=== PATIENT | female | born 1985 | race Caucasian/White ===

== ENCOUNTER → 2017-10-18 | Outpatient (CLI) | payer OTHER ==
[~2017-10-18] MED LIST: ALPR-411 PO; CLX20 PO; ZOLP10TA PO
== END | disposition home or self-care (01) ==
LOC: C.PAPS 14:27
PROVIDERS: ATTEND Physician Assistant
DX: Z01.411 Encounter for gynecological examination (general) (routine) with abnormal findings (principal)

== ENCOUNTER → 2017-12-06 | Outpatient (CLI) | payer OTHER | END | disposition home or self-care (01) | LOC: C.LABSPEC 11:33 | PROVIDERS: ATTEND Obstetrics & Gynecology | DX: O16.1 Unspecified maternal hypertension, first trimester (principal) ==

== ENCOUNTER → 2017-12-14 | Outpatient (CLI) | payer OTHER ==
[2017-12-14 14:37] LABS: BASO % 0.4 %; BASO ABS # 0.04 K/uL (0-0.2); EOS ABS # 0.11 K/uL (0-0.5); HEMATOCRIT 46.9 % (37-47); HEMOGLOBIN 16.7 g/dL (12.0-16.0); IG# 0.03 K/uL (0.00-0.02); LYMPH % 21.4 %; LYMPH ABS # 2.39 K/uL (1.2-3.4); MEAN CELL VOLUME 84.1 fL (80-100); MEAN CORPUSCULAR HEMOGLOBIN 29.9 pg (25-34); MEAN CORPUSCULAR HGB CONC 35.6 g/dl (32-36); MEAN PLATELET VOLUME 9.3 fL (7.4-10.4); MONO % 3.9 %; MONO ABS # 0.44 K/uL (0.11-0.59); NEUT ABS # 8.14 K/uL (1.4-6.5); PLATELET COUNT 311 K/uL (130-400); RED CELL DISTRIBUTION WIDTH CV 13.3 % (11.5-14.5); RED CELL DISTRIBUTION WIDTH SD 40.5 fL (36.4-46.3); WHITE BLOOD COUNT 11.15 K/uL (4.8-10.8)
== END | disposition home or self-care (01) ==
LOC: C.LAB1850 13:54
PROVIDERS: ATTEND Obstetrics & Gynecology
DX: O16.1 Unspecified maternal hypertension, first trimester (principal)

== ENCOUNTER → 2018-02-14 | Outpatient (CLI) | payer OTHER ==
[2018-02-14 14:14] LABS: BLOOD UREA NITROGEN 12 mg/dl (7-18); CREATININE 0.93 mg/dl (0.60-1.20); GLUCOSE 97 mg/dl (70-99)
[2018-02-14 14:15] LABS: ALBUMIN 3.9 gm/dl (3.4-5.0); ALKALINE PHOSPHATASE 32 U/L (45-117); ALT/SGPT 53 U/L (12-78); AST/SGOT 28 U/L (15-37); CALCIUM 8.8 mg/dl (8.5-10.1); CARBON DIOXIDE 25 mmol/L (21-32); CHOLESTEROL 234 mg/dl (0-200); LDL CHOLESTEROL CALCULATED 137 mg/dl; POTASSIUM 3.9 mmol/L (3.5-5.1); SODIUM 137 mmol/L (136-145); TOTAL PROTEIN 6.9 gm/dl (6.4-8.2)
== END | disposition home or self-care (01) ==
LOC: C.LABBC 10:03
PROVIDERS: ATTEND Nurse Practitioner Family
DX: I10 Essential (primary) hypertension (principal); E78.5 Hyperlipidemia, unspecified

== ENCOUNTER 2019-08-06 12:42 | Inpatient (IN) ==
[2019-08-06] MEDS ORDERED: MAG SULFATE 50% 1GM/2ML 10ML VIAL IV ONE (13:03)
[2019-08-06 13:18] LABS: Basophils # (auto) 0.04 K/uL (0-0.2); Basophils % (auto) 0.3 %; Eosinophils # (auto) 0.17 K/uL (0-0.5); Eosinophils % (auto) 1.2 %; Hematocrit (blood only) 44.1 % (37-47); Hemoglobin 15.3 g/dL (12.0-16.0); Immature Granulocytes # (auto) 0.06 K/uL (0.00-0.02); Immature Granulocytes % (auto) 0.4 %; Lymphocytes # (auto) 2.51 K/uL (1.2-3.4); Lymphocytes % (auto) 17.4 %; Mean Corpuscular Volume 83.5 fL (80-100); Mean Platelet Volume 10.8 fL (7.4-10.4); Monocytes # (auto) 0.67 K/uL (0.11-0.59); Monocytes % (auto) 4.6 %; Neutrophils # (auto) 10.96 K/uL (1.4-6.5); Neutrophils % (auto) 76.1 %; Platelet Count 210 K/uL (130-400); RDW Coefficient of Variation 14.6 % (11.5-14.5); RDW Standard Deviation 44.2 fL (36.4-46.3); Red Blood Count 5.28 M/uL (4.2-5.4); White Blood Count 14.41 K/uL (4.8-10.8)
[2019-08-06] MEDS ORDERED: LACTATED RINGER'S 1,000 ML IV PRN (13:19)
[2019-08-06 13:21] LABS: Mean Corpuscular Hgb Conc 34.7 g/dL (32-36)
[2019-08-06] MEDS ORDERED: LABETALOL HCL IV 5 MG/ML 20ML IV ONE ×3 (13:25→15:43)
[2019-08-06 13:26] LABS: INR 0.9 (0.9-1.1); Prothrombin Time 9.7 Seconds (9.0-12.0)
[2019-08-06] MEDS ORDERED: LABETALOL HCL IV 5 MG/ML 20ML IV STA ×2 (13:31→16:19)
[2019-08-06] MEDS ORDERED: MAGNESIUM SULFATE 4GM / WTR 100 ML BAG IV ONE ×2 (13:31→13:33)
[2019-08-06] MEDS ORDERED: MAGNESIUM SULFATE 40GM / WTR 1,000 ML BAG IV ONE (13:34)
[2019-08-06 13:36] LABS: Alanine Aminotransferase 16 U/L (12-78); Albumin Level 2.3 gm/dl (3.4-5.0); Aspartate Aminotransferase 19 U/L (15-37); Bilirubin Direct < 0.1 mg/dl (0-0.2); Est GFR (African American) 109.9; Est GFR (Non-African American) 94.9
[2019-08-06 13:38] LABS: Alkaline Phosphatase 79 U/L (45-117); Bilirubin,Total 0.2 mg/dl (0.2-1); Total Protein 6.1 gm/dl (6.4-8.2)
[2019-08-06 13:51] LABS: Creatinine Urine Random < 13.0 mg/dl; Total Protein Urine Random 90.1 mg/dl (0-11.9)
--- NOTE | 2019-08-06 14:08 | Anesthesiology Consultation ---
Date of Service August 06, 2019 Assessment & Plan Chart Review Chart Review: Acceptable Risk for Surgery Consults Requested none ASA [id number] Proposed Anesthesia Anesthesia Type: Spinal Risk / Benefits Reviewed With: PT / POA / Parent / Guardian, Accepts Plan and Informed Consent Obtained History Height/Weight Height: 5 ft 6 in Weight: 120.656 kg Allergies Allergy/AdvReac Type Severity Reaction Status Date / Time No Known Drug Allergies Allergy Verified 07/30/19 10:00 Medications Home Medications Medication Instructions Recorded Confirmed Last Taken PNV cmb#95-ferrous fumarate-FA 1 tab PO DAILY 01/09/19 07/30/19 01/08/19 [] labetalol 100 mg PO Q12 01/09/19 07/30/19 01/09/19 aspirin 81 mg tablet,delayed 81 mg PO DAILY 05/06/19 07/30/19 Unknown release acetone (urine) test #50 ea 07/12/19 07/30/19 Unknown blood sugar diagnostic #120 ea 07/12/19 07/30/19 Unknown lancets 33 gauge #120 ea 07/12/19 07/30/19 Unknown NPO Date Last Intake of Fluids: 08/06/19 Time Last Intake of Fluids: 11:30 Date Last Intake of Solids: 08/06/19 Time Last Intake of Solids: 11:00 Past Medical History Medical History (Updated 08/06/19 @ 14:06 by Quincy Pinto DO) Depression with anxiety Gestational diabetes History of miscarriage No chronic diseases present No significant past surgical history Obesity affecting , antepartum Secondary polycythemia Exercise / Class Metabolic Activity III < 4 Walking/Shop/Light housework Past Surgical History Surgical History S/P LEEP of cervix S/P wisdom tooth extraction Status post colposcopy Past Anesthesia History No Hx of Anesthesia Complications and No Family Hx of Anesthesia Complications History of PONV No Hx of PONV and No Hx of Motion Sickness Social History Smoking Status: Former smoker Do You Dip or Chew Tobacco: No Hx Alcohol Use: No Hx Substance Use: No Physical Exam Vital Signs Last Vital Signs Temp 97.9 F 08/06/19 13:09 Pulse 94 H 08/06/19 14:00 Resp 18 08/06/19 13:09 BP 215/110 H 08/06/19 13:56 Pulse Ox 97 08/06/19 14:00 ENMT Mouth: no dentition abnormality Thyromental Distance: > or= 3.5 Finger Breadths Mallampati Class: II Neck normal visual inspection Respiratory normal respiratory effort Auscultation: lungs clear to auscultation bilaterally Cardiovascular Rate/Rhythm: regular rate and regular rhythm Testing Laboratory Results 08/06/19 13:01 08/06/19 13:01 PT 9.7 Seconds (9.0-12.0) 08/06/19 13:01 INR 0.9 (0.9-1.1) 08/06/19 13:01
[2019-08-06] MEDS ORDERED: fentaNYL citrate 100 MCG/2 ML VIAL ONE (14:13)
[2019-08-06] MEDS ORDERED: MoRPHine SULFATE PF 1 MG/ML 10 ML AMP/VIAL ONE (14:13)
--- NOTE | 2019-08-06 14:13 | History & Physical Report ---
Date of Service August 06, 2019 Assessment & Plan (1) Supervision of high risk , antepartum: (2) Chronic hypertension with superimposed pre-eclampsia: -Nonstress test on labor and delivery is reactive -Patient with elevated blood pressure and +2 protein giving her the diagnosis of superimposed preeclampsia -Blood pressure levels are consistent with severe preeclampsia -Discussed the case with maternal- medicine at [facility] -Maternal- medicine in agreement that patient needs to be delivered -Discussed with the patient the need for urgent delivery by section -Induction of labor not indicated during due to the prolonged timeframe involved -Offered the patient trans-port to [facility] for delivery at tertiary care center, patient declines -Risks, benefits, and alternatives to the section discussed, all questions answered -Permit has been signed and the patient wishes to proceed History of Present Illness Chief Complaint: Elevated blood pressure Primary Care Provider: Pepe Valderrama III, VEE The patient is a 34-year-old 2 para 0 with an EDC of 07 September by dates and first trimester ultrasound, at 35+ weeks gestational age, who presents today from the office for evaluation of elevated blood pressure. The patient carries a diagnosis of chronic hypertension predating the . She has been on labetalol 100 mg twice daily throughout the . Patient was seen today for a scheduled nonstress test. She was noted to have markedly elevated blood pressures in the 200/120 range and was sent to labor and delivery for evaluation. The patient is not complaining of any headache or right upper quadrant pain. She has noticed an increase in the swelling over the last 48 hours but in general she states that she feels well. The patient has been followed with the chronic hypertensive protocol. She has been on baby aspirin since the first trimester. She has had serial ultrasounds for growth which have been reassuring and has had testing which has been reassuring. Patient was also diagnosed with diabetes gestational at 28 weeks gestational age and has been diet controlled. Laboratory values for this show blood type of A+, antibody negative, rubella immune, hepatitis B negative, HIV negative, the patient declined all genetic screening both maternal and , gestational diabetes diagnosed to 28 weeks, no third trimester beta strep culture. Allergies Allergy/AdvReac Type Severity Reaction Status Date / Time No Known Drug Allergies Allergy Verified 07/30/19 10:00 Home Medications Home Medications Medication Instructions Recorded Confirmed Type PNV cmb#95-ferrous fumarate-FA 1 tab PO DAILY 01/09/19 07/30/19 History [] labetalol 100 mg PO Q12 01/09/19 07/30/19 History aspirin 81 mg tablet,delayed 81 mg PO DAILY 05/06/19 07/30/19 History release acetone (urine) test #50 ea 07/12/19 07/30/19 Rx blood sugar diagnostic #120 ea 07/12/19 07/30/19 Rx lancets 33 gauge #120 ea 07/12/19 07/30/19 Rx Patient History Medical History (Updated 08/06/19 @ 14:10 by Guillermo Adams Jr, MD, FACOG) Depression with anxiety Gestational diabetes History of miscarriage No chronic diseases present No significant past surgical history Obesity affecting , antepartum Secondary polycythemia Surgical History S/P LEEP of cervix S/P wisdom tooth extraction Status post colposcopy Social History Preferred Language: Ivorian marital status: Feels Safe at Home: Yes Safety Concerns: Feels Safe At This Time Smoking Status: Former smoker Do You Dip or Chew Tobacco: No ; Second Hand Exposure: No ; Tobacco Cessation Education Requested by Patient: No Hx Alcohol Use: No Hx Substance Use: No Physical Exam Constitutional: WD/WN, vitals as above Neck: trachea midline, no thyromegaly Respiratory: normal respiratory effort, lungs clear to auscultation Cardiovascular: RRR, no murmur, no edema Extremities: + edema (3+ pitting of lower extremities bilaterally); no calf tenderness Gastrointestinal (Abdomen): Gravid, vertex, positive heart tones, estimated weight of 5 and half pounds Skin: no lesions Neurologic: patellar DTR's 2+ bilat, sensation intact Psychiatric: A+Ox3, euthymic affect Genitourinary: Cervix: closed/50%/-2 Lymphatic: no lymphadenopathy Results & Data Vital Signs (Past 12 Hours) Vital Signs Temp Pulse Resp BP Pulse Ox 08/06/19 14:00 94 H 97 08/06/19 13:56 82 215/110 H 08/06/19 13:55 79 99 08/06/19 13:51 76 214/107 H 08/06/19 13:50 82 99 08/06/19 13:46 86 222/116 H 08/06/19 13:45 79 98 08/06/19 13:41 89 227/110 H 08/06/19 13:40 91 H 98 08/06/19 13:36 89 244/128 H 08/06/19 13:35 96 H 99 08/06/19 13:32 105 H 239/136 H 08/06/19 13:30 104 H 98 08/06/19 13:25 85 98 08/06/19 13:21 82 226/120 H 08/06/19 13:20 74 98 08/06/19 13:18 78 233/114 H 08/06/19 13:15 76 99 08/06/19 13:12 75 227/109 H 08/06/19 13:09 97.9 F 75 18 227/109 H 99 08/06/19 13:06 68 216/108 H 08/06/19 13:01 79 212/107 H 08/06/19 12:56 76 219/111 H 08/06/19 12:54 76 225/112 H 08/06/19 12:50 77 218/105 H
[2019-08-06] MEDS ORDERED: OXYTOCIN 10 UNITS/ML VIAL ONE ×5 (14:17→15:20)
[2019-08-06] MEDS ORDERED: CITRIC ACID/SODIUM CITRATE 15 ML UDC ONE (14:33)
[2019-08-06] MEDS ORDERED: ePHEDrine sulfate 50 MG/ML AMP IV PRN (15:15)
[2019-08-06] MEDS ORDERED: NALOXONE HCL 0.4 MG/1 ML VIAL/CARP IV PRN (15:15)
[2019-08-06] MEDS ORDERED: NALBUPHINE HCL INJ 10 MG/ML AMP IV PRN (15:15)
[2019-08-06] MEDS ORDERED: DC INTRASPINAL MORPHINE SCH (15:15)
[2019-08-06] MEDS ORDERED: NALOXONE HCL 0.08 MG in SYRINGE 1.8 ML IV PRN (15:15)
[2019-08-06] MEDS ORDERED: MEPERIDINE HCL 25 MG/ML CARP IV PRN (15:15)
[2019-08-06] MEDS ORDERED: DiphenhydrAMINE HCL 50 MG/ML VIAL IV PRN (15:15)
[2019-08-06] MEDS ORDERED: LACTATED RINGER'S 500 ML IV PRN (15:15)
[2019-08-06] MEDS ORDERED: NALOXONE HCL 1 MG in SODIUM CHLORIDE 0.9% 1000ML 1,000 ML IV PRN (15:15)
[2019-08-06] MEDS ORDERED: NO NARCOTICS OR SEDATIVES SCH (15:15)
[2019-08-06] MEDS ORDERED: MoRPHine SULFATE PF 1 MG/ML 10 ML AMP/VIAL INT SPINAL ONE (15:15)
[2019-08-06] MEDS ORDERED: SODIUM CHLORIDE 0.9% 1000ML 1,000 ML IV SCH (15:15)
[2019-08-06] MEDS ORDERED: KETOROLAC 30 MG/ML VIAL IV PRN (15:15)
[2019-08-06] MEDS ORDERED: ONDANSETRON INJ 2 MG/ML 2 ML VIAL ONE (15:20)
[2019-08-06 15:40] LABS: CO2 Cord Arterial Blood 44 mmHg (39.1-73.5); HCO3 Cord Arterial Blood 26 mmol/L (19.7-28.5); Oxygen Sat Cord Arterial Blood < 60.0 % (<60); PO2 Cord Arterial Blood 26.6 % (4.1-31.7); pH Cord Arterial Blood 7.38 (7.1-7.38)
[2019-08-06 15:44] LABS: Base Excess Cord Venous Blood -2.7 mEq/L (-7.7-1.9); Cord Venous Blood HCO3 22 mmol/L (18.4-26.8); Cord Venous Blood PCO2 36 mmHg (30.4-57.2); Cord Venous Blood PO2 31 mmHg (14.1-43.3); O2 Saturation Cord Venous Bld 69.2 % (<68)
--- NOTE | 2019-08-06 15:47 | Post Operative Brief Note ---
PG Immediate Post Op with CF Date of Surgery August 06, 2019 Pre & Post Diagnosis Operation Date: 08/06/19 14:30 Pre-Op Diagnosis: 1.High Risk at 35 1/7 weeks 2.Chronic Hypertension 3.Superimposed Preeclampsia, Severe Post-Op Diagnosis: Same; Delivery of a live female child at 1504 I identified the patient and participated in the time-out.: Yes Procedure Operation Date: 08/06/19 14:30 Actual Procedures p Section in LD(Bilateral) - Guillermo Adams Jr, MD, FACOG Surgeon Guillermo Adams Jr, MD, FACOG [facility] Therapist Cristy Estimated Blood Loss 800 Findings See Below (viable female, Apgars 7/8, 5lbs 12 ozs, art pH 7.38, venous pH 7.40, normal appearing tunes and ovaries bilaterally) Specimens Specimen Description: A.Placenta-exam B.Cord Blood C.Arterial and Venous Gases Drains Aranda Catheter
[2019-08-06] MEDS: MAGNESIUM SULFATE / WTR 40 GM/1,000 ML BAG IV SCH (15:58)
[2019-08-06] MEDS ORDERED: BENZOCAINE 20% AER SPR 82.5 GM CAN EXT PRN (16:19)
[2019-08-06] MEDS ORDERED: SUPERCREAM 0.870% 15 GM JAR EXT PRN (16:19)
[2019-08-06] MEDS ORDERED: ONDANSETRON INJ 2 MG/ML 2 ML VIAL IV PRN (16:19)
[2019-08-06] MEDS ORDERED: HYDROCORTISONE ACETATE 25 MG SUPP PR PRN (16:19)
--- NOTE | 2019-08-06 16:43 | Anesthesiology Progress Note ---
Date of Service August 06, 2019 Anesthesia Post Procedure Vital Signs Vital Signs: Temp Pulse Resp BP Pulse Ox 08/06/19 16:39 81 95 08/06/19 16:38 82 180/83 H 94 08/06/19 16:34 81 96 08/06/19 16:30 74 185/89 H 08/06/19 16:29 77 97 08/06/19 16:24 79 96 08/06/19 16:19 78 145/78 H 96 08/06/19 16:14 76 96 08/06/19 16:09 75 96 08/06/19 16:08 75 184/84 H 08/06/19 16:07 80 93 08/06/19 16:04 77 96 08/06/19 15:59 77 97 08/06/19 15:57 75 172/82 H 08/06/19 15:54 77 96 08/06/19 14:35 87 97 08/06/19 14:33 82 217/100 H 08/06/19 14:32 90 94 08/06/19 14:30 80 98 08/06/19 14:26 84 192/90 H 08/06/19 14:25 80 97 08/06/19 14:21 82 202/96 H 08/06/19 14:20 83 97 08/06/19 14:15 93 H 97 08/06/19 14:11 85 199/95 H 08/06/19 14:10 90 98 08/06/19 14:06 80 212/98 H 08/06/19 14:05 79 98 08/06/19 14:03 83 213/113 H 08/06/19 14:00 94 H 97 08/06/19 13:56 82 215/110 H 08/06/19 13:55 79 99 08/06/19 13:51 76 214/107 H 08/06/19 13:50 82 99 08/06/19 13:46 86 222/116 H 08/06/19 13:45 79 98 08/06/19 13:41 89 227/110 H 08/06/19 13:40 91 H 98 08/06/19 13:36 89 244/128 H 08/06/19 13:35 96 H 99 08/06/19 13:32 105 H 239/136 H 08/06/19 13:30 104 H 98 08/06/19 13:25 85 98 08/06/19 13:21 82 226/120 H 08/06/19 13:20 74 98 08/06/19 13:18 78 233/114 H 08/06/19 13:15 76 99 08/06/19 13:12 75 227/109 H 08/06/19 13:09 97.9 F 75 18 227/109 H 99 08/06/19 13:06 68 216/108 H 08/06/19 13:01 79 212/107 H 08/06/19 12:56 76 219/111 H 08/06/19 12:54 76 225/112 H 08/06/19 12:50 77 218/105 H Transfer of Care Handoff Completed per policy Notes Mental Status: alert / awake / arousable and participated in evaluation Patient Amnestic to Procedure: Yes Nausea / Vomiting: adequately controlled Pain: adequately controlled Airway Patency, RR, SpO2: stable & adequate BP & HR: stable & adequate Hydration State: stable & adequate Neuraxial Anesthesia: was administered and sensory block is resolving Anesthetic Complications: no major complications apparent and Pt Satisfied with anesthetic care
[2019-08-06] MEDS: OXYTOCIN 20 UNITS in LACTATED RINGER'S 1,000 ML IV SCH (17:18)
--- NOTE | 2019-08-06 18:05 | Operative Report ---
DATE OF OPERATION: 08/06/2019 PREOPERATIVE DIAGNOSES: 1. Complicated at 35+ weeks gestational age. 2. Chronic hypertension. 3. Superimposed preeclampsia, severe. POSTOPERATIVE DIAGNOSES: 1. Complicated at 35+ weeks gestational age. 2. Chronic hypertension. 3. Superimposed preeclampsia, severe. PROCEDURE PERFORMED: Primary low cervical transverse section. SURGEON: Guillermo Adams MD. ROOM WORKER: Dr. Temo Muniz. ANESTHESIA: Spinal. FINDINGS: Viable female with Apgars of 7 and 8 and weight of 5 pounds 12 ounces. Arterial cord pH 7.38, venous cord pH 7.40. Normal appearing tubes and ovaries bilaterally. PROCEDURE IN DETAIL: The patient was taken to the operating room and after spinal anesthesia, was placed in supine position and draped and prepped in the usual fashion. Pfannenstiel type incision was made. Underlying subcutaneous tissue was dissected down to the ventral abdominal fascia, which was nicked and opened in a horizontal manner. Preperitoneal fascia was dissected away until the peritoneal cavity was entered and opened in a vertical manner. Bladder blade was placed and the peritoneum overlying the uterus was elevated, opened in a semi-lunar fashion. The inferior margin of which was taken down creating the bladder flap. The uterus was entered sharply and extended in a semilunar fashion manually. Viable female infant was delivered from a cephalic presentation. Cord was clamped and cut and the baby was passed off to Pediatrics who was in attendance for the delivery. Cord gases, cord blood samples obtained. Placenta delivered spontaneously and sent for pathological evaluation. The uterus was then exteriorized. The uterine cavity was wiped clean of any residual blood tissue and/or clot. The patient received Hemabate 250 mcg directly into the myometrium. Uterine incision was then closed with 2 layers of 4-0 Vicryl, the first a running locking stitch, the second an imbricating stitch. The patient then received Pitocin 20 units directly into the myometrium. Hemostasis was present. The uterus was returned to the pelvic cavity. The pericolic gutters were cleared bilaterally of any blood tissue or clot. The pelvis was thoroughly irrigated with 1000 mL of warm saline and removed. All pedicles were inspected for hemostasis. Sponge and needle count was correct. Rectus muscle was plicated in the midline with a running 2-0 Vicryl stitch. The fascia was closed laterally to the midline with a running 0 Vicryl suture. The subcutaneous tissue was irrigated with warm saline and then reapproximated with interrupted 2-0 plain sutures. The skin incision was closed with 4-0 Vicryl subcuticular suture. Sterile dressing was applied and the patient was taken to the recovery room in satisfactory condition. I attest to the content of the Intraoperative Record and any orders documented therein. Any exception s are noted below.
[2019-08-06] MEDS ORDERED: Nursing to Pharmacy Communication ONE (19:24)
[2019-08-06 19:58] LABS: Basophils # (auto) 0.02 K/uL (0-0.2); Basophils % (auto) 0.1 %; Eosinophils # (auto) 0.11 K/uL (0-0.5); Eosinophils % (auto) 0.6 %; Hematocrit (blood only) 40.9 % (37-47); Immature Granulocytes # (auto) 0.06 K/uL (0.00-0.02); Immature Granulocytes % (auto) 0.3 %; Lymphocytes # (auto) 2.08 K/uL (1.2-3.4); Lymphocytes % (auto) 11.5 %; Mean Corpuscular Hemoglobin 28.9 pg (25-34); Mean Corpuscular Volume 84.5 fL (80-100); Mean Platelet Volume 10.9 fL (7.4-10.4); Monocytes # (auto) 0.74 K/uL (0.11-0.59); Monocytes % (auto) 4.1 %; Neutrophils # (auto) 15.04 K/uL (1.4-6.5); Neutrophils % (auto) 83.4 %; Platelet Count 216 K/uL (130-400); RDW Coefficient of Variation 14.5 % (11.5-14.5); RDW Standard Deviation 44.6 fL (36.4-46.3); Red Blood Count 4.84 M/uL (4.2-5.4); White Blood Count 18.05 K/uL (4.8-10.8)
[2019-08-06 20:21] LABS: Alanine Aminotransferase 15 U/L (12-78); Albumin Level 2.1 gm/dl (3.4-5.0); Alkaline Phosphatase 68 U/L (45-117); Aspartate Aminotransferase 18 U/L (15-37); Bilirubin Direct < 0.1 mg/dl (0-0.2); Bilirubin,Total 0.2 mg/dl (0.2-1); Magnesium Therapeutic L&D Only 4.5 mg/dL (4.0-8.0); Total Protein 5.4 gm/dl (6.4-8.2)
[2019-08-06 20:34] LABS: Mean Corpuscular Hgb Conc 34.2 g/dL (32-36)
[2019-08-06] MEDS: LABETALOL HCL 100 MG TAB PO SCH (20:35)
[2019-08-07 01:56] LABS: Basophils # (auto) 0.01 K/uL (0-0.2); Basophils % (auto) 0.1 %; Eosinophils # (auto) 0.14 K/uL (0-0.5); Hemoglobin 12.8 g/dL (12.0-16.0); Immature Granulocytes # (auto) 0.02 K/uL (0.00-0.02); Immature Granulocytes % (auto) 0.1 %; Lymphocytes # (auto) 1.98 K/uL (1.2-3.4); Lymphocytes % (auto) 14.8 %; Mean Corpuscular Hemoglobin 29.4 pg (25-34); Mean Corpuscular Volume 85.1 fL (80-100); Mean Platelet Volume 10.6 fL (7.4-10.4); Monocytes # (auto) 0.53 K/uL (0.11-0.59); Neutrophils # (auto) 10.69 K/uL (1.4-6.5); Platelet Count 178 K/uL (130-400); RDW Coefficient of Variation 14.4 % (11.5-14.5); RDW Standard Deviation 44.3 fL (36.4-46.3); Red Blood Count 4.35 M/uL (4.2-5.4); White Blood Count 13.37 K/uL (4.8-10.8)
[2019-08-07 02:21] LABS: Mean Corpuscular Hgb Conc 34.6 g/dL (32-36)
[2019-08-07] MEDS ORDERED: CITRIC ACID/SODIUM CITRATE 15 ML UDC PO SCH (06:00)
[2019-08-07] MEDS ORDERED: CEFAZOLIN 3000MG 65 ML IV SCH (06:00)
[2019-08-07] MEDS: OXYTOCIN 20 UNITS in LACTATED RINGER'S 1,000 ML IV SCH (06:45)
--- NOTE | 2019-08-07 06:52 | Obstetrical Progress Note ---
Date of Service <Blair Osorioarianna - Last Filed: 08/07/19 06:55> August 07, 2019 Assessment & Plan <DO Srinivasa Kaufman Last Filed: 08/07/19 06:55> (1) Chronic hypertension with superimposed pre-eclampsia: -POD#1 - secondary to chronic hypertension with superimposed severe preeclampsia - Continue to monitor BP, most recent 170/81. Max >220/>130 prepartum. - GBS unknown, Blood Type A+ - 3g Ancef given pre-op - Continue magnesium 2g/hr and monitor for signs of worsening preeclampsia. - 2AM Magnesium level 5.0 - Labetalol 100mg BID - Currently noting slight headache, denies SOB, visual changes, worsening swelling, RUQ pain. - Boswell Catheter in place. - Pain well controlled. - Routine post care - After discharge will have [address] Angie Holman #:: 1 Subjective <Blair Osorioarianna - Last Filed: 08/07/19 06:55> Ambulation: limited ambulation Voiding: boswell catheter in place (clear yellow urine draining) Passing Gas:: No Diet Tolerance:: clear liquids Lochia:: Small Feeding Type:: breast feeding (attempting, baby supplementing with syringe feeds) Current Pain Level(1-10): 0 (drastically improves with analgesics) Patient is a 34 POD#1. Patient notes that she is feeling better this AM and that she is fairly used to the "bad feeling" the magnesium initially gave her. She also notes that her abdominal pain is minimal secondary to analgesics. She does disclose a dull 2/10 headache in the front of her forehead which she states started around 4 hours ago. She denies any increased swelling, RUQ pain, or visual changes. Constitutional: no fever and no chills Eyes: no eye pain and no worsening vision Respiratory: no cough, no dyspnea and no wheezing Cardiovascular: + edema; no chest pain, no dyspnea, no dyspnea on exertion and no calf pain Breast: no breast pain Gastrointestinal: + abdominal pain (with movement ); no nausea and no vomiting Boswell Catheter Neurologic: + headache(s) (dull 2/10 frontal ) Physical Exam <Blair DiyaDO Srinivasa noland Last Filed: 08/07/19 06:55> Constitutional WD/WN, vitals as above Respiratory normal respiratory effort, lungs clear to auscultation Cardiovascular Rate/Rhythm: regular rate and regular rhythm Heart Sounds: normal S1 and normal S2; no click, no gallop, no murmur and no cardiac rub Extremities: + edema (+2-3); no calf tenderness Gastrointestinal (Abdomen) Inspection/Auscultation: abdomen normal to inspection, normal bowel sounds and + abdominal surgical incision (Dressing Clean and Dry) Percussion/Palpation: abdomen soft; abdomen nontender and no guarding Musculoskeletal Extremities: strength 5/5 throughout Neurologic patellar DTR's 2+ bilat, sensation intact Genitourinary OB Exam Abdomen: + fundal height Fundus: + firm and + relation to umbilicus (1cm below ); not tender and not boggy Boswell Catheter in place draining clear yellow urine Results & Data <Blair Keane DO - Last Filed: 08/07/19 06:55> Vital Signs (Past 12 Hours) Vital Signs Temp Pulse Resp BP Pulse Ox 08/07/19 06:39 83 97 08/07/19 06:34 88 97 08/07/19 06:29 84 97 08/07/19 06:24 90 96 08/07/19 06:19 82 94 08/07/19 06:16 81 151/71 H 08/07/19 06:14 82 94 08/07/19 06:09 83 96 08/07/19 06:04 80 95 08/07/19 06:01 80 18 154/72 H 95 08/07/19 05:59 82 95 08/07/19 05:54 84 95 08/07/19 05:49 82 94 08/07/19 05:46 82 159/69 H 08/07/19 05:44 86 95 08/07/19 05:39 88 95 08/07/19 05:34 81 95 08/07/19 05:31 81 164/77 H 08/07/19 05:29 87 96 08/07/19 05:24 79 95 08/07/19 05:19 81 95 08/07/19 05:16 81 155/69 H 08/07/19 05:14 87 95 08/07/19 05:09 82 95 08/07/19 05:04 83 96 08/07/19 05:01 80 18 155/73 H 96 08/07/19 04:59 81 95 08/07/19 04:54 82 95 08/07/19 04:49 85 94 08/07/19 04:46 82 164/82 H 08/07/19 04:44 81 95 08/07/19 04:39 87 97 08/07/19 04:34 89 97 08/07/19 04:31 85 160/77 H 08/07/19 04:29 82 95 08/07/19 04:24 81 96 08/07/19 04:19 80 94 08/07/19 04:16 82 159/76 H 08/07/19 04:14 81 95 08/07/19 04:09 83 95 08/07/19 04:04 86 95 08/07/19 04:01 82 147/69 H 08/07/19 04:00 18 96 08/07/19 03:59 86 96 08/07/19 03:54 81 95 08/07/19 03:49 86 95 08/07/19 03:46 84 150/71 H 08/07/19 03:44 82 95 08/07/19 03:39 87 96 08/07/19 03:34 84 96 08/07/19 03:31 83 151/72 H 08/07/19 03:29 86 96 08/07/19 03:24 83 95 08/07/19 03:19 82 95 08/07/19 03:16 83 153/72 H 08/07/19 03:14 84 95 08/07/19 03:09 88 96 08/07/19 03:04 82 95 08/07/19 03:01 36.5 C 85 18 152/70 H 96 08/07/19 02:59 84 95 08/07/19 02:54 84 94 08/07/19 02:49 82 95 08/07/19 02:46 82 148/67 H 08/07/19 02:44 85 96 08/07/19 02:39 86 95 08/07/19 02:34 85 95 08/07/19 02:31 85 153/73 H 08/07/19 02:29 84 94 08/07/19 02:24 85 95 08/07/19 02:19 86 96 08/07/19 02:16 82 152/71 H 08/07/19 02:14 87 96 08/07/19 02:09 89 96 11/13/19 02:04 83 95 08/07/19 02:01 86 18 155/76 H 96 08/07/19 01:59 86 96 08/07/19 01:54 83 96 08/07/19 01:49 87 96 08/07/19 01:46 85 143/68 H 08/07/19 01:44 82 96 08/07/19 01:39 85 96 08/07/19 01:34 89 95 08/07/19 01:31 81 159/74 H 08/07/19 01:29 84 95 08/07/19 01:24 84 95 08/07/19 01:19 84 96 08/07/19 01:16 82 161/75 H 08/07/19 01:14 86 96 08/07/19 01:09 84 95 08/07/19 01:04 85 97 08/07/19 01:01 85 20 145/74 H 95 08/07/19 00:59 88 98 08/07/19 00:54 82 96 08/07/19 00:49 87 98 08/07/19 00:46 82 157/76 H 08/07/19 00:44 87 96 08/07/19 00:39 83 96 08/07/19 00:34 82 95 08/07/19 00:31 82 149/70 H 08/07/19 00:29 83 96 08/07/19 00:24 84 95 08/07/19 00:19 85 97 08/07/19 00:16 81 156/70 H 08/07/19 00:14 84 97 08/07/19 00:09 82 96 08/07/19 00:04 85 96 08/07/19 00:01 82 18 162/77 H 96 08/06/19 23:59 84 96 08/06/19 23:54 82 95 08/06/19 23:49 81 96 08/06/19 23:46 81 157/73 H 08/06/19 23:44 83 96 08/06/19 23:39 83 95 08/06/19 23:34 85 95 08/06/19 23:31 78 162/76 H 08/06/19 23:29 83 95 08/06/19 23:24 81 96 08/06/19 23:19 84 97 08/06/19 23:16 82 174/79 H 08/06/19 23:14 83 97 08/06/19 23:09 84 95 08/06/19 23:04 82 96 08/06/19 23:01 36.5 C 78 18 166/74 H 95 08/06/19 22:59 81 96 08/06/19 22:54 78 96 08/06/19 22:49 79 96 08/06/19 22:46 77 169/79 H 08/06/19 22:44 80 95 08/06/19 22:39 85 96 08/06/19 22:34 81 96 08/06/19 22:31 76 153/74 H 08/06/19 22:29 80 95 08/06/19 22:24 82 95 08/06/19 22:19 82 97 08/06/19 22:16 78 166/78 H 08/06/19 22:14 79 96 08/06/19 22:09 83 97 08/06/19 22:04 84 97 08/06/19 22:01 86 18 170/85 H 97 08/06/19 21:59 81 98 08/06/19 21:54 84 97 08/06/19 21:49 85 96 08/06/19 21:46 80 167/79 H 08/06/19 21:44 84 95 08/06/19 21:39 83 97 08/06/19 21:34 85 97 08/06/19 21:31 77 168/83 H 08/06/19 21:29 81 96 08/06/19 21:24 85 95 08/06/19 21:19 81 96 08/06/19 21:16 77 171/83 H 08/06/19 21:14 83 96 08/06/19 21:09 83 97 08/06/19 21:04 80 98 08/06/19 21:01 77 18 177/86 H 98 08/06/19 20:59 81 96 08/06/19 20:54 80 98 08/06/19 20:49 81 97 08/06/19 20:46 82 177/88 H 08/06/19 20:44 81 96 08/06/19 20:39 81 97 08/06/19 20:34 77 97 08/06/19 20:31 78 185/91 H 08/06/19 20:29 81 95 08/06/19 20:24 81 97 08/06/19 20:19 81 97 08/06/19 20:16 78 193/93 H 08/06/19 20:14 80 98 08/06/19 20:09 82 99 08/06/19 20:04 76 97 08/06/19 20:01 75 18 181/82 H 08/06/19 19:59 76 97 08/06/19 19:54 78 97 08/06/19 19:49 71 95 08/06/19 19:46 74 182/86 H 08/06/19 19:44 77 98 08/06/19 19:39 75 98 08/06/19 19:34 78 97 08/06/19 19:31 76 177/83 H 08/06/19 19:29 73 99 08/06/19 19:24 74 98 08/06/19 19:19 76 98 08/06/19 19:14 77 97 08/06/19 19:09 78 97 08/06/19 19:04 77 97 08/06/19 19:01 36.8 C 75 18 171/77 H 97 08/06/19 18:59 78 96 08/06/19 18:54 78 97 08/06/19 18:49 81 97 08/06/19 18:44 79 97 Laboratory Results Abnormal lab results 08/06/19 08/06/19 08/06/19 Range/Units 13:01 13:01 13:07 WBC 14.41 H (4.8-10.8) K/uL RDW Coeff of Ximena 14.6 H (11.5-14.5) % MPV 10.8 H (7.4-10.4) fL Immature Gran # (Auto) 0.06 H (0.00-0.02) K/uL Neut # (Auto) 10.96 H (1.4-6.5) K/uL [place] # (Auto) 0.67 H (0.11-0.59) K/uL Cord VBG O2 Sat (<68) % Total Protein 6.1 L (6.4-8.2) gm/dl Albumin 2.3 L (3.4-5.0) gm/dl U Random Total Protein 90.1 H (0-11.9) mg/dl 11/09/1208/06/19 08/06/19 Range/Units 15:04 19:47 19:47 WBC 18.05 H (4.8-10.8) K/uL RDW Coeff of [place]im[place] (11.5-14.5) % MPV 10.9 H (7.4-10.4) fL Immature Gran # (Auto) 0.06 H (0.00-0.02) K/uL Neut # (Auto) 15.04 H (1.4-6.5) K/uL [place] # (Auto) 0.74 H (0.11-0.59) K/uL Cord VBG O2 Sat 69.2 H (<68) % Total Protein 5.4 L (6.4-8.2) gm/dl Albumin 2.1 L (3.4-5.0) gm/dl U Random Total Protein (0-11.9) mg/dl 08/07/19 Range/Units 01:48 WBC 13.37 H (4.8-10.8) K/uL RDW Coeff of [place] (11.5-14.5) % MPV 10.6 H (7.4-10.4) fL Immature Gran # (Auto) (0.00-0.02) K/uL Neut # (Auto) 10.69 H (1.4-6.5) K/uL [place] # (Auto) (0.11-0.59) K/uL Cord VBG O2 Sat (<68) % Total Protein (6.4-8.2) gm/dl Albumin (3.4-5.0) gm/dl U Random Total Protein (0-11.9) mg/dl Medications Administered Current Inpatient Medications Benzocaine (Dermoplast Pain Relieving [place]) 1 appln EXT UD PRN PRN Reason: use on skin as needed Stop: 09/05/19 16:18 Cocaine HCl (Supercream 0.870%) 1 gm EXT UD PRN PRN Reason: hemmorrhoidal inflammation Stop: 08/20/19 16:18 Diphenhydramine HCl (Benadryl) 25 mg IV Q6H PRN PRN Reason: pruritis Stop: 08/07/19 09:15 Diphenhydramine HCl (Benadryl Capsule) 25 mg PO QID PRN PRN Reason: Itching Stop: 09/06/19 09:14 Diphenhydramine HCl (Benadryl) 25 mg IV QID PRN PRN Reason: Itching Stop: 09/06/19 09:14 Ephedrine Sulfate (Ephedrine Sulfate) 10 mg IV Q5M PRN PRN Reason: Hypotension Stop: 08/07/19 09:15 Hydrocortisone (Anusol Hc) 25 mg OR BID PRN PRN Reason: Hemorrhoids Stop: 09/05/19 16:18 Magnesium Sulfate (Magnesium Sulfate / Wtr) 40 gm in 1,000 mls @ 50 mls/hr IV .Q20H JAIDEN Stop: 09/05/19 13:44 Naloxone HCl 1 mg/ Sodium (Chloride) 1,002.5 mls @ 50 mls/hr IV .Q20H3M PRN PRN Reason: itching or nausea Stop: 08/07/19 09:15 Naloxone HCl 0.08 mg/ Syringe 2 mls @ 1 mls/min IV Q30M PRN; Protocol PRN Reason: Urinary Retention Stop: 08/07/19 09:15 Oxytocin 20 units/ Lactated (Ringer's) 1,002 mls @ 75 mls/hr IV .[id number] JAIDEN Stop: 08/07/19 16:55 Last Admin: 08/07/19 06:45 Dose: 75 mls/hr Documented by: Magnesium Sulfate (Magnesium Sulfate / Wtr) 40 gm in 1,000 mls @ 50 mls/hr IV .Q20H JAIDEN Stop: 09/05/19 16:18 Last Infusion: 08/07/19 06:01 Dose: 50 mls/hr Documented by: Ibuprofen (Motrin) 600 mg PO Q4H PRN PRN Reason: Pain Stop: 09/06/19 09:14 Ketorolac Tromethamine (Toradol) 30 mg IV Q6H PRN PRN Reason: Breakthrough Surgical Pain Stop: 08/07/19 09:15 Last Admin: 08/07/19 04:36 Dose: 30 mg Documented by: Ketorolac Tromethamine (Toradol) 30 mg IV Q6H PRN PRN Reason: Pain Stop: 08/12/19 09:14 Labetalol HCl (Normodyne) 100 mg PO Q12 JAIDEN Stop: 09/05/19 20:59 Last Admin: 08/06/19 20:35 Dose: 100 mg Documented by: Magnesium Hydroxide (Milk Of Magnesia) 30 ml PO [facility] Stop: 09/06/19 20:59 Meperidine HCl (Demerol) 25 mg IV Q15M PRN PRN Reason: Breakthrough Surgical Pain Stop: 08/07/19 09:15 Miscellaneous (No Narcotics Or Sedatives) 1 ea N/A UD [facility] Stop: 08/07/19 09:15 Miscellaneous Information (Dc Intraspinal Morphine) 1 ea N/A UD [facility] Stop: 08/07/19 09:15 Nalbuphine HCl (Nubain) 5 mg IV Q10M PRN PRN Reason: itching or nausea Stop: 08/07/19 09:15 Naloxone HCl (Narcan) 0.1 mg IV UD PRN PRN Reason: Respiratory Depression Stop: 08/07/19 09:15 Ondansetron HCl (Zofran) 4 mg IV Q4H PRN PRN Reason: Nausea And Vomiting Stop: 09/05/19 16:18 Last Admin: 08/06/19 20:56 Dose: 4 mg Documented by: Oxycodone/Acetaminophen (Percocet 5mg/325mg) 1 - 2 tab PO Q4H PRN PRN Reason: Pain Stop: 08/21/19 09:14 Prenat Multivit/[place]/Iron/Folic Ac ( Vitamin) 1 tab PO DAILY@08 [facility] Stop: 09/06/19 07:59 Sennosides (Senokot) 17.2 mg PO [facility] Stop: 09/06/19 20:59 <Guillermo Adams Jr, MD, FACOG - Last Filed: 08/07/19 07:28> Co-Signing Physician Notes Resident Physician Supervision Note: I was present with Dr. Keane during the history and exam. I discussed the case with the resident and agree with the findings and plan as documented in the note. Any exceptions or clarifications are listed here: Reviewed clinical course from yesterday. BP coming down, diuresing, continue Mg for 24 hours Documented By: Guillermo Adams Jr, MD, FACOG Resident Activity Tracking <Blair Keane DO - Last Filed: 08/07/19 06:55> Resident Involvement: Resident Care Provided Care Provided: OB Delivery
[2019-08-07 08:08] LABS: Basophils # (auto) 0.02 K/uL (0-0.2); Basophils % (auto) 0.2 %; Eosinophils # (auto) 0.12 K/uL (0-0.5); Eosinophils % (auto) 0.9 %; Hematocrit (blood only) 35.9 % (37-47); Hemoglobin 12.3 g/dL (12.0-16.0); Immature Granulocytes # (auto) 0.02 K/uL (0.00-0.02); Immature Granulocytes % (auto) 0.2 %; Lymphocytes # (auto) 1.62 K/uL (1.2-3.4); Lymphocytes % (auto) 12.6 %; Mean Corpuscular Hemoglobin 28.7 pg (25-34); Mean Corpuscular Volume 83.9 fL (80-100); Mean Platelet Volume 10.2 fL (7.4-10.4); Monocytes # (auto) 0.45 K/uL (0.11-0.59); Monocytes % (auto) 3.5 %; Neutrophils % (auto) 82.6 %; Platelet Count 189 K/uL (130-400); RDW Coefficient of Variation 14.5 % (11.5-14.5); RDW Standard Deviation 44.7 fL (36.4-46.3); Red Blood Count 4.28 M/uL (4.2-5.4); White Blood Count 12.83 K/uL (4.8-10.8)
[2019-08-07 08:09] LABS: Mean Corpuscular Hgb Conc 34.3 g/dL (32-36)
[2019-08-07 08:31] LABS: Alanine Aminotransferase 13 U/L (12-78); Alkaline Phosphatase 61 U/L (45-117); Aspartate Aminotransferase 21 U/L (15-37); Bilirubin Direct < 0.1 mg/dl (0-0.2); Bilirubin,Total 0.4 mg/dl (0.2-1); Magnesium Therapeutic L&D Only 5.5 mg/dL (4.0-8.0); Total Protein 5.1 gm/dl (6.4-8.2)
--- NOTE | 2019-08-07 08:31 | Anesthesiology Progress Note ---
Date of Service August 07, 2019 Anesthesia Post Procedure Vital Signs Vital Signs: Temp Pulse Resp BP Pulse Ox 08/07/19 08:24 86 93 08/07/19 08:19 90 97 08/07/19 08:16 83 166/79 H 08/07/19 08:14 89 96 08/07/19 08:09 89 95 08/07/19 08:04 87 96 08/07/19 08:01 82 166/80 H 08/07/19 07:59 87 94 08/07/19 07:54 82 93 08/07/19 07:49 87 96 08/07/19 07:46 85 161/77 H 08/07/19 07:44 90 94 08/07/19 07:39 88 96 08/07/19 07:34 85 97 08/07/19 07:31 84 163/79 H 08/07/19 07:30 36.5 C 86 16 167/80 H 95 08/07/19 07:29 88 97 08/07/19 07:24 91 H 95 08/07/19 07:19 87 96 08/07/19 07:16 82 162/76 H 08/07/19 07:14 84 97 08/07/19 07:09 90 95 08/07/19 07:04 90 96 08/07/19 07:01 83 166/80 H 08/07/19 06:59 85 96 08/07/19 06:54 86 95 08/07/19 06:49 86 96 08/07/19 06:46 86 170/81 H 08/07/19 06:44 88 97 08/07/19 06:39 83 97 08/07/19 06:34 88 97 08/07/19 06:29 84 97 08/07/19 06:24 90 96 08/07/19 06:19 82 94 08/07/19 06:16 81 151/71 H 08/07/19 06:14 82 94 08/07/19 06:09 83 96 08/07/19 06:04 80 95 08/07/19 06:01 80 18 154/72 H 95 08/07/19 05:59 82 95 08/07/19 05:54 84 95 08/07/19 05:49 82 94 08/07/19 05:46 82 159/69 H 08/07/19 05:44 86 95 08/07/19 05:39 88 95 08/07/19 05:34 81 95 08/07/19 05:31 81 164/77 H 08/07/19 05:29 87 96 08/07/19 05:24 79 95 08/07/19 05:19 81 95 08/07/19 05:16 81 155/69 H 08/07/19 05:14 87 95 08/07/19 05:09 82 95 08/07/19 05:04 83 96 08/07/19 05:01 80 18 155/73 H 96 08/07/19 04:59 81 95 08/07/19 04:54 82 95 08/07/19 04:49 85 94 08/07/19 04:46 82 164/82 H 08/07/19 04:44 81 95 08/07/19 04:39 87 97 08/07/19 04:34 89 97 08/07/19 04:31 85 160/77 H 08/07/19 04:29 82 95 08/07/19 04:24 81 96 08/07/19 04:19 80 94 08/07/19 04:16 82 159/76 H 08/07/19 04:14 81 95 08/07/19 04:09 83 95 08/07/19 04:04 86 95 08/07/19 04:01 82 147/69 H 08/07/19 04:00 18 96 08/07/19 03:59 86 96 08/07/19 03:54 81 95 08/07/19 03:49 86 95 08/07/19 03:46 84 150/71 H 08/07/19 03:44 82 95 08/07/19 03:39 87 96 08/07/19 03:34 84 96 08/07/19 03:31 83 151/72 H 08/07/19 03:29 86 96 08/07/19 03:24 83 95 08/07/19 03:19 82 95 08/07/19 03:16 83 153/72 H 08/07/19 03:14 84 95 08/07/19 03:09 88 96 08/07/19 03:04 82 95 08/07/19 03:01 36.5 C 85 18 152/70 H 96 08/07/19 02:59 84 95 08/07/19 02:54 84 94 08/07/19 02:49 82 95 08/07/19 02:46 82 148/67 H 08/07/19 02:44 85 96 08/07/19 02:39 86 95 08/07/19 02:34 85 95 08/07/19 02:31 85 153/73 H 08/07/19 02:29 84 94 08/07/19 02:24 85 95 08/07/19 02:19 86 96 08/07/19 02:16 82 152/71 H 08/07/19 02:14 87 96 08/07/19 02:09 89 96 08/07/19 02:04 83 95 08/07/19 02:01 86 18 155/76 H 96 08/07/19 01:59 86 96 08/07/19 01:54 83 96 08/07/19 01:49 87 96 08/07/19 01:46 85 143/68 H 08/07/19 01:44 82 96 08/07/19 01:39 85 96 08/07/19 01:34 89 95 08/07/19 01:31 81 159/74 H 08/07/19 01:29 84 95 08/07/19 01:24 84 95 08/07/19 01:19 84 96 08/07/19 01:16 82 161/75 H 08/07/19 01:14 86 96 08/07/19 01:09 84 95 08/07/19 01:04 85 97 08/07/19 01:01 85 20 145/74 H 95 08/07/19 00:59 88 98 08/07/19 00:54 82 96 08/07/19 00:49 87 98 08/07/19 00:46 82 157/76 H 08/07/19 00:44 87 96 08/07/19 00:39 83 96 08/07/19 00:34 82 95 08/07/19 00:31 82 149/70 H 08/07/19 00:29 83 96 08/07/19 00:24 84 95 08/07/19 00:19 85 97 08/07/19 00:16 81 156/70 H 08/07/19 00:14 84 97 08/07/19 00:09 82 96 08/07/19 00:04 85 96 08/07/19 00:01 82 18 162/77 H 96 08/06/19 23:59 84 96 08/06/19 23:54 82 95 08/06/19 23:49 81 96 08/06/19 23:46 81 157/73 H 08/06/19 23:44 83 96 08/06/19 23:39 83 95 08/06/19 23:34 85 95 08/06/19 23:31 78 162/76 H 08/06/19 23:29 83 95 08/06/19 23:24 81 96 08/06/19 23:19 84 97 08/06/19 23:16 82 174/79 H 08/06/19 23:14 83 97 08/06/19 23:09 84 95 08/06/19 23:04 82 96 08/06/19 23:01 36.5 C 78 18 166/74 H 95 08/06/19 22:59 81 96 08/06/19 22:54 78 96 08/06/19 22:49 79 96 08/06/19 22:46 77 169/79 H 08/06/19 22:44 80 95 08/06/19 22:39 85 96 08/06/19 22:34 81 96 08/06/19 22:31 76 153/74 H 08/06/19 22:29 80 95 08/06/19 22:24 82 95 08/06/19 22:19 82 97 08/06/19 22:16 78 166/78 H 08/06/19 22:14 79 96 08/06/19 22:09 83 97 08/06/19 22:04 84 97 08/06/19 22:01 86 18 170/85 H 97 08/06/19 21:59 81 98 08/06/19 21:54 84 97 08/06/19 21:49 85 96 08/06/19 21:46 80 167/79 H 08/06/19 21:44 84 95 08/06/19 21:39 83 97 08/06/19 21:34 85 97 08/06/19 21:31 77 168/83 H 08/06/19 21:29 81 96 08/06/19 21:24 85 95 08/06/19 21:19 81 96 08/06/19 21:16 77 171/83 H 08/06/19 21:14 83 96 08/06/19 21:09 83 97 08/06/19 21:04 80 98 08/06/19 21:01 77 18 177/86 H 98 08/06/19 20:59 81 96 08/06/19 20:54 80 98 08/06/19 20:49 81 97 08/06/19 20:46 82 177/88 H 08/06/19 20:44 81 96 08/06/19 20:39 81 97 08/06/19 20:34 77 97 08/06/19 20:31 78 185/91 H 08/06/19 20:29 81 95 08/06/19 20:24 81 97 08/06/19 20:19 81 97 08/06/19 20:16 78 193/93 H 08/06/19 20:14 80 98 08/06/19 20:09 82 99 08/06/19 20:04 76 97 08/06/19 20:01 75 18 181/82 H 08/06/19 19:59 76 97 08/06/19 19:54 78 97 08/06/19 19:49 71 95 08/06/19 19:46 74 182/86 H 08/06/19 19:44 77 98 08/06/19 19:39 75 98 08/06/19 19:34 78 97 08/06/19 19:31 76 177/83 H 08/06/19 19:29 73 99 08/06/19 19:24 74 98 08/06/19 19:19 76 98 08/06/19 19:14 77 97 08/06/19 19:09 78 97 08/06/19 19:04 77 97 08/06/19 19:01 36.8 C 75 18 171/77 H 97 08/06/19 18:59 78 96 08/06/19 18:54 78 97 08/06/19 18:49 81 97 08/06/19 18:44 79 97 08/06/19 18:39 75 96 08/06/19 18:34 81 97 08/06/19 18:31 78 189/78 H 08/06/19 18:29 83 97 08/06/19 18:24 83 96 08/06/19 18:19 78 97 08/06/19 18:18 76 184/84 H 08/06/19 18:14 82 96 08/06/19 18:09 80 98 08/06/19 18:04 81 97 08/06/19 17:59 80 96 08/06/19 17:58 77 18 187/86 H 97 08/06/19 17:54 81 98 08/06/19 17:49 82 97 08/06/19 17:48 76 178/89 H 08/06/19 17:44 79 97 08/06/19 17:39 81 97 08/06/19 17:38 85 182/89 H 08/06/19 17:34 82 96 08/06/19 17:33 81 93 08/06/19 17:29 79 96 08/06/19 17:28 79 18 171/96 H 96 08/06/19 17:24 79 96 08/06/19 17:19 79 96 08/06/19 17:18 79 176/88 H 08/06/19 17:14 86 97 08/06/19 17:09 81 97 08/06/19 17:08 77 178/88 H 08/06/19 17:04 83 97 08/06/19 16:59 83 97 08/06/19 16:58 81 18 178/88 H 97 08/06/19 16:54 85 96 08/06/19 16:51 81 94 08/06/19 16:49 77 96 08/06/19 16:48 77 18 174/78 H 97 08/06/19 16:44 81 95 08/06/19 16:39 81 95 08/06/19 16:38 82 18 180/83 H 95 08/06/19 16:34 81 96 08/06/19 16:30 77 174/78 H 08/06/19 16:29 77 97 08/06/19 16:24 79 96 08/06/19 16:19 78 145/78 H 96 08/06/19 16:18 81 18 145/78 H 95 08/06/19 16:14 76 96 08/06/19 16:09 75 96 08/06/19 16:08 75 18 184/84 H 95 08/06/19 16:07 80 93 08/06/19 16:04 77 96 08/06/19 15:59 77 97 08/06/19 15:57 75 172/82 H 08/06/19 15:56 36.5 C 75 18 172/82 H 96 08/06/19 15:54 77 96 08/06/19 14:35 87 97 08/06/19 14:33 82 217/100 H 08/06/19 14:32 90 94 08/06/19 14:30 80 98 08/06/19 14:26 84 192/90 H 08/06/19 14:25 80 97 08/06/19 14:21 82 202/96 H 08/06/19 14:20 83 97 08/06/19 14:15 93 H 97 08/06/19 14:11 85 199/95 H 08/06/19 14:10 90 98 08/06/19 14:06 80 212/98 H 08/06/19 14:05 79 98 08/06/19 14:03 83 213/113 H 08/06/19 14:00 94 H 97 08/06/19 13:56 82 215/110 H 08/06/19 13:55 79 99 08/06/19 13:51 76 214/107 H 08/06/19 13:50 82 99 08/06/19 13:46 86 222/116 H 08/06/19 13:45 79 98 08/06/19 13:41 89 227/110 H 08/06/19 13:40 91 H 98 08/06/19 13:36 89 244/128 H 08/06/19 13:35 96 H 99 08/06/19 13:32 105 H 239/136 H 08/06/19 13:30 104 H 98 08/06/19 13:25 85 98 08/06/19 13:21 82 226/120 H 08/06/19 13:20 74 98 08/06/19 13:18 78 233/114 H 08/06/19 13:15 76 99 08/06/19 13:12 75 227/109 H 08/06/19 13:09 36.6 C 75 18 227/109 H 99 08/06/19 13:06 68 216/108 H 08/06/19 13:01 79 212/107 H 08/06/19 12:56 76 219/111 H 08/06/19 12:54 76 225/112 H 08/06/19 12:50 77 218/105 H Pain Intensity Bilateral Lower Abdomen: Pain Intensity: 2 Transfer of Care Handoff Completed per policy Notes Mental Status: alert / awake / arousable Patient Amnestic to Procedure: Yes Nausea / Vomiting: adequately controlled Pain: adequately controlled Airway Patency, RR, SpO2: stable & adequate BP & HR: stable & adequate and see Notes below Hydration State: stable & adequate Anesthetic Complications: no major complications apparent and Pt Satisfied with anesthetic care Notes: The patient is on a magnesium infusion due to HTN.
[2019-08-07] MEDS: LABETALOL HCL 100 MG TAB PO SCH (08:38)
[2019-08-07] MEDS: PRENATAL VITAMIN 1 TAB PO SCH (08:39)
[2019-08-07] MEDS: MAGNESIUM SULFATE / WTR 40 GM/1,000 ML BAG IV SCH ×3 (08:45→10:54)
[2019-08-07] MEDS ORDERED: KETOROLAC 30 MG/ML VIAL IV PRN (09:15)
[2019-08-07] MEDS ORDERED: DiphenhydrAMINE HCL 50 MG/ML VIAL IV PRN (09:15)
[2019-08-07 14:15] LABS: Basophils # (auto) 0.01 K/uL (0-0.2); Basophils % (auto) 0.1 %; Eosinophils # (auto) 0.08 K/uL (0-0.5); Eosinophils % (auto) 0.7 %; Hematocrit (blood only) 33.7 % (37-47); Hemoglobin 11.7 g/dL (12.0-16.0); Immature Granulocytes # (auto) 0.03 K/uL (0.00-0.02); Immature Granulocytes % (auto) 0.3 %; Lymphocytes # (auto) 1.31 K/uL (1.2-3.4); Lymphocytes % (auto) 11.6 %; Mean Corpuscular Hemoglobin 29.1 pg (25-34); Mean Corpuscular Volume 83.8 fL (80-100); Mean Platelet Volume 10.1 fL (7.4-10.4); Monocytes # (auto) 0.34 K/uL (0.11-0.59); Neutrophils # (auto) 9.48 K/uL (1.4-6.5); Neutrophils % (auto) 84.3 %; Platelet Count 179 K/uL (130-400); RDW Coefficient of Variation 14.4 % (11.5-14.5); RDW Standard Deviation 44.7 fL (36.4-46.3); Red Blood Count 4.02 M/uL (4.2-5.4); White Blood Count 11.25 K/uL (4.8-10.8)
[2019-08-07 14:16] LABS: Mean Corpuscular Hgb Conc 34.7 g/dL (32-36)
--- NOTE | 2019-08-07 16:18 | XRay Report ---
XR chest 2V PA/lateral CLINICAL HISTORY: 34 years-old Female presenting with , preeclampsia, cannot get deep tamia th. TECHNIQUE: PA and lateral views of the chest were obtained. COMPARISON: 04/18/2006. FINDINGS: Cardiac silhouette top normal prominence. Patchy central predominant diffuse lung opacities bilateral ly. Interlobular septal thickening is evident. Trace bilateral pleural effusions. No pneumothorax. Os seous structures normal. Upper abdomen normal. IMPRESSION: 1. Moderate to severe pulmonary edema. 2. Trace bilateral pleural effusions. Electronically signed by: Jatinder Cuellar M.D. 08/07/2019 4:17 PM
[2019-08-07] MEDS: IBUPROFEN 600 MG TAB PO PRN ×2 (16:22→20:47)
[2019-08-07] MEDS: OXYCODONE/ACETAMINOPHEN 5mg/325mg TAB PO PRN ×2 (16:23→20:46)
[2019-08-07] MEDS ORDERED: FUROSEMIDE 40 MG in SYRINGE 0 ML IV ONE (17:00)
--- NOTE | 2019-08-07 17:37 | Hospitalist Consultation ---
Date of Consultation August 07, 2019 Assessment & Plan (1) Pulmonary edema: Secondary to fluid overload and severe preeclampsia Ordered 1 dose of Lasix 40 mg IV then started Lasix 20 mg IV twice daily Ordered 2D echo If her condition worsened we will transfer to telemetry (2) Chronic hypertension with superimposed pre-eclampsia: Currently blood pressure is better controlled Systolic blood pressure in the range of 150s to 170s Labetalol was increased to 200 twice daily Continue to monitor blood pressure (3) Diet controlled gestational diabetes mellitus (GDM), antepartum: Can check her hemoglobin A1c and follow-up on her diabetes as an outpatient History of Present Illness Attending Physician: Guillermo Adams Jr, MD, FACOG 34-year-old female with past medical history of hypertension and obesity, she has been on labetalol 100 mg p.o. twice daily, blood pressure is controlled until her . During her she was followed up by her OB, initially blood pressure was controlled until few days ago when her due date became very close. She started having significant fluid overload, when she presented to her OB office she was found to have gained 10 pounds, urine showed + proteinuria, she was admitted to the hospital as her systolic blood pressure was 220/130 prepartum. She went into an urgent secondary to hypertension with superimposed severe preeclampsia. she was placed on magnesium drip 2 g/hour that has completed. Delivery was on 08/06 uneventful but she developed some shortness of breath today ,, Oxygen saturation in the low 90s, primary OB team consulted us for medical Co. CARE. X-ray showed moderate to severe pulmonary edema and trace bilateral pleural effusion. Labetalol dose was increased to 200 mg twice daily. Allergies Allergy/AdvReac Type Severity Reaction Status Date / Time No Known Drug Allergies Allergy Verified 07/30/19 10:00 Home Medications Home Medications Medication Instructions Recorded Confirmed Type PNV cmb#95-ferrous fumarate-FA 1 tab PO DAILY 01/09/19 08/06/19 History [] labetalol 100 mg PO Q12 01/09/19 08/06/19 History aspirin 81 mg tablet,delayed 81 mg PO DAILY 05/06/19 08/06/19 History release acetone (urine) test #50 ea 07/12/19 07/30/19 Rx blood sugar diagnostic #120 ea 07/12/19 07/30/19 Rx lancets 33 gauge #120 ea 07/12/19 07/30/19 Rx Patient History Medical History (Updated 08/07/19 @ 17:59 by Jessica Benitez MD) Depression with anxiety Gestational diabetes History of miscarriage No chronic diseases present No significant past surgical history Obesity affecting , antepartum Secondary polycythemia Surgical History S/P LEEP of cervix S/P wisdom tooth extraction Status post colposcopy Social History Preferred Language: Micronesian Communication Ability: Effective Beliefs That Will Affect Care: None marital status: Current Living Situation: Spouse Other Information That Helps Us Care for You: No Feels Safe at Home: Yes Safety Concerns: Feels Safe At This Time Smoking Status: Former smoker Do You Dip or Chew Tobacco: No ; Second Hand Exposure: No ; Tobacco Cessation Education Requested by Patient: No Hx Alcohol Use: No Hx Substance Use: No Review of Systems Review of Systems: Review of system Constitutional: Generalized weakness and fatigue Eyes: no blurring of vision / no eye pain / no discharge / no redness ENT: no hearing loss / no epistaxis /no swallowing problems Respiratory: no cough / no wheezing /positive positive for shortness of breath/ no hemoptysis Cardiovascular: no Chest pain / no lower extremity edema / no palpitation Abdomen: no pain / no nausea / no vomiting / no constipation Musculoskeletal: no joint pain / no muscle pain / no joint swelling Genitourinary: no dysuria / no incontinence / no urinary retention Neurologic: no focal weakness / no numbness/tingling / no ataxia Psychiatric: no depression symptoms / no anxiety / no insomnia Endocrine: no excessive thirst / no excessive urination Hematologic: no abnormal bleeding / no bruising / no LN swelling Skin: No rash / no pallor Physical Exam Physical Exam: Physical examination General slightly obese, patient appears to be comfortable, not in acute distress HEENT: Atraumatic , normocephalic /no jaundice /no pallor /anicteric /no dry mucous membrane /normal external ear inspection Neck: Supple /no swelling /central trach Heart: S1/S2 normal/regular rate and rhythm/no gallop /no rub /no murmur Lungs: Clear to auscultation bilaterally except for minimal basal Rales/normal chest with expansion/no rhonchi /no wheezing/no use of accessory muscles of respiration Abdomen: Soft/nontender/no guarding/no rebound/no organomegaly/no pulsatile mass Musculoskeletal: No swelling/no edema/no tenderness/normal range of motion Neuro exam: Awake alert oriented 3/cranial nerves II through XII appear to be intact/sensation intact/moves all extremities/no abnormal movements Psychiatric evaluation: No depressed mood/normal affect Skin: No rash on exposed skin area/no erythema Extremity: Normal pulse/no pitting edema/no clubbing or cyanosis Endocrine/lymphatic: No obvious lymphadenopathy /no lymphedema Results & Data Vital Signs (Past 12 Hours) Vital Signs Temp Pulse Resp BP Pulse Ox 08/07/19 17:35 98 H 180/84 H 08/07/19 17:32 99 H 96 08/07/19 17:24 99 H 94 08/07/19 17:22 107 H 93 08/07/19 17:19 101 H 183/85 H 08/07/19 17:18 102 H 94 08/07/19 17:17 105 H 93 08/07/19 17:14 101 H 187/80 H 08/07/19 17:12 105 H 94 08/07/19 17:09 97 H 94 08/07/19 17:08 99 H 183/84 H 08/07/19 17:07 98 H 95 08/07/19 17:05 100 H 183/84 H 08/07/19 17:03 98 H 176/80 H 94 08/07/19 17:02 97 H 21 93 08/07/19 16:58 91 H 94 08/07/19 16:57 98 H 94 08/07/19 16:52 96 H 94 08/07/19 16:47 97 H 94 08/07/19 16:43 100 H 94 08/07/19 16:42 102 H 95 08/07/19 16:41 97 H 175/81 H 08/07/19 16:38 97 H 94 08/07/19 16:37 100 H 93 08/07/19 16:33 107 H 93 08/07/19 16:32 105 H 95 08/07/19 16:27 103 H 95 08/07/19 16:22 100 H 22 94 08/07/19 15:55 107 H 94 08/07/19 15:50 101 H 93 08/07/19 15:46 96 H 155/68 H 08/07/19 15:45 100 H 93 08/07/19 15:40 100 H 91 08/07/19 15:35 98 H 158/64 H 93 08/07/19 15:31 99 H 167/74 H 08/07/19 15:30 100 H 20 93 08/07/19 15:25 99 H 93 08/07/19 15:20 101 H 91 08/07/19 15:16 99 H 165/73 H 08/07/19 15:15 99 H 91 08/07/19 15:10 100 H 90 08/07/19 15:05 37.0 C 102 H 18 95 08/07/19 15:01 100 H 171/77 H 08/07/19 15:00 101 H 90 08/07/19 14:55 99 H 90 08/07/19 14:50 97 H 91 08/07/19 14:46 96 H 161/74 H 08/07/19 14:45 97 H 91 08/07/19 14:40 96 H 90 08/07/19 14:35 97 H 91 08/07/19 14:30 108 H 90 08/07/19 14:24 99 H 91 08/07/19 14:19 103 H 92 08/07/19 14:14 100 H 92 08/07/19 14:13 94 H 88 L 08/07/19 14:09 97 H 92 08/07/19 14:04 92 H 93 08/07/19 14:01 93 H 158/73 H 08/07/19 13:59 96 H 93 08/07/19 13:54 99 H 93 08/07/19 13:49 93 H 93 08/07/19 13:46 92 H 150/72 H 08/07/19 13:44 93 H 93 08/07/19 13:39 93 H 94 08/07/19 13:34 95 H 93 08/07/19 13:31 93 H 161/74 H 08/07/19 13:29 98 H 96 08/07/19 13:24 96 H 93 19 13:19 97 H 94 08/07/19 13:16 97 H 154/70 H 08/07/19 13:14 96 H 94 11/13/19 13:09 92 H 93 08/07/19 13:04 94 H 93 08/07/19 13:01 94 H 152/70 H 08/07/19 12:59 94 H 93 08/07/19 12:54 97 H 93 08/07/19 12:49 94 H 94 08/07/19 12:46 90 158/74 H 08/07/19 12:44 94 H 94 08/07/19 12:39 92 H 95 08/07/19 12:34 96 H 95 08/07/19 12:31 96 H 153/70 H 08/07/19 12:29 97 H 18 96 08/07/19 12:24 98 H 94 08/07/19 12:19 96 H 95 08/07/19 12:16 93 H 155/72 H 08/07/19 12:14 95 H 96 08/07/19 12:09 92 H 96 08/07/19 12:04 93 H 95 08/07/19 12:01 93 H 151/70 H 08/07/19 11:59 96 H 93 08/07/19 11:54 95 H 96 08/07/19 11:49 97 H 96 08/07/19 11:46 91 H 152/71 H 08/07/19 11:44 94 H 94 08/07/19 11:39 94 H 93 08/07/19 11:34 92 H 95 08/07/19 11:31 93 H 151/71 H 08/07/19 11:30 18 97 08/07/19 11:29 94 H 95 08/07/19 11:24 91 H 95 08/07/19 11:19 93 H 92 08/07/19 11:14 96 H 95 08/07/19 11:09 91 H 93 08/07/19 11:04 91 H 18 94 08/07/19 11:02 90 161/70 H 08/07/19 11:01 91 H 166/77 H 08/07/19 10:59 91 H 94 08/07/19 10:54 92 H 94 08/07/19 10:49 92 H 94 08/07/19 10:47 90 180/80 H 19 10:44 94 H 94 19 10:39 89 95 11/13/19 10:34 92 H 98 08/07/19 10:31 91 H 159/78 H 13/19 10:30 18 95 08/07/19 10:29 93 H 96 19 10:24 87 97 08/07/19 10:19 85 93 13/19 10:16 88 145/69 H 08/07/19 10:14 84 93 13/19 10:09 83 93 08/07/19 10:04 82 94 08/07/19 10:01 82 142/69 H 08/07/19 09:59 82 94 13/19 09:54 81 93 08/07/19 09:49 84 95 08/07/19 09:46 83 141/70 H 08/07/19 09:44 87 96 19 09:39 89 95 08/07/19 09:34 86 94 19 09:31 82 143/70 H 19 09:30 16 96 08/07/19 09:29 88 94 19 09:24 89 96 08/07/19 09:19 86 94 19 09:16 85 145/67 H 08/07/19 09:14 90 95 19 09:09 88 95 08/07/19 09:04 86 94 19 09:01 85 154/72 H 19 08:59 86 95 19 08:54 87 95 19 08:49 88 95 19 08:46 85 161/76 H 19 08:44 87 96 19 08:39 89 97 19 08:34 92 H 97 19 08:31 93 H 161/72 H 19 08:30 20 98 19 08:29 88 96 08/07/19 08:24 86 93 19 08:19 90 97 19 08:16 83 166/79 H 08/07/19 08:14 89 96 19 08:09 89 95 19 08:04 87 96 19 08:01 82 166/80 H 08/07/19 07:59 87 94 19 07:54 82 93 08/07/19 07:49 87 96 08/07/19 07:46 85 161/77 H 08/07/19 07:44 90 94 08/07/19 07:39 88 96 08/07/19 07:34 85 97 08/07/19 07:31 84 163/79 H 08/07/19 07:30 36.5 C 86 16 167/80 H 95 08/07/19 07:29 88 97 08/07/19 07:24 91 H 95 08/07/19 07:19 87 96 08/07/19 07:16 82 162/76 H 08/07/19 07:14 84 97 08/07/19 07:09 90 95 08/07/19 07:04 90 96 08/07/19 07:01 83 166/80 H 08/07/19 06:59 85 96 08/07/19 06:54 86 95 08/07/19 06:49 86 96 08/07/19 06:46 86 170/81 H 08/07/19 06:44 88 97 08/07/19 06:39 83 97 08/07/19 06:34 88 97 08/07/19 06:29 84 97 08/07/19 06:24 90 96 08/07/19 06:19 82 94 08/07/19 06:16 81 151/71 H 08/07/19 06:14 82 94 08/07/19 06:09 83 96 08/07/19 06:04 80 95 08/07/19 06:01 80 18 154/72 H 95 08/07/19 05:59 82 95 08/07/19 05:54 84 95 08/07/19 05:49 82 94 08/07/19 05:46 82 159/69 H 08/07/19 05:44 86 95 08/07/19 05:39 88 95 PG Care Time/CCT Total # of Minutes Spent Total Time Spent with Patient: Total time spent is greater than 50% in coordination of care (as documented) at patient's floor/unit and/or counseling patient:
--- NOTE | 2019-08-07 18:53 | Obstetrical Progress Note ---
Date of Service August 07, 2019 Assessment & Plan (1) Pulmonary edema: Consulted medicine and appreciate their input. Recommend lasix that has been very successful IV. Plan 20 mg po bid from now on. Will get echo tomorrow to make sure this is not secondary to a cardiomyopathy. she has already shown improvement. Continue to encourage IS. Present on Admission?: No (2) Chronic hypertension with superimposed pre-eclampsia: Will continue to monitor blood pressures closely. Will increase pm dose to 200mg and see if pressures improve, mostly not severe. Present on Admission?: Yes Subjective Late entry Was called by nursing because of concern about patient not feeling like she could take a deep breath. She was using her incentive spirometer and was noting it was difficult and not making her feel well. She felt that she really had to concentrate to take a deep breath. She noted no CP or specifically feeling sob. Per nursing, patient had clear lungs in the am. When she called complaining of this, she had decreased breath sounds in the bases. Patient had pretty good urine output with at least 200cc per hour. Her pressures have been borderline, and when she is stimulated, they are increased. She notes no other s/s of worsening pet. She has not had a change in her O2 sats and has remained in the mid to low 90s. Patient notes that now that she has received the lasix, she is feeling much better. also likely feeling better because mag is off. she has been up to the BR and voided a large amount. She is ambulating to the bathroom with no problem. Physical Exam Constitutional WD/WN, vitals as above Respiratory normal respiratory effort; no respiratory distress, no labored breathing, no retractions and does not use accessory muscles Auscultation: + diminished lung sounds (on the right more than the left, at the bases) Cardiovascular RRR, no murmur, no edema Gastrointestinal (Abdomen) soft, nt , nd, ff at u Neurologic dtrs +1/2, no clonus Psychiatric A+Ox3, euthymic affect Results & Data Vital Signs (Past 12 Hours) Vital Signs Temp Pulse Resp BP Pulse Ox 08/07/19 18:47 100 H 96 08/07/19 18:44 100 H 167/74 H 08/07/19 18:42 99 H 95 08/07/19 18:37 98 H 95 08/07/19 18:32 98 H 95 08/07/19 18:30 95 H 20 175/81 H 08/07/19 18:27 108 H 92 08/07/19 18:17 100 H 94 08/07/19 18:14 101 H 164/75 H 08/07/19 18:12 100 H 95 08/07/19 18:11 102 H 94 08/07/19 18:09 103 H 171/73 H 08/07/19 18:07 100 H 94 08/07/19 18:05 98 H 94 08/07/19 18:04 97 H 21 169/74 H 08/07/19 18:02 100 H 95 08/07/19 17:59 99 H 176/80 H 94 08/07/19 17:57 101 H 95 08/07/19 17:54 104 H 188/87 H 92 08/07/19 17:52 107 H 94 08/07/19 17:49 104 H 183/82 H 94 08/07/19 17:47 102 H 94 08/07/19 17:44 101 H 179/80 H 08/07/19 17:43 100 H 93 08/07/19 17:42 98 H 94 08/07/19 17:39 99 H 178/76 H 08/07/19 17:37 100 H 21 94 08/07/19 17:35 98 H 180/84 H 08/07/19 17:32 99 H 96 08/07/19 17:24 99 H 94 08/07/19 17:22 107 H 93 08/07/19 17:19 101 H 183/85 H 08/07/19 17:18 102 H 94 08/07/19 17:17 105 H 93 08/07/19 17:14 101 H 187/80 H 08/07/19 17:12 105 H 94 08/07/19 17:09 97 H 94 08/07/19 17:08 99 H 183/84 H 08/07/19 17:07 98 H 95 08/07/19 17:05 100 H 183/84 H 08/07/19 17:03 98 H 176/80 H 94 08/07/19 17:02 97 H 21 93 08/07/19 16:58 91 H 94 08/07/19 16:57 98 H 94 08/07/19 16:52 96 H 94 08/07/19 16:47 97 H 94 08/07/19 16:43 100 H 94 08/07/19 16:42 102 H 95 08/07/19 16:41 97 H 175/81 H 08/07/19 16:38 97 H 94 08/07/19 16:37 100 H 93 08/07/19 16:33 107 H 93 08/07/19 16:32 105 H 95 08/07/19 16:27 103 H 95 08/07/19 16:22 100 H 22 94 08/07/19 15:55 107 H 94 08/07/19 15:50 101 H 93 08/07/19 15:46 96 H 155/68 H 08/07/19 15:45 100 H 93 08/07/19 15:40 100 H 91 08/07/19 15:35 98 H 158/64 H 93 08/07/19 15:31 99 H 167/74 H 08/07/19 15:30 100 H 20 93 08/07/19 15:25 99 H 93 08/07/19 15:20 101 H 91 08/07/19 15:16 99 H 165/73 H 08/07/19 15:15 99 H 91 08/07/19 15:10 100 H 90 08/07/19 15:05 37.0 C 102 H 18 95 08/07/19 15:01 100 H 171/77 H 08/07/19 15:00 101 H 90 08/07/19 14:55 99 H 90 08/07/19 14:50 97 H 91 08/07/19 14:46 96 H 161/74 H 08/07/19 14:45 97 H 91 08/07/19 14:40 96 H 90 08/07/19 14:35 97 H 91 08/07/19 14:30 108 H 20 90 08/07/19 14:24 99 H 91 08/07/19 14:19 103 H 92 08/07/19 14:14 100 H 92 08/07/19 14:13 94 H 88 L 08/07/19 14:09 97 H 92 08/07/19 14:04 92 H 93 08/07/19 14:01 93 H 158/73 H 08/07/19 13:59 96 H 93 08/07/19 13:54 99 H 93 08/07/19 13:49 93 H 93 08/07/19 13:46 92 H 150/72 H 19 13:44 93 H 93 08/07/19 13:39 93 H 94 08/07/19 13:34 95 H 93 08/07/19 13:31 93 H 20 161/74 H 08/07/19 13:29 98 H 96 08/07/19 13:24 96 H 93 08/07/19 13:19 97 H 94 08/07/19 13:16 97 H 154/70 H 08/07/19 13:14 96 H 94 08/07/19 13:09 92 H 93 08/07/19 13:04 94 H 93 08/07/19 13:01 94 H 152/70 H 08/07/19 12:59 94 H 93 08/07/19 12:54 97 H 93 08/07/19 12:49 94 H 94 08/07/19 12:46 90 158/74 H 08/07/19 12:44 94 H 94 08/07/19 12:39 92 H 95 08/07/19 12:34 96 H 95 08/07/19 12:31 96 H 18 153/70 H 08/07/19 12:29 97 H 18 96 08/07/19 12:24 98 H 94 08/07/19 12:19 96 H 95 08/07/19 12:16 93 H 155/72 H 08/07/19 12:14 95 H 96 08/07/19 12:09 92 H 96 08/07/19 12:04 93 H 95 08/07/19 12:01 93 H 151/70 H 08/07/19 11:59 96 H 93 08/07/19 11:54 95 H 96 08/07/19 11:49 97 H 96 08/07/19 11:46 91 H 152/71 H 08/07/19 11:44 94 H 94 08/07/19 11:39 94 H 93 08/07/19 11:34 92 H 95 08/07/19 11:31 93 H 18 151/71 H 08/07/19 11:30 18 97 08/07/19 11:29 94 H 95 08/07/19 11:24 91 H 95 19 11:19 93 H 92 08/07/19 11:14 96 H 95 11/13/19 11:09 91 H 93 08/07/19 11:04 91 H 18 94 08/07/19 11:02 90 161/70 H 08/07/19 11:01 91 H 166/77 H 13/19 10:59 91 H 94 13/19 10:54 92 H 94 13/19 10:49 92 H 94 13/19 10:47 90 180/80 H 13/19 10:44 94 H 94 13/19 10:39 89 95 13/19 10:34 92 H 98 13/19 10:31 91 H 18 159/78 H 13/19 10:30 18 95 13/19 10:29 93 H 96 13/19 10:24 87 97 13/19 10:19 85 93 13/19 10:16 88 145/69 H 08/07/19 10:14 84 93 13/19 10:09 83 93 08/07/19 10:04 82 94 08/07/19 10:01 82 142/69 H 08/07/19 09:59 82 94 08/07/19 09:54 81 93 08/07/19 09:49 84 95 08/07/19 09:46 83 141/70 H 08/07/19 09:44 87 96 08/07/19 09:39 89 95 08/07/19 09:34 86 94 08/07/19 09:31 82 16 143/70 H 08/07/19 09:30 16 96 08/07/19 09:29 88 94 08/07/19 09:24 89 96 08/07/19 09:19 86 94 13/19 09:16 85 145/67 H 08/07/19 09:14 90 95 13/19 09:09 88 95 13/19 09:04 86 94 13/19 09:01 85 154/72 H 08/07/19 08:59 86 95 13/19 08:54 87 95 13/19 08:49 88 95 13/19 08:46 85 161/76 H 13/19 08:44 87 96 13/19 08:39 89 97 13/19 08:34 92 H 97 08/07/19 08:31 93 H 20 161/72 H 08/07/19 08:30 20 98 08/07/19 08:29 88 96 08/07/19 08:24 86 93 08/07/19 08:19 90 97 08/07/19 08:16 83 166/79 H 08/07/19 08:14 89 96 08/07/19 08:09 89 95 08/07/19 08:04 87 96 08/07/19 08:01 82 166/80 H 08/07/19 07:59 87 94 08/07/19 07:54 82 93 08/07/19 07:49 87 96 08/07/19 07:46 85 161/77 H 08/07/19 07:44 90 94 08/07/19 07:39 88 96 08/07/19 07:34 85 97 08/07/19 07:31 84 16 163/79 H 08/07/19 07:30 36.5 C 86 16 167/80 H 95 08/07/19 07:29 88 97 08/07/19 07:24 91 H 95 08/07/19 07:19 87 96 08/07/19 07:16 82 162/76 H 08/07/19 07:14 84 97 08/07/19 07:09 90 95 08/07/19 07:04 90 96 08/07/19 07:01 83 166/80 H 08/07/19 06:59 85 96 08/07/19 06:54 86 95
[2019-08-07] MEDS ORDERED: LABETALOL HCL 100 MG TAB PO ONE (20:31)
[2019-08-07] MEDS: MAGNESIUM HYDROXIDE SUSP 30 ML UDC PO SCH (20:42)
[2019-08-07] MEDS: SENNA 8.6 MG TAB PO SCH (20:42)
[2019-08-07] MEDS ORDERED: LABETALOL HCL 200 MG TAB PO SCH (21:00)
--- NOTE | 2019-08-07 21:06 | Communication Note ---
Date of Service: August 07, 2019 Patient continues to feel much better. Got her dose of [id number] a bit early as pressures creeping up. Still elevated so giving her 100mg more. D/w hospitalist, if still elevated, would recommend iv hydralazine. Will recheck BP in one hour. Has had excellent response to lasix and will continue tomorrow.
[2019-08-08] MEDS: IBUPROFEN 600 MG TAB PO PRN ×2 (00:37→04:00)
--- NOTE | 2019-08-08 01:05 | Communication Note ---
Date of Service: August 08, 2019 Last few pressures have been much better. O2 saturations are good. Plan to transfer to floor in the am. Plan labetolol 300mg bid for tomorrow and lasix 20 mg bid.
[2019-08-08] MEDS: OXYCODONE/ACETAMINOPHEN 5mg/325mg TAB PO PRN ×4 (04:01→20:52)
[2019-08-08] MEDS ORDERED: HydrALAZINE HCL 20 MG/ML VIAL IV STA (04:15)
--- NOTE | 2019-08-08 04:21 | Obstetrical Progress Note ---
Date of Service August 08, 2019 Assessment & Plan (1) Pulmonary edema: Lung sounds continue to improved, continues to have excellent urine output. (2) Chronic hypertension with superimposed pre-eclampsia: Pressures continue to be labile. Will treat with hydralazine as per hospitalist recommendation upon earlier discussion. If does not improve, will call them again. Will check labs but no evidence that her pet is worsening other then her blood pressure issues. Overall still better than when she was admitted. Subjective Patient was able to get some rest. Then awoken for blood pressure. Had to go to the BR really bad. Voided 600cc. Noted after cramping after going to the BR. Waited at least 10 min prior to taking blood pressure, seated, and was 199/93, repeat in opposite arm 183/84. Patient notes that she otherwise feels well. No chest pain, no sob Physical Exam Constitutional: WD/WN, vitals as above Respiratory: normal respiratory effort; no respiratory distress and no labored breathing Auscultation: + diminished lung sounds (although improved from exam previously) and + crackles (left lung base) Psychiatric: A+Ox3, euthymic affect Results & Data Vital Signs (Past 12 Hours) Vital Signs Temp Pulse Resp BP Pulse Ox Pulse Ox 08/08/19 04:18 106 H 94 08/08/19 04:14 95 H 95 08/08/19 04:09 94 H 95 08/08/19 04:05 90 183/84 H 08/08/19 04:04 96 H 199/93 H 97 08/08/19 04:01 98 H 94 08/08/19 03:59 94 H 96 08/08/19 03:47 96 H 96 08/08/19 03:43 85 94 08/08/19 03:42 90 95 08/08/19 03:37 95 H 96 08/08/19 03:32 91 H 95 08/08/19 03:27 97 H 93 08/08/19 03:22 92 H 95 08/08/19 03:17 91 H 96 08/08/19 03:12 93 H 95 08/08/19 03:07 94 H 96 08/08/19 03:02 93 H 94 08/08/19 03:01 90 94 08/08/19 02:57 90 95 08/08/19 02:54 93 H 94 08/08/19 02:52 90 95 08/08/19 02:47 92 H 95 08/08/19 02:42 90 95 08/08/19 02:37 100 H 94 08/08/19 02:32 91 H 94 08/08/19 02:27 86 95 08/08/19 02:24 92 H 94 08/08/19 02:22 90 95 08/08/19 02:19 89 94 08/08/19 02:17 90 95 08/08/19 02:12 89 94 08/08/19 02:07 95 H 94 08/08/19 02:06 95 H 94 08/08/19 02:02 93 H 95 08/08/19 02:00 95 H 94 08/08/19 01:57 97 H 92 08/08/19 01:55 90 94 08/08/19 01:52 92 H 95 08/08/19 01:48 91 H 94 08/08/19 01:47 94 H 93 08/08/19 01:43 95 H 94 08/08/19 01:42 93 H 94 08/08/19 01:38 104 H 93 08/08/19 01:37 105 H 94 08/08/19 01:29 102 H 92 08/08/19 01:28 100 H 94 08/08/19 01:24 101 H 92 08/08/19 01:21 95 H 94 08/08/19 01:19 96 H 95 08/08/19 01:16 95 H 94 08/08/19 01:14 98 H 95 08/08/19 01:10 98 H 92 08/08/19 01:09 105 H 96 08/08/19 01:04 98 H 95 08/08/19 00:59 102 H 96 08/08/19 00:54 102 H 94 08/08/19 00:52 101 H 94 08/08/19 00:49 100 H 96 08/08/19 00:47 100 H 91 08/08/19 00:44 99 H 95 08/08/19 00:42 104 H 94 08/08/19 00:39 97 H 96 08/08/19 00:36 91 H 152/71 H 08/08/19 00:34 94 H 96 08/08/19 00:29 97 H 95 08/08/19 00:24 91 H 94 08/08/19 00:23 99 H 94 08/08/19 00:19 93 H 95 08/08/19 00:18 92 H 94 08/08/19 00:14 94 H 97 08/08/19 00:12 94 H 94 08/08/19 00:09 93 H 95 08/08/19 00:06 94 H 93 08/08/19 00:04 100 H 95 08/07/19 23:59 95 H 92 08/07/19 23:54 97 H 97 08/07/19 23:53 96 H 94 08/07/19 23:49 94 H 95 08/07/19 23:44 93 H 96 08/07/19 23:39 90 96 08/07/19 23:36 37.2 C 92 H 18 142/67 H 08/07/19 23:34 95 H 96 08/07/19 23:20 95 H 94 08/07/19 23:15 96 H 95 08/07/19 23:10 95 H 95 08/07/19 23:05 97 H 95 08/07/19 23:00 98 H 95 08/07/19 22:55 96 H 95 08/07/19 22:54 96 H 93 08/07/19 22:50 99 H 93 08/07/19 22:47 99 H 94 08/07/19 22:46 96 H 132/61 08/07/19 22:45 96 H 94 08/07/19 22:42 95 H 94 08/07/19 22:40 98 H 94 08/07/19 22:37 98 H 94 08/07/19 22:35 98 H 94 08/07/19 22:32 95 H 94 08/07/19 22:30 99 H 95 08/07/19 22:26 99 H 94 08/07/19 22:25 97 H 94 08/07/19 22:21 95 H 94 08/07/19 22:20 98 H 95 08/07/19 22:16 95 H 94 08/07/19 22:15 97 H 94 08/07/19 22:11 100 H 94 08/07/19 22:10 99 H 96 08/07/19 22:05 100 H 94 08/07/19 22:00 100 H 94 08/07/19 21:55 101 H 94 08/07/19 21:50 100 H 94 11/13/19 21:46 96 H 144/67 H 19 21:45 100 H 94 19 21:43 98 H 94 19 21:40 102 H 96 19 21:37 100 H 94 19 21:35 97 H 95 19 21:32 102 H 94 19 21:30 99 H 96 19 21:26 98 H 94 19 21:25 101 H 94 19 21:21 99 H 94 19 21:20 98 H 95 19 21:15 100 H 96 19 21:10 98 H 96 19 21:05 105 H 96 19 20:48 102 H 93 19 20:45 100 H 96 19 20:44 101 H 181/82 H 19 20:40 99 H 96 19 20:35 98 H 95 19 20:30 101 H 96 19 20:29 98 H 170/77 H 19 20:25 97 H 96 19 20:23 99 H 94 19 20:20 99 H 96 19 20:15 101 H 96 19 20:14 100 H 171/77 H 19 20:10 100 H 95 19 20:05 102 H 95 19 20:04 100 H 94 19 20:00 100 H 95 19 19:59 99 H 167/74 H 19 19:55 100 H 96 19 19:52 104 H 94 19 19:50 106 H 95 19 19:47 96 H 94 19 19:45 94 H 96 19 19:44 97 H 167/76 H 19 19:41 99 H 94 19 19:40 100 H 96 19 19:30 37.0 C 19 95 95 19 19:29 95 H 191/84 H 19 19:27 97 H 96 11/13/19 19:23 94 H 94 08/07/19 19:22 98 H 94 08/07/19 19:20 101 H 173/79 H 08/07/19 19:17 97 H 96 08/07/19 19:14 98 H 167/79 H 08/07/19 19:12 102 H 95 08/07/19 19:07 97 H 95 08/07/19 19:06 97 H 94 08/07/19 19:02 97 H 21 95 08/07/19 18:59 102 H 173/79 H 08/07/19 18:57 104 H 94 08/07/19 18:54 99 H 94 08/07/19 18:52 101 H 95 08/07/19 18:49 99 H 94 08/07/19 18:47 100 H 96 08/07/19 18:44 100 H 167/74 H 08/07/19 18:42 99 H 95 08/07/19 18:37 98 H 95 08/07/19 18:32 98 H 95 08/07/19 18:30 95 H 20 175/81 H 08/07/19 18:27 108 H 92 08/07/19 18:17 100 H 94 08/07/19 18:14 101 H 164/75 H 08/07/19 18:12 100 H 95 08/07/19 18:11 102 H 94 08/07/19 18:09 103 H 171/73 H 08/07/19 18:07 100 H 94 08/07/19 18:05 98 H 94 08/07/19 18:04 97 H 21 169/74 H 08/07/19 18:02 100 H 95 08/07/19 17:59 99 H 176/80 H 94 08/07/19 17:57 101 H 95 08/07/19 17:54 104 H 188/87 H 92 08/07/19 17:52 107 H 94 08/07/19 17:49 104 H 183/82 H 94 08/07/19 17:47 102 H 94 08/07/19 17:44 101 H 179/80 H 08/07/19 17:43 100 H 93 08/07/19 17:42 98 H 94 08/07/19 17:39 99 H 178/76 H 08/07/19 17:37 100 H 21 94 08/07/19 17:35 98 H 180/84 H 08/07/19 17:32 99 H 96 08/07/19 17:24 99 H 94 08/07/19 17:22 107 H 93 08/07/19 17:19 101 H 183/85 H 08/07/19 17:18 102 H 94 08/07/19 17:17 105 H 93 08/07/19 17:14 101 H 187/80 H 08/07/19 17:12 105 H 94 08/07/19 17:09 97 H 94 08/07/19 17:08 99 H 183/84 H 08/07/19 17:07 98 H 95 08/07/19 17:05 100 H 183/84 H 08/07/19 17:03 98 H 176/80 H 94 08/07/19 17:02 97 H 21 93 08/07/19 16:58 91 H 94 08/07/19 16:57 98 H 94 08/07/19 16:52 96 H 94 08/07/19 16:47 97 H 94 08/07/19 16:43 100 H 94 08/07/19 16:42 102 H 95 08/07/19 16:41 97 H 175/81 H 08/07/19 16:38 97 H 94 08/07/19 16:37 100 H 93 08/07/19 16:33 107 H 93 08/07/19 16:32 105 H 95 08/07/19 16:27 103 H 95 08/07/19 16:22 100 H 22 94 PG Care Time/CCT Total # of Minutes Spent Total Time Spent with Patient: Total time spent is greater than 50% in coordination of care (as documented) at patient's floor/unit and/or counseling patient:
[2019-08-08] MEDS ORDERED: HydrALAZINE HCL 20 MG/ML VIAL IV ONE (04:52)
[2019-08-08 05:08] LABS: Basophils # (auto) 0.01 K/uL (0-0.2); Basophils % (auto) 0.1 %; Eosinophils # (auto) 0.16 K/uL (0-0.5); Eosinophils % (auto) 1.4 %; Hematocrit (blood only) 33.9 % (37-47); Hemoglobin 11.4 g/dL (12.0-16.0); Immature Granulocytes # (auto) 0.02 K/uL (0.00-0.02); Immature Granulocytes % (auto) 0.2 %; Lymphocytes # (auto) 1.79 K/uL (1.2-3.4); Lymphocytes % (auto) 15.4 %; Mean Corpuscular Hemoglobin 28.7 pg (25-34); Mean Corpuscular Hgb Conc 33.6 g/dL (32-36); Mean Corpuscular Volume 85.4 fL (80-100); Mean Platelet Volume 10.3 fL (7.4-10.4); Monocytes # (auto) 0.47 K/uL (0.11-0.59); Neutrophils # (auto) 9.17 K/uL (1.4-6.5); Neutrophils % (auto) 78.9 %; Platelet Count 188 K/uL (130-400); RDW Coefficient of Variation 14.8 % (11.5-14.5); RDW Standard Deviation 46.1 fL (36.4-46.3); Red Blood Count 3.97 M/uL (4.2-5.4); White Blood Count 11.62 K/uL (4.8-10.8)
[2019-08-08] MEDS ORDERED: LABETALOL HCL IV 5 MG/ML 20ML IV STA (05:17)
[2019-08-08] MEDS ORDERED: LABETALOL HCL IV 5 MG/ML 20ML IV ONE (05:18)
[2019-08-08 05:26] LABS: BUN Creatinine Ratio 10.8 (10-20); Calcium 7.9 mg/dl (8.5-10.1); Creatinine Clr Calc Pharmacy 111.9 ml/min; Est GFR (African American) 92.8; Est GFR (Non-African American) 80.1; Potassium 3.4 mmol/L (3.5-5.1)
--- NOTE | 2019-08-08 05:26 | Communication Note ---
Date of Service: August 08, 2019 Patient had essentially no response to the hydralazine. She got up to go to the bathroom, felt nauseated, threw up, voided and per her report had sob she attributes to a anxiety attack. Patient is now back in bed and feeling somewhat better. BP still running 180-190/80s. sat 98% room air. Discussed case with Dr. Bolaños who is now covering for the hospitalist group. He recommends she now be treated with labetolol 10 mg iv. Labs redrawn and cbc is nl. If she does not have some kind of response to this, I have concern for us being able to continue to monitor her here on labor and delivery. He notes if she does not have a response to this, will probably need to transfer to ICU. Will continue to closely monitor the situation.
[2019-08-08 05:29] LABS: Albumin Globulin Ratio 0.6 (0.9-2); Bilirubin,Total 0.3 mg/dl (0.2-1); Globulin 3.4 gm/dl (2.5-4.0); Total Protein 5.4 gm/dl (6.4-8.2)
--- NOTE | 2019-08-08 05:44 | Communication Note ---
Date of Service: August 08, 2019 Dr. Bolaños reviewed her records, course and xray. He called and noted he would come up to visit her. He evaluated her and feels it would be in the patient's best interest to be transferred to the ICU for further evaluation, monitoring, possible iv blood pressure meds, etc. He will be arranging that transfer, talking to the ICU docs and writing her transfer orders. Patient expresses understanding of situation and course.
[2019-08-08] MEDS ORDERED: FUROSEMIDE 40 MG in SYRINGE 0 ML IV ONE (05:56)
--- NOTE | 2019-08-08 06:09 | Communication Note ---
Date of Service: August 08, [address] Bolaños of continued elevated blood pressures. Plan is for her to go to the CT scan for chest ct/r/o pe and then be transferred to the ICU. No orders for BP meds given. Explained the situation to the patient who expresses understanding.
[2019-08-08] MEDS ORDERED: OPTIRAY 320 125ml IV PRN (06:25)
[2019-08-08] MEDS ORDERED: ICU PROTOCOL FOR HYPERGLYCEMIA PRN (06:39)
[2019-08-08] MEDS ORDERED: POTASSIUM CHLORIDE 20 MEQ TABCR PO STA (06:49)
--- NOTE | 2019-08-08 06:53 | CT Scan Report ---
CT ANGIOGRAM OF THE CHEST CLINICAL HISTORY: Chest pain. Shortness of breath. Recent status. Evaluate for pulmonary e mbolism. COMPARISON STUDY: No previous studies for comparison. TECHNIQUE: Following the IV administration of 92 mL of Optiray-320, CT angiogram of the thorax was pe rformed from the thoracic inlet to the lung bases utilizing the pulmonary embolus protocol. Images ar e reviewed in the axial, sagittal, and coronal planes. IV contrast was administered without complicat ion. MIP imaging was performed. A dose lowering technique was utilized adhering to the principles of ALARA. CT DOSE: 740.95 mGy.cm FINDINGS: No pathologically enlarged axillary mediastinal or hilar lymph nodes were visualized. There was no evidence of thoracic aortic dilatation. There were no pulmonary artery filling defects to indicate acute pulmonary embolism. There are small bilateral pleural effusions. There is subpleural septal edema. There are patchy bilateral alveolar opacities, likely representing pulmonary edema. A multifocal infectious/inflammatory processes could appear similar but is statistic ally less likely. IMPRESSION: 1. No evidence of acute pulmonary embolism 2. Small bilateral pleural effusions, subpleural septal edema, and multifocal bilateral groundglass a lveolar opacities. The findings are consistent with pulmonary edema. Clinical and imaging follow-up i s recommended. Electronically signed by: Samir Mora M.D. 08/08/2019 6:52 AM
[2019-08-08 06:54] LABS: Magnesium 3.1 mg/dl (1.8-2.4)
[2019-08-08 06:54] LABS: Base Excess VBG -2.3 mEq/L; Oxygen Saturation VBG 68.8 %; pH VBG 7.44 (7.36-7.41)
--- NOTE | 2019-08-08 06:57 | XRay Report ---
XR chest 1V portable CLINICAL HISTORY: pulm edema COMPARISON STUDY: 08/07/2019 FINDINGS: The cardiac and mediastinal contours remain stable. There is persistent but improving pulmo nary edema. There is no lobar consolidation.[ IMPRESSION: Improving pulmonary edema pattern Electronically signed by: Samir Mora M.D. 08/08/2019 6:56 AM
[2019-08-08 07:10] LABS: Appearance Urine Clear (Clear); Bilirubin Urine Negative (Negative); Blood Urine Negative (Negative); Color Urine Yellow; Glucose Urine UA Negative (Negative); Ketones Urine Negative (Negative); Leukocyte Esterase Urine Negative (Negative); Nitrite Urine Negative (Negative); Protein Urine Negative (Negative); Specific Gravity Urine 1.014 (1.000-1.030); Urobilinogen Urine Negative (Negative); pH Urine 7.5 (4.5-7.5)
[2019-08-08 07:25] LABS: Troponin I < 0.015 ng/ml (0-0.045)
[2019-08-08] MEDS ORDERED: LABETALOL HCL 200 MG TAB PO ONE (07:35)
--- NOTE | 2019-08-08 07:43 | Critical Care Consultation ---
Date of Consultation August 08, 2019 Assessment & Plan (1) Maternal admission to intensive care unit: Reason Critically Ill: Belkis Munoz is a 34 y/o female post-op day #2 from of baby girl. She presented for pulmonary edema and elevated BPs needing more intensive monitoring and management. Neuro Alert and oriented x3 Anxious appearance Will re-order Percocet for post-op pain Cardiac/Vascular Prior to transfer was having systolic levels in 190s * Review of records show she received Labetalol 100mg PO q12 starting 11 8pm, receiving 2 doses; then received a total of Labetalol 300mg PO 8pm 08/07; she did receive Hydralazine 10mg IV x1 dose approx 4am; and another 5mg IV dose x1 approx 4:52am. She received Lasix 40mg approx 5pm 08/07. Was on Nicardipine drip this AM started by overnight team Will wean from drip and give Labetalol 200mg PO this AM; during morning multidisciplinary rounds she was off of Nicardipine drip. Hydralazine 10mg q2H PRN for systolic >160 Monitor hemodynamics; currently tachycardiac in 100-110. BP is improving here in ICU, currently 140s/80s. Echocardiogram Trans thoracic performed this AM - pending interpretation. Pulm: Admitted for Pulmonary Edema CTA was negative for PE and showing Pulmonary Edema CXR repeat this AM showed improving Pulmoanry Edema with good urine output from Lasix. Was given Lasix 40mg this AM by overnight team Currently on NC 2L O2. Subjectively reports improvement with significant urine output GI: No RUQ pain reported LFTs WNL Ordered LDH level which was elevated at 304 Will restart OB diet Renal/Lytes: In setting of aggressive diuresis with lasix will get ahead of electrolyte abnormalities with KCl 40meq PO TID Potassium was slightly low at 3.4; Na was WNL Trend Lytes and Renal function Mag was elevated 3.1 after receiving mag drip for pre-eclampsia Creatinine WNL this AM 0.92 Reported to have urine output of 4300cc at time of multidisciplinary rounds at approx 9:30am; cumulative balance of -[id number] : Aranda placed this AM to monitor I&O No proteinuria in UA this AM Endo: ICU hyperglycemic protocol reported hx of gestational diabetes diet controlled Heme: Hgb 11.4 this AM WBC 11.6 in setting of post-op day 2 from Uric Acid level WNL ID: No current concerns for infection, afebrile reported to have received Ancef 3gm pre-op for OB Care: Continue routine OB post- care; consulted, encourage breast feeding; HTN meds reviewed with pharmacist during interdisciplinary rounds and okay to breastfeed Lines: peripheral IVs DVT ppx: None currently (2) Chronic hypertension with superimposed pre-eclampsia: (3) Pulmonary edema: (4) Diet controlled gestational diabetes mellitus (GDM), antepartum: (5) Depression with anxiety: Supervising Physician Co-Signing Physician Notes Patient seen and examined. Discussed with GENNARO and family practice resident at bedside as well as ICU nurse. History obtained by review the EMR and discussion with the patient at bedside as well. Briefly the patient is a 34-year-old G2, P1 admitted to the hospital August 06. Her EDC was 07 September. She was noted to have gestational diabetes and had hypertension. She been on labetalol daily. She was markedly hypertensive assessment of a routine stress test which prompted admission and treatment for potential eclampsia. She underwent urgent on August 06. Baby is doing well. Postoperatively the patient developed increasing oxygen requirement and hospitalist consultation was obtained yesterday. They recommended diuresis and more aggressive blood pressure control. Early this morning the patient's blood pressure remained markedly elevated despite doses of labetalol and the patient was transferred to the ICU. I assessed her on arrival. She was tachycardic and hypertensive but her oxygenation was improved. Her chest x-ray from yesterday showed diffuse pulmonary infiltrates which had improved with diuresis based on x-ray today. She was oxygenating well and not in any respiratory distress. She not had any seizure activity. A follow-up urinalysis demonstrated no significant proteinuria. Her uric acid had been normal. Impression: 34-year-old female with essential hypertension aggravated by and preeclampsia with gestational diabetes with postoperative hypoxemic respiratory failure and significant hypertension. Recommendations: 1. Preeclampsia: Recheck uric acid and LDH as well as urinalysis for urine protein. The patient had received magnesium but this appears to be much better and will hold additional magnesium unless those markers come back persistently elevated. 2. Acute hypoxemic respiratory failure: Suspect pulmonary edema although aspiration may have fevers her white count is elevated which may be seen in postdelivery settings. Check procalcitonin and BNP. Echocardiogram is pending. She has diuresed profoundly and will hold additional diuretics at this time. Will need aggressive electrolyte replacement. Echocardiogram is pending as cardiomyopathy and valvular dysfunction would be on the differential. She does have what appears to be a flow murmur on exam. 3. Severe hypertension: The patient is been initiated on Cardene. We will continue labetalol and hydralazine and try to wean off the Cardene. 4. : Per FOREIGN EXCHANGE POSITION CLERK We will monitor in the ICU for now pending stabilization. History of Present Illness Reason for Consultation: Pulmonary Edema; Uncontrolled HTN Requesting Physician: Dr. Fritz Attending Physician: Guillermo Adams Jr, MD, FACOG History of Present Illness Belkis Munoz is a 34 y/o female post-op day #2 from of baby girl with complicated by diet controlled gestational DM and chronic HTN. She presented to ICU for pulmonary edema and elevated BPs needing more intensive monitoring and management. She notes she was having difficulty taking a deep breath and required supplemental NC. She was being treated with Labetalol and Hydralazine on maternity floor with continued elevated BPs of systolic values in 190s. She reported to have nausea and vomiting x1 overnight which patient attributed to having a panic attack as she has had similar symptoms in the past of same. She notes she is anxious currently without nausea or more episodes of vomiting. She notes her dyspnea has improved. She denies headaches, blurred vision, RUQ pain, chest pain. She notes mild abdominal pain but only related to her surgical incision sites. Allergies Allergy/AdvReac Type Severity Reaction Status Date / Time No Known Drug Allergies Allergy Verified 07/30/19 10:00 Home Medications Home Medications Medication Instructions Recorded Confirmed Type PNV cmb#95-ferrous fumarate-FA 1 tab PO DAILY 01/09/19 08/06/19 History [] labetalol 100 mg PO Q12 01/09/19 08/06/19 History aspirin 81 mg tablet,delayed 81 mg PO DAILY 05/06/19 08/06/19 History release acetone (urine) test #50 ea 07/12/19 07/30/19 Rx blood sugar diagnostic #120 ea 07/12/19 07/30/19 Rx lancets 33 gauge #120 ea 07/12/19 07/30/19 Rx Patient History Medical History (Updated 08/08/19 @ 09:10 by Girish Lemon DO) Depression with anxiety Gestational diabetes History of miscarriage No chronic diseases present No significant past surgical history Obesity affecting , antepartum Secondary polycythemia Surgical History S/P LEEP of cervix S/P wisdom tooth extraction Status post colposcopy Social History Preferred Language: Hungarian Communication Ability: Effective Lotteries Agent Required: No Beliefs That Will Affect Care: None marital status: Current Living Situation: Spouse Other Information That Helps Us Care for You: No Feels Safe at Home: Yes Safety Concerns: Feels Safe At This Time Smoking Status: Never smoker Do You Dip or Chew Tobacco: No ; Second Hand Exposure: No ; Tobacco Cessation Education Requested by Patient: No Hx Alcohol Use: No Hx Substance Use: No Review of Systems Review of Systems: All systems reviewed & are unremarkable except as noted in HPI & below Constitutional: no fever and no chills Eyes: no diplopia and no eye pain Ear, Nose, Mouth, Throat: no epistaxis and no hoarseness Respiratory: + dyspnea; no hemoptysis Cardiovascular: no chest pain and no syncope Gastrointestinal: + abdominal pain (lower over incision site from recent C- section; no RUQ pain); no nausea and no vomiting Genitourinary: no dysuria and no hematuria Integumentary: + pruritus; no rash Neurologic: no localized weakness, no numbness and no headache(s) Psychiatric: + anxiety Physical Exam Constitutional: + acute distress and cooperative Eyes: PERRL and EOM intact bilaterally ENMT: external ear and nose normal, oropharynx normal Neck: normal visual inspection and trachea midline Respiratory: + tachypneic Auscultation: + crackles (bases bilaterally) Cardiovascular: Rate/Rhythm: regular rhythm and + tachycardic Extremities: + edema (lower extremity bilaterally); no calf tenderness Gastrointestinal (Abdomen): Percussion/Palpation: abdomen soft; no guarding dressing over loewr abdominal surgical incision site was intact, dry, clean. Musculoskeletal: Head/Neck/Chest: normocephalic and head atraumatic Skin: no rashes, warm and dry Neurologic: moves all extremities and awake Cranial Nerves: EOM intact bilaterally Psychiatric: Orientation: alert, oriented x 3 and cooperative Affect: + anxious affect Results & Data Vital Signs (Past 12 Hours) Vital Signs Temp Pulse Pulse Resp BP BP Pulse Ox 08/08/19 07:00 116 H 18 187/95 H 95 08/08/19 06:20 36.6 C 18 205/122 H 97 08/08/19 05:53 112 H 196/87 H 08/08/19 05:51 114 H 97 08/08/19 05:49 112 H 203/89 H 08/08/19 05:46 110 H 192/87 H 97 08/08/19 05:43 110 H 187/85 H 08/08/19 05:41 112 H 97 08/08/19 05:40 109 H 188/84 H 08/08/19 05:37 110 H 182/81 H 08/08/19 05:36 109 H 96 08/08/19 05:34 104 H 172/79 H 08/08/19 05:31 103 H 171/77 H 96 08/08/19 05:29 102 H 171/78 H 08/08/19 05:26 105 H 96 08/08/19 05:21 110 H 97 08/08/19 05:16 125 H 96 08/08/19 05:06 117 H 196/88 H 08/08/19 05:04 114 H 98 08/08/19 05:02 109 H 189/84 H 08/08/19 04:59 110 H 96 08/08/19 04:54 105 H 97 08/08/19 04:51 102 H 182/81 H 08/08/19 04:49 101 H 96 08/08/19 04:46 102 H 180/79 H 08/08/19 04:44 101 H 96 08/08/19 04:41 100 H 171/76 H 08/08/19 04:39 100 H 96 08/08/19 04:36 100 H 171/77 H 08/08/19 04:34 102 H 96 08/08/19 04:31 96 H 172/78 H 08/08/19 04:29 96 H 95 08/08/19 04:24 96 H 94 08/08/19 04:23 96 H 94 08/08/19 04:21 96 H 168/75 H 11/14/19 04:19 107 H 93 08/08/19 04:18 106 H 94 08/08/19 04:14 95 H 95 08/08/19 04:09 94 H 95 08/08/19 04:05 90 183/84 H 08/08/19 04:04 96 H 199/93 H 97 08/08/19 04:01 98 H 94 08/08/19 04:00 37.0 C 20 08/08/19 03:59 94 H 96 08/08/19 03:47 96 H 96 08/08/19 03:43 85 94 08/08/19 03:42 90 95 08/08/19 03:37 95 H 96 08/08/19 03:32 91 H 95 08/08/19 03:27 97 H 93 08/08/19 03:22 92 H 95 08/08/19 03:17 91 H 96 08/08/19 03:12 93 H 95 08/08/19 03:07 94 H 96 08/08/19 03:02 93 H 94 08/08/19 03:01 90 94 08/08/19 02:57 90 95 08/08/19 02:54 93 H 94 08/08/19 02:52 90 95 08/08/19 02:47 92 H 95 08/08/19 02:42 90 95 08/08/19 02:37 100 H 94 08/08/19 02:32 91 H 94 08/08/19 02:27 86 95 08/08/19 02:24 92 H 94 08/08/19 02:22 90 95 08/08/19 02:19 89 94 08/08/19 02:17 90 95 08/08/19 02:12 89 94 08/08/19 02:07 95 H 94 08/08/19 02:06 95 H 94 08/08/19 02:02 93 H 95 08/08/19 02:00 95 H 94 08/08/19 01:57 97 H 92 08/08/19 01:55 90 94 08/08/19 01:52 92 H 95 08/08/19 01:48 91 H 94 08/08/19 01:47 94 H 93 08/08/19 01:43 95 H 94 08/08/19 01:42 93 H 94 08/08/19 01:38 104 H 93 08/08/19 01:37 105 H 94 08/08/19 01:29 102 H 92 08/08/19 01:28 100 H 94 08/08/19 01:24 101 H 92 08/08/19 01:21 95 H 94 08/08/19 01:19 96 H 95 08/08/19 01:16 95 H 94 08/08/19 01:14 98 H 95 08/08/19 01:10 98 H 92 08/08/19 01:09 105 H 96 08/08/19 01:04 98 H 95 08/08/19 00:59 102 H 96 08/08/19 00:54 102 H 94 08/08/19 00:52 101 H 94 08/08/19 00:49 100 H 96 08/08/19 00:47 100 H 91 08/08/19 00:44 99 H 95 08/08/19 00:42 104 H 94 08/08/19 00:39 97 H 96 08/08/19 00:36 91 H 152/71 H 08/08/19 00:34 94 H 96 08/08/19 00:29 97 H 95 08/08/19 00:24 91 H 94 08/08/19 00:23 99 H 94 08/08/19 00:19 93 H 95 08/08/19 00:18 92 H 94 08/08/19 00:14 94 H 97 08/08/19 00:12 94 H 94 08/08/19 00:09 93 H 95 08/08/19 00:06 94 H 93 08/08/19 00:04 100 H 95 08/07/19 23:59 95 H 92 08/07/19 23:54 97 H 97 08/07/19 23:53 96 H 94 08/07/19 23:49 94 H 95 08/07/19 23:44 93 H 96 08/07/19 23:39 90 96 08/07/19 23:36 37.2 C 92 H 18 142/67 H 08/07/19 23:34 95 H 96 08/07/19 23:20 95 H 94 08/07/19 23:15 96 H 95 08/07/19 23:10 95 H 95 08/07/19 23:05 97 H 95 08/07/19 23:00 98 H 95 08/07/19 22:55 96 H 95 08/07/19 22:54 96 H 93 08/07/19 22:50 99 H 93 08/07/19 22:47 99 H 94 08/07/19 22:46 96 H 132/61 08/07/19 22:45 96 H 94 08/07/19 22:42 95 H 94 08/07/19 22:40 98 H 94 08/07/19 22:37 98 H 94 08/07/19 22:35 98 H 94 08/07/19 22:32 95 H 94 08/07/19 22:30 99 H 95 08/07/19 22:26 99 H 94 08/07/19 22:25 97 H 94 08/07/19 22:21 95 H 94 08/07/19 22:20 98 H 95 08/07/19 22:16 95 H 94 08/07/19 22:15 97 H 94 08/07/19 22:11 100 H 94 08/07/19 22:10 99 H 96 08/07/19 22:05 100 H 94 08/07/19 22:00 100 H 94 08/07/19 21:55 101 H 94 08/07/19 21:50 100 H 94 08/07/19 21:46 96 H 144/67 H 08/07/19 21:45 100 H 94 08/07/19 21:43 98 H 94 08/07/19 21:40 102 H 96 08/07/19 21:37 100 H 94 08/07/19 21:35 97 H 95 08/07/19 21:32 102 H 94 08/07/19 21:30 99 H 96 08/07/19 21:26 98 H 94 08/07/19 21:25 101 H 94 08/07/19 21:21 99 H 94 08/07/19 21:20 98 H 95 08/07/19 21:15 100 H 96 08/07/19 21:10 98 H 96 08/07/19 21:05 105 H 96 08/07/19 20:48 102 H 93 08/07/19 20:45 100 H 96 08/07/19 20:44 101 H 181/82 H 08/07/19 20:40 99 H 96 08/07/19 20:35 98 H 95 08/07/19 20:30 101 H 96 08/07/19 20:29 98 H 170/77 H 11/13/19 20:25 97 H 96 08/07/19 20:23 99 H 94 08/07/19 20:20 99 H 96 08/07/19 20:15 101 H 96 08/07/19 20:14 100 H 171/77 H 08/07/19 20:10 100 H 95 08/07/19 20:05 102 H 95 08/07/19 20:04 100 H 94 08/07/19 20:00 100 H 95 08/07/19 19:59 99 H 167/74 H 08/07/19 19:55 100 H 96 08/07/19 19:52 104 H 94 08/07/19 19:50 106 H 95 08/07/19 19:47 96 H 94 08/07/19 19:45 94 H 96 08/07/19 19:44 97 H 167/76 H Laboratory Results Laboratory Results - last 24 hr 08/07/19 08/07/19 08/08/19 14:04 14:04 04:53 WBC 11.25 H 11.62 H RBC 4.02 L 3.97 L Hgb 11.7 L 11.4 L Hct 33.7 L 33.9 L MCV 83.8 85.4 MCH 29.1 28.7 MCHC 34.7 33.6 RDW Std Deviation 44.7 46.1 RDW Coeff of Ximena 14.4 14.8 H Plt Count 179 188 MPV 10.1 10.3 Immature Gran % (Auto) 0.3 0.2 Neut % (Auto) 84.3 78.9 Lymph % (Auto) 11.6 15.4 [place] % (Auto) 3.0 4.0 Eos % (Auto) 0.7 1.4 Baso % (Auto) 0.1 0.1 Immature Gran # (Auto) 0.03 H 0.02 Neut # (Auto) 9.48 H 9.17 H Lymph # (Auto) 1.31 1.79 Rowan # (Auto) 0.34 0.47 Eos # (Auto) 0.08 0.16 Baso # (Auto) 0.01 0.01 VBG pH VBG pCO2 VBG pO2 VBG HCO3 VBG O2 Saturation VBG Base Excess Barometric Pressure Sodium Potassium Chloride Carbon Dioxide Anion Gap BUN Creatinine Est Cr Clr Drug Dosing Est GFR ( Amer) Est GFR (Non-Af Amer) BUN/Creatinine Ratio Glucose Uric Acid Calcium Magnesium Magnesium (Sulf Ther) 5.6 Total Bilirubin AST ALT Alkaline Phosphatase Lactate Dehydrogenase Troponin I Total Protein Albumin Globulin Albumin/Globulin Ratio TSH Urine Color Urine Appearance Urine pH Ur Specific [place] Urine Protein Urine Glucose (UA) Urine Ketones Urine Blood Urine Nitrite Urine Bilirubin Urine Urobilinogen Ur Leukocyte Esterase Nasal Screen MRSA (PCR) 08/08/19 08/08/19 08/08/19 04:53 04:53 06:35 WBC RBC Hgb Hct MCV MCH MCHC RDW Std Deviation RDW Coeff of Ximena Plt Count MPV Immature Gran % (Auto) Neut % (Auto) Lymph % (Auto) [place] % (Auto) Eos % (Auto) Baso % (Auto) Immature Gran # (Auto) Neut # (Auto) Lymph # (Auto) [place] # (Auto) Eos # (Auto) Baso # (Auto) VBG pH 7.44 H VBG pCO2 32 L VBG pO2 35 VBG HCO3 21 VBG O2 Saturation 68.8 VBG Base Excess -2.3 Barometric Pressure 738.3 Sodium 140 Potassium 3.4 L Chloride 107 Carbon Dioxide 26 Anion Gap 7.0 BUN 10 Creatinine 0.92 Est Cr Clr Drug Dosing 111.9 Est GFR ( Amer) 92.8 Est GFR (Non-Af Amer) 80.1 BUN/Creatinine Ratio 10.8 Glucose 110 H Uric Acid Calcium 7.9 L Magnesium 3.1 H Magnesium (Sulf Ther) Total Bilirubin 0.3 AST 21 ALT 14 Alkaline Phosphatase 60 Lactate Dehydrogenase Troponin I Cancelled < 0.015 Total Protein 5.4 L Albumin 2.0 L Globulin 3.4 Albumin/Globulin Ratio 0.6 L TSH Cancelled 3.360 Urine Color Urine Appearance Urine pH Ur Specific [place] Urine Protein Urine Glucose (UA) Urine Ketones Urine Blood Urine Nitrite Urine Bilirubin Urine Urobilinogen Ur Leukocyte Esterase Nasal Screen MRSA (PCR) 08/08/19 08/08/19 08/08/19 06:59 06:59 07:32 WBC RBC Hgb Hct MCV MCH MCHC RDW Std Deviation RDW Coeff of Ximena Plt Count MPV Immature Gran % (Auto) Neut % (Auto) Lymph % (Auto) [place] % (Auto) Eos % (Auto) Baso % (Auto) Immature Gran # (Auto) Neut # (Auto) Lymph # (Auto) [place] # (Auto) Eos # (Auto) Baso # (Auto) VBG pH VBG pCO2 VBG pO2 VBG HCO3 VBG O2 Saturation VBG Base Excess Barometric Pressure Sodium Potassium Chloride Carbon Dioxide Anion Gap BUN Creatinine Est Cr Clr Drug Dosing Est GFR ( Amer) Est GFR (Non-Af Amer) BUN/Creatinine Ratio Glucose Uric Acid Calcium Magnesium Magnesium (Sulf Ther) Total Bilirubin AST ALT Alkaline Phosphatase Lactate Dehydrogenase 304 H Troponin I Total Protein Albumin Globulin Albumin/Globulin Ratio TSH Urine Color Yellow Urine Appearance Clear Urine pH 7.5 Ur Specific [place] 1.014 Urine Protein Negative Urine Glucose (UA) Negative Urine Ketones Negative Urine Blood Negative Urine Nitrite Negative Urine Bilirubin Negative Urine Urobilinogen Negative Ur Leukocyte Esterase Negative Nasal Screen MRSA (PCR) Pending 08/08/19 07:32 WBC RBC Hgb Hct MCV MCH MCHC RDW Std Deviation RDW Coeff of Ximena Plt Count MPV Immature Gran % (Auto) Neut % (Auto) Lymph % (Auto) [place] % (Auto) Eos % (Auto) Baso % (Auto) Immature Gran # (Auto) Neut # (Auto) Lymph # (Auto) [place] # (Auto) Eos # (Auto) Baso # (Auto) VBG pH VBG pCO2 VBG pO2 VBG HCO3 VBG O2 Saturation VBG Base Excess Barometric Pressure Sodium Potassium Chloride Carbon Dioxide Anion Gap BUN Creatinine Est Cr Clr Drug Dosing Est GFR ( Amer) Est GFR (Non-Af Amer) BUN/Creatinine Ratio Glucose Uric Acid 6.4 Calcium Magnesium Magnesium (Sulf Ther) Total Bilirubin AST ALT Alkaline Phosphatase Lactate Dehydrogenase Troponin I Total Protein Albumin Globulin Albumin/Globulin Ratio TSH Urine Color Urine Appearance Urine pH Ur Specific [place] Urine Protein Urine Glucose (UA) Urine Ketones Urine Blood Urine Nitrite Urine Bilirubin Urine Urobilinogen Ur Leukocyte Esterase Nasal Screen MRSA (PCR) Diagnostic Findings Chest CTA 08/08/19 1. No evidence of acute pulmonary embolism 2. Small bilateral pleural effusions, subpleural septal edema, and multifocal bilateral groundglass alveolar opacities. The findings are consistent with pulmonary edema. Clinical and imaging follow-up is recommended. Repeat CXR this AM 08/08/19 Improving pulmonary edema pattern Medications Administered Hydralazine HCl (Hydralazine Hcl) 10 mg IV Q2H PRN PRN Reason: Blood Pressure - Low Stop: 09/07/19 07:35 Last Admin: 08/08/19 08:27 Dose: 10 mg Documented by: [id number] Furosemide 20 mg/ Syringe 2 mls @ 4 mls/min IV [id number] [facility] Stop: 09/07/19 08:59 Last Admin: 08/08/19 09:00 Dose: 4 mls/min Documented by: [id number] Nicardipine HCl 25 mg/ Sodium (Chloride) 250 mls @ 80 mls/hr IV .Q3H8M [facility]; Protocol Stop: 09/07/19 06:29 Last Titration: 08/08/19 07:35 Dose: 8 mg/hr, 80 mls/hr Documented by: [id number] Titration: 08/08/19 07:00 Dose: 10 mg/hr, 100 mls/hr Documented by: [id number] Admin: 08/08/19 06:41 Dose: 5 mg/hr, 50 mls/hr Documented by: [id number] Cosigned by: [id number] Ioversol (Optiray 320 125ml) 125 ml IV ONCE PRN PRN Reason: Interaction Checking Stop: 08/12/19 06:24 Last Admin: 08/08/19 06:25 Dose: 92 ml Documented by: [id number] Magnesium Hydroxide (Milk Of Magnesia) 30 ml PO [facility] Stop: 09/06/19 20:59 Last Admin: 08/07/19 20:42 Dose: Not Given Documented by: [id number] Ondansetron HCl (Zofran) 4 mg IV Q4H PRN PRN Reason: Nausea And Vomiting Stop: 09/05/19 16:18 Last Admin: 08/06/19 20:56 Dose: 4 mg Documented by: [id number] Potassium Chloride (Klor-Con M20) 40 meq PO TID [facility] Stop: 09/07/19 08:59 Last Admin: 08/08/19 08:27 Dose: Not Given Documented by: [id number] Prenat Multivit/[place]/Iron/Folic Ac ( Vitamin) 1 tab PO DAILY@08 [facility] Stop: 09/06/19 07:59 Last Admin: 08/08/19 08:26 Dose: 1 tab Documented by: [id number] Admin: 08/07/19 08:39 Dose: Not Given Documented by: [id number] Sennosides (Senokot) 17.2 mg PO [facility] Stop: 09/06/19 20:59 Last Admin: 08/07/19 20:42 Dose: Not Given Documented by: [id number] PG Care Time/CCT Total # of Minutes Spent Total Time Spent with Patient: Total time spent is greater than 50% in coordination of care (as documented) at patient's floor/unit and/or counseling patient: 40 minutes critical care time evaluating managing and stabilizing patient Resident Activity Tracking Resident Involvement: Resident Care Provided Care Provided: Adult Hospital Medicine (ICU)
[2019-08-08] MEDS: PRENATAL VITAMIN 1 TAB PO SCH (08:26)
[2019-08-08] MEDS: POTASSIUM CHLORIDE 20 MEQ TABCR PO SCH ×3 (08:27→20:49)
[2019-08-08] MEDS: HydrALAZINE HCL 20 MG/ML VIAL IV PRN ×3 (08:27→18:00)
[2019-08-08] MEDS ORDERED: FUROSEMIDE 20 MG in SYRINGE 0 ML IV SCH (09:00)
[2019-08-08] MEDS ORDERED: LABETALOL HCL 300 MG TAB PO SCH (09:00)
[2019-08-08] MEDS: ACETAMINOPHEN 325 MG TAB PO PRN (15:02)
--- NOTE | 2019-08-08 15:47 | Hospitalist Progress Note ---
Date of Service August 08, 2019 Assessment & Plan (1) Pulmonary edema: 34-year-old female with past medical history of hypertension, gestational diabetes, and obesity presented with pulmonary edema and elevated BPs post-op day 1. Now doing well in ICU for additional monitoring. Pulmonary edema -Secondary to fluid overload and severe preeclampsia -profound diuresis with IV Lasix. Holding additional diuretics at this time -08/08 ECHO: Mild concentric LVH. LV is hyperdynamic. RV systolic pressure is normal. No significant valvular heart disease. -08/08 CXR: Improving pulmonary edema pattern -08/08 Chest CTA: No evidence of acute pulmonary embolism -subjectively doing better. Sating well on NC Chronic hypertension -as evidenced by LVH seen on ECHO -continue labetalol 200 mg BID. Added Lisinopril 10 mg daily. Both safe for use in -weaned off Cardene gtt -Hydralazine 10mg q2H PRN for systolic >160 Diet controlled GDM -A1C in AM and can follow-up on her diabetes as an outpatient FEN/GI: OB Diet DVT Prophylaxis: Deferred Full Code Dispo: Anticipate downgrade out of ICU tomorrow Supervising Physician Co-Signing Physician Notes I personally examined the patient and verified all collier points of history and exam, discussed case, and agree with decision making with Dr Claros. Feeling much better. Breathing much better. His put out a large amount of urine. No new complaints. Vitals noted, in general she is awake and alert pleasant no distress. HEENT normocephalic atraumatic mucous members moist. Breathing unlabored no accessory muscle use good effort. Skin shows no rashes no pallor or icterus. Uncontrolled hypertension/severe preeclampsia/pulmonary edemaimproving nicely. Plan as above. Asymptomatic now. Suspect given her borderline LVH with her young age that her blood pressure at home may not be as well controlled as she believes it to be. Discussed extensive ambulatory monitoring. Subjective 34 yo F found in bed this AM in NAD distress. Notes feeling much better since arriving in ICU. Profound UOP. No issues with breathing. Denies CP, SOB. Tolerating PO intake. No other acute concerns or complaints. Review of Systems Review of Systems: All systems reviewed & are unremarkable except as noted in HPI & below Physical Exam Constitutional: WD/WN, vitals as above Eyes: PERRL, conjunctivae normal, anicteric sclerae ENMT: external ear and nose normal, oropharynx normal Respiratory: normal respiratory effort crackles bases Cardiovascular: RRR, no murmur, no edema Gastrointestinal (Abdomen): normal bowel sounds, soft, nontender, no hepatosplenomegaly Skin: no rashes, warm and dry Psychiatric: A+Ox3, euthymic affect Lymphatic: LE edema Results & Data Vital Signs (Past 12 Hours) Vital Signs Temp Pulse Pulse Resp BP BP Pulse Ox 08/08/19 15:00 110 H 180/88 H 96 08/08/19 13:00 118 H 138/90 97 08/08/19 12:30 114 H 168/73 H 96 08/08/19 12:00 36.6 C 111 H 133/85 98 08/08/19 11:30 113 H 141/68 H 96 08/08/19 11:16 125 H 144/74 H 97 08/08/19 11:00 116 H 181/87 H 96 08/08/19 10:30 178/86 H 96 08/08/19 10:01 150/74 H 97 08/08/19 09:31 105 H 96 08/08/19 09:30 105 H 123/72 96 08/08/19 09:22 105 H 102/71 96 08/08/19 09:00 106 H 146/81 H 95 08/08/19 08:45 118 H 172/83 H 96 08/08/19 08:30 116 H 186/94 H 96 08/08/19 08:15 120 H 175/82 H 96 08/08/19 08:00 36.6 C 114 H 139/94 96 08/08/19 07:45 120 H 186/94 H 94 08/08/19 07:30 123 H 192/86 H 95 08/08/19 07:15 117 H 187/80 H 96 08/08/19 07:00 119 H 116 H 18 187/95 H 187/95 H 95 08/08/19 06:20 36.6 C 18 205/122 H 97 08/08/19 05:53 112 H 196/87 H 08/08/19 05:51 114 H 97 08/08/19 05:49 112 H 203/89 H 08/08/19 05:46 110 H 192/87 H 97 08/08/19 05:43 110 H 187/85 H 08/08/19 05:41 112 H 97 08/08/19 05:40 109 H 188/84 H 08/08/19 05:37 110 H 182/81 H 08/08/19 05:36 109 H 96 08/08/19 05:34 104 H 172/79 H 08/08/19 05:31 103 H 171/77 H 96 08/08/19 05:29 102 H 171/78 H 08/08/19 05:26 105 H 96 08/08/19 05:21 110 H 97 08/08/19 05:16 125 H 96 08/08/19 05:06 117 H 196/88 H 08/08/19 05:04 114 H 98 08/08/19 05:02 109 H 189/84 H 08/08/19 04:59 110 H 96 08/08/19 04:54 105 H 97 08/08/19 04:51 102 H 182/81 H 08/08/19 04:49 101 H 96 08/08/19 04:46 102 H 180/79 H 08/08/19 04:44 101 H 96 08/08/19 04:41 100 H 171/76 H 08/08/19 04:39 100 H 96 08/08/19 04:36 100 H 171/77 H 08/08/19 04:34 102 H 96 08/08/19 04:31 96 H 172/78 H 08/08/19 04:29 96 H 95 08/08/19 04:24 96 H 94 08/08/19 04:23 96 H 94 08/08/19 04:21 96 H 168/75 H 08/08/19 04:19 107 H 93 08/08/19 04:18 106 H 94 08/08/19 04:14 95 H 95 08/08/19 04:09 94 H 95 08/08/19 04:05 90 183/84 H 08/08/19 04:04 96 H 199/93 H 97 08/08/19 04:01 98 H 94 08/08/19 04:00 37.0 C 20 08/08/19 03:59 94 H 96 08/08/19 03:47 96 H 96 08/08/19 03:43 85 94 08/08/19 03:42 90 95 08/08/19 03:37 95 H 96 Laboratory Results Laboratory Results - last 24 hr 08/08/19 08/08/19 08/08/19 04:53 04:53 04:53 WBC 11.62 H RBC 3.97 L Hgb 11.4 L Hct 33.9 L MCV 85.4 MCH 28.7 MCHC 33.6 RDW Std Deviation 46.1 RDW Coeff of Ximena 14.8 H Plt Count 188 MPV 10.3 Immature Gran % (Auto) 0.2 Neut % (Auto) 78.9 Lymph % (Auto) 15.4 [place] % (Auto) 4.0 Eos % (Auto) 1.4 Baso % (Auto) 0.1 Immature Gran # (Auto) 0.02 Neut # (Auto) 9.17 H Lymph # (Auto) 1.79 [place] # (Auto) 0.47 Eos # (Auto) 0.16 Baso # (Auto) 0.01 VBG pH VBG pCO2 VBG pO2 VBG HCO3 VBG O2 Saturation VBG Base Excess Barometric Pressure Sodium 140 Potassium 3.4 L Chloride 107 Carbon Dioxide 26 Anion Gap 7.0 BUN 10 Creatinine 0.92 Est Cr Clr Drug Dosing 111.9 Est GFR ( Amer) 92.8 Est GFR (Non-Af Amer) 80.1 BUN/Creatinine Ratio 10.8 Glucose 110 H POC Glucose Uric Acid Calcium 7.9 L Magnesium 3.1 H Total Bilirubin 0.3 AST 21 ALT 14 Alkaline Phosphatase 60 Lactate Dehydrogenase Troponin I Cancelled < 0.015 NT-Pro-B Natriuret Pep Total Protein 5.4 L Albumin 2.0 L Globulin 3.4 Albumin/Globulin Ratio 0.6 L Procalcitonin TSH Cancelled 3.360 Urine Color Urine Appearance Urine pH Ur Specific [place] Urine Protein Urine Glucose (UA) Urine Ketones Urine Blood Urine Nitrite Urine Bilirubin Urine Urobilinogen Ur Leukocyte Esterase Nasal Screen MRSA (PCR) 08/08/19 08/08/19 08/08/19 06:35 06:59 06:59 WBC RBC Hgb Hct MCV MCH MCHC RDW Std Deviation RDW Coeff of Ximena Plt Count MPV Immature Gran % (Auto) Neut % (Auto) Lymph % (Auto) [place] % (Auto) Eos % (Auto) Baso % (Auto) Immature Gran # (Auto) Neut # (Auto) Lymph # (Auto) [place] # (Auto) Eos # (Auto) Baso # (Auto) VBG pH 7.44 H VBG pCO2 32 L VBG pO2 35 VBG HCO3 21 VBG O2 Saturation 68.8 VBG Base Excess -2.3 Barometric Pressure 738.3 Sodium Potassium Chloride Carbon Dioxide Anion Gap BUN Creatinine Est Cr Clr Drug Dosing Est GFR ( Amer) Est GFR (Non-Af Amer) BUN/Creatinine Ratio Glucose POC Glucose Uric Acid Calcium Magnesium Total Bilirubin AST ALT Alkaline Phosphatase Lactate Dehydrogenase Troponin I NT-Pro-B Natriuret Pep Total Protein Albumin Globulin Albumin/Globulin Ratio Procalcitonin TSH Urine Color Yellow Urine Appearance Clear Urine pH 7.5 Ur Specific [place] 1.014 Urine Protein Negative Urine Glucose (UA) Negative Urine Ketones Negative Urine Blood Negative Urine Nitrite Negative Urine Bilirubin Negative Urine Urobilinogen Negative Ur Leukocyte Esterase Negative Nasal Screen MRSA (PCR) Negative 08/08/19 08/08/19 08/08/19 07:32 07:32 07:32 WBC RBC Hgb Hct MCV MCH MCHC RDW Std Deviation RDW Coeff of Ximena Plt Count MPV Immature Gran % (Auto) Neut % (Auto) Lymph % (Auto) [place] % (Auto) Eos % (Auto) Baso % (Auto) Immature Gran # (Auto) Neut # (Auto) Lymph # (Auto) [place] # (Auto) Eos # (Auto) Baso # (Auto) VBG pH VBG pCO2 VBG pO2 VBG HCO3 VBG O2 Saturation VBG Base Excess Barometric Pressure Sodium Potassium Chloride Carbon Dioxide Anion Gap BUN Creatinine Est Cr Clr Drug Dosing Est GFR ( Amer) Est GFR (Non-Af Amer) BUN/Creatinine Ratio Glucose POC Glucose Uric Acid 6.4 Calcium Magnesium Total Bilirubin AST ALT Alkaline Phosphatase Lactate Dehydrogenase 304 H Troponin I NT-Pro-B Natriuret Pep 238 Total Protein Albumin Globulin Albumin/Globulin Ratio Procalcitonin TSH Urine Color Urine Appearance Urine pH Ur Specific [place] Urine Protein Urine Glucose (UA) Urine Ketones Urine Blood Urine Nitrite Urine Bilirubin Urine Urobilinogen Ur Leukocyte Esterase Nasal Screen MRSA (PCR) 08/08/19 08/08/19 07:37 10:15 WBC RBC Hgb Hct MCV MCH MCHC RDW Std Deviation RDW Coeff of Ximena Plt Count MPV Immature Gran % (Auto) Neut % (Auto) Lymph % (Auto) [place] % (Auto) Eos % (Auto) Baso % (Auto) Immature Gran # (Auto) Neut # (Auto) Lymph # (Auto) [place] # (Auto) Eos # (Auto) Baso # (Auto) VBG pH VBG pCO2 VBG pO2 VBG HCO3 VBG O2 Saturation VBG Base Excess Barometric Pressure Sodium Potassium Chloride Carbon Dioxide Anion Gap BUN Creatinine Est Cr Clr Drug Dosing Est GFR ( Amer) Est GFR (Non-Af Amer) BUN/Creatinine Ratio Glucose POC Glucose 116 H Uric Acid Calcium Magnesium Total Bilirubin AST ALT Alkaline Phosphatase Lactate Dehydrogenase Troponin I NT-Pro-B Natriuret Pep Total Protein Albumin Globulin Albumin/Globulin Ratio Procalcitonin 0.21 TSH Urine Color Urine Appearance Urine pH Ur Specific [place] Urine Protein Urine Glucose (UA) Urine Ketones Urine Blood Urine Nitrite Urine Bilirubin Urine Urobilinogen Ur Leukocyte Esterase Nasal Screen MRSA (PCR) Medications Administered Current Inpatient Medications Acetaminophen (Tylenol) 650 mg PO Q6H PRN PRN Reason: Headache Stop: 09/07/19 14:40 Last Admin: 08/08/19 15:02 Dose: 650 mg Documented by: Benzocaine (Dermoplast Pain Relieving Hers[place]) 1 appln EXT UD PRN PRN Reason: use on skin as needed Stop: 09/05/19 16:18 Cocaine HCl (Supercream 0.870%) 1 gm EXT UD PRN PRN Reason: hemmorrhoidal inflammation Stop: 08/20/19 16:18 Diphenhydramine HCl (Benadryl Capsule) 25 mg PO QID PRN PRN Reason: Itching Stop: 09/06/19 09:14 Diphenhydramine HCl (Benadryl) 25 mg IV QID PRN PRN Reason: Itching Stop: 09/06/19 09:14 Hydralazine HCl (Hydralazine Hcl) 10 mg IV Q2H PRN PRN Reason: Blood Pressure - Low Stop: 09/07/19 07:35 Last Admin: 08/08/19 10:42 Dose: 10 mg Documented by: Hydrocortisone (Anusol Hc) 25 mg ND BID PRN PRN Reason: Hemorrhoids Stop: 09/05/19 16:18 Nicardipine HCl 50 mg/ Sodium (Chloride) 250 mls @ 30 mls/hr IV .[id number] JAIDEN; Protocol Stop: 09/07/19 09:14 Last Titration: 08/08/19 09:29 Dose: 0 mg/hr, 0 mls/hr Documented by: Ioversol (Optiray 320 125ml) 125 ml IV ONCE PRN PRN Reason: Interaction Checking Stop: 08/12/19 06:24 Last Admin: 08/08/19 06:25 Dose: 92 ml Documented by: Labetalol HCl (Normodyne) 200 mg PO BID [facility] Stop: 09/07/19 20:59 Lisinopril (Zestril) 10 mg PO QAM [facility] Stop: 09/07/19 15:59 Magnesium Hydroxide (Milk Of Magnesia) 30 ml PO HS [facility] Stop: 09/06/19 20:59 Last Admin: 08/07/19 20:42 Dose: Not Given Documented by: Miscellaneous (Icu Protocol For Hyperglycemia) 1 ea N/A PRN PRN; Protocol PRN Reason: Hyperglycemia Protocol Stop: 08/10/19 06:38 Ondansetron HCl (Zofran) 4 mg IV Q4H PRN PRN Reason: Nausea And Vomiting Stop: 09/05/19 16:18 Last Admin: 08/06/19 20:56 Dose: 4 mg Documented by: Oxycodone/Acetaminophen (Percocet 5mg/325mg) 1 - 2 tab PO Q4H PRN PRN Reason: Pain Stop: 08/22/19 08:24 Last Admin: 08/08/19 09:59 Dose: 2 tab Documented by: Potassium Chloride (Klor-Con M20) 40 meq PO TID [facility] Stop: 09/07/19 08:59 Last Admin: 08/08/19 15:02 Dose: 40 meq Documented by: Prenat Multivit/Lee/Iron/Folic Ac ( Vitamin) 1 tab PO DAILY@08 [facility] Stop: 09/06/19 07:59 Last Admin: 08/08/19 08:26 Dose: 1 tab Documented by: Sennosides (Senokot) 17.2 mg PO HS [facility] Stop: 09/06/19 20:59 Last Admin: 08/07/19 20:42 Dose: Not Given Documented by: Resident Activity Tracking Resident Involvement: Resident Care Provided Care Provided: Adult Hospital Medicine
[2019-08-08] MEDS: LISINOPRIL 10 MG TAB PO SCH (16:04)
[2019-08-08] MEDS ORDERED: NON-FORMULARY MEDICATION (Breast Pump 1 UNITS) SCH (16:30)
[2019-08-08] MEDS: MAGNESIUM HYDROXIDE SUSP 30 ML UDC PO SCH (18:04)
--- NOTE | 2019-08-08 18:32 | Billing Data ---
Coding Level of Care Code 77347 Subseq Hosp Care Lvl 2
[2019-08-08] MEDS: LABETALOL HCL 200 MG TAB PO SCH (20:49)
[2019-08-08] MEDS: SENNA 8.6 MG TAB PO SCH (20:50)
[2019-08-09] MEDS: HydrALAZINE HCL 20 MG/ML VIAL IV PRN ×5 (00:04→18:11)
[2019-08-09] MEDS: OXYCODONE/ACETAMINOPHEN 5mg/325mg TAB PO PRN ×3 (00:54→20:39)
[2019-08-09 03:59] LABS: Basophils # (auto) 0.03 K/uL (0-0.2); Basophils % (auto) 0.2 %; Eosinophils # (auto) 0.34 K/uL (0-0.5); Eosinophils % (auto) 2.1 %; Hematocrit (blood only) 35.5 % (37-47); Immature Granulocytes # (auto) 0.06 K/uL (0.00-0.02); Immature Granulocytes % (auto) 0.4 %; Lymphocytes # (auto) 2.56 K/uL (1.2-3.4); Lymphocytes % (auto) 15.9 %; Mean Corpuscular Hgb Conc 33.8 g/dL (32-36); Mean Corpuscular Volume 85.7 fL (80-100); Mean Platelet Volume 9.7 fL (7.4-10.4); Monocytes # (auto) 0.79 K/uL (0.11-0.59); Monocytes % (auto) 4.9 %; Neutrophils # (auto) 12.31 K/uL (1.4-6.5); Neutrophils % (auto) 76.5 %; Platelet Count 219 K/uL (130-400); RDW Coefficient of Variation 15.3 % (11.5-14.5); RDW Standard Deviation 47.9 fL (36.4-46.3); Red Blood Count 4.14 M/uL (4.2-5.4); White Blood Count 16.09 K/uL (4.8-10.8)
[2019-08-09 04:12] LABS: INR 0.9 (0.9-1.1); Partial Thromboplastin Ratio 1.1; Partial Thromboplastin Time 28.8 Seconds (21.0-31.0); Prothrombin Time 9.6 Seconds (9.0-12.0)
[2019-08-09 04:29] LABS: Albumin Level 2.2 gm/dl (3.4-5.0); BUN Creatinine Ratio 13.8 (10-20); Calcium 8.7 mg/dl (8.5-10.1); Creatinine Clr Calc Pharmacy 130.6 ml/min; Est GFR (African American) 111.6; Est GFR (Non-African American) 96.3; Magnesium 2.2 mg/dl (1.8-2.4); Potassium 3.8 mmol/L (3.5-5.1)
[2019-08-09 04:33] LABS: Bilirubin Direct 0.1 mg/dl (0-0.2); Bilirubin,Total 0.5 mg/dl (0.2-1); Phosphorus 3.5 mg/dl (2.5-4.9); Total Protein 6.1 gm/dl (6.4-8.2)
[2019-08-09 06:12] LABS: Estimated Average Glucose 111 mg/dl; Hemoglobin A1C 5.5 % (4.5-5.6)
[2019-08-09] MEDS: ACETAMINOPHEN 325 MG TAB PO PRN (06:17)
--- NOTE | 2019-08-09 06:57 | XRay Report ---
XR chest 1V portable HISTORY: 34 years-old Female f/u follow-up study in a patient with pulmonary edema COMPARISON: Chest radiograph and CTA chest 08/08/2019 TECHNIQUE: Portable AP view of the chest FINDINGS: Cardiac silhouette is mildly enlarged, unchanged. No pneumothorax, large pleural effusion or new foca l airspace consolidation. There is near complete resolution of the previously described pulmonary patrick ma. Trace pleural effusions persist. No pneumothorax. Bones appear grossly intact. IMPRESSION: 1. Near complete resolution of the previously described pulmonary edema. 2. Trace pleural effusions. The above report was generated using voice recognition software. It may contain grammatical, syntax o r spelling errors. Electronically signed by: Howard Correa M.D. 08/09/2019 6:56 AM
--- NOTE | 2019-08-09 07:04 | Critical Care Progress Note ---
Date of Service August 09, 2019 Assessment & Plan (1) Maternal admission to intensive care unit: Reason Critically Ill: Belkis Munoz is a 34 y/o female currently post-op day #3 from of baby girl. On post-op day #2, she presented for pulmonary edema and elevated BPs needing more intensive monitoring and management. Neuro Alert and oriented x3 Anxious appearance resolved from yesterday Percocet for post-op pain Cardiac/Vascular Prior to transfer from OB floord was having systolic levels in 190s Review of records show she received Labetalol 100mg PO q12 starting 1112 8pm, receiving 2 doses; then received a total of Labetalol 300mg PO 8pm 08/07; she did receive Hydralazine 10mg IV x1 dose approx 4am; and another 5mg IV dose x1 approx 4:52am. She received Lasix 40mg approx 5pm 08/07. Was on Nicardipine drip this was able to be held early yesterday morning. On 08/08; during morning multidisciplinary rounds she was off of Nicardipine drip. Continue with Labetalol 200mg PO BID Hydralazine 10mg q2H PRN for systolic >160 Didn't require any diuretics/Lasix overnight Monitor hemodynamics; currently mildly tachycardiac in 100s. BP is improving here in ICU, currently 150s-160s/77-89. Echocardiogram Trans thoracic performed 08/09 * Mild concentric LVH; LV is hyperdynamic; right ventricle systolic pressure is normal; no significant valvular disease Pulm: Admitted for Pulmonary Edema CTA was negative for PE and showing Pulmonary Edema CXR repeat this AM showed near resolution of Pulmonary Edema and trace bilateral pleural effusion; correlated with improved breath sounds on exam. Currently on 96% on RA Subjectively reports improvement Didn't require any diuretics/Lasix overnight GI: No RUQ pain reported LFTs WNL; Lipase not elevated 08/08 LDH level which was elevated at 304 Diet: OB diet Renal/Lytes: In setting of aggressive diuresis with lasix to prevent electrolyte abnormalities with KCl 40meq PO TID Potassium WNL 3.8; Na was WNL Trend Lytes and Renal function Mag WNL 2.2; Calcium 8.7 WNL; Phos 3.5 WNL Creatinine WNL this AM 0.79 24Hour output -5689mL with 3.39 mL/kg/hr; cumulative balance of [id number] : Aranda was removed No proteinuria in UA taken on 08/08 Endo: ICU hyperglycemic protocol reported hx of gestational diabetes diet controlled A1C ordered by hospitalists team 5.5 Heme: Hgb 12 this AM; no signs of bleeding; coags WNL WBC 16.09 in setting of post-op day 3 from Uric Acid level WNL ID: No current concerns for infection, afebrile reported to have received Ancef 3gm pre-op for Procal was negative OB Care: Continue routine OB post- care; consulted, encourage breast feeding; transfer back to OB floor Lines: peripheral IVs DVT ppx: SCDs Stable for downgrade out of ICU. (2) Pulmonary edema: (3) Chronic hypertension with superimposed pre-eclampsia: (4) Diet controlled gestational diabetes mellitus (GDM), antepartum: (5) Depression with anxiety: (6) Chronic hypertension during , antepartum: Supervising Physician Co-Signing Physician Notes Seen and examined. Discussed with GENNARO overnight and with family practice resident. Agree with assessment and plan as noted with following addendum Patient remains significantly clinically improved. She is off oxygen. She is off all parental blood pressure agents. She remains mildly hypertensive but much better than when transferred to the ICU. Her pain is adequately controlled. She is tolerating regular diet. No chest pain palpitations. No vision changes. No headaches or nausea or vomiting Impression: 34-year-old female with preeclampsia and significant hypertension brought to the ICU for hypoxemic respiratory failure and hypertensive urgency. Recognitions: 1. Hypertension: Continue labetalol will need additional titration of blood pressure medications. Given her young age and degree of hypertension, consideration for evaluation of secondary hypertension in setting. Echocardiogram demonstrated LVH but no other abnormal findings 2. Hypoxemic respiratory failure: Resolved. Now on room air. Procalcitonin was normal. 3. Leukocytosis: Suspect reactive due to recent delivery. Continue to follow for now. Patient is appropriate to transfer out of the ICU back to the mother-baby unit with a general hospital floor. Will sign off when she leaves the ICU. Feel free to contact us if we can be of additional assistance. Subjective Belkis had no acute overnight events per staff. She notes her dyspnea has improved. She does have an ocular migraine which she states is something she deals with chronically. No nausea, vomiting, fever, chills, RUQ pain, double vision. Her anxiety has also improved from yesterday. Her incision site pain is well controlled with analgesics. She is eating and drinking without complications. Aranda was removed and urinating without difficulty. Review of Systems Constitutional: no fever and no chills Eyes: no diplopia, not seeing flashes, no spots in vision and no worsening vision Ear, Nose, Mouth, Throat: no epistaxis Respiratory: no cough Cardiovascular: no chest pain Gastrointestinal: + abdominal pain (no RUQ; localized to post up surgical site pain); no nausea and no vomiting Genitourinary: no difficulty urinating Neurologic: + headache(s) (mild ocular); no localized weakness, no numbness, no dizziness and no confusion Psychiatric: no depression and no anxiety Physical Exam Constitutional: WD/WN, vitals as above cooperative and comfortable Eyes: PERRL and EOM intact bilaterally ENMT: external ear and nose normal, oropharynx normal Neck: normal visual inspection and trachea midline Respiratory: no respiratory distress and does not use accessory muscles Auscultation: + diminished lung sounds (left anterior base otherwise good airmovement); no crackles and no wheezes Cardiovascular: Rate/Rhythm: regular rhythm and + tachycardic (mildly 104) Extremities: + edema (lower extremity bilaterally improving from yesterday); no calf tenderness Gastrointestinal (Abdomen): Percussion/Palpation: abdomen soft; abdomen nontender and no guarding uterine fundus is firm and non-tender about 3 cm inferior to the umbilicus; surgical incision site dressing is intact, clean, and dry Musculoskeletal: Head/Neck/Chest: normocephalic and head atraumatic Skin: no rashes, warm and dry Neurologic: moves all extremities and awake Cranial Nerves: EOM intact bilaterally Psychiatric: A+Ox3, euthymic affect Orientation: cooperative Results & Data Vital Signs (Past 12 Hours) Vital Signs Temp Pulse Resp BP Pulse Ox 08/09/19 06:00 106 H 20 150/85 H 96 08/09/19 05:30 98 H 96 08/09/19 05:14 105 H 169/89 H 95 08/09/19 05:01 104 H 95 08/09/19 05:00 101 H 22 165/89 H 97 08/09/19 04:00 103 H 18 148/83 H 96 08/09/19 03:54 113 H 20 159/79 H 97 08/09/19 03:00 111 H 163/77 H 96 08/09/19 02:28 105 H 151/81 H 96 08/09/19 02:00 103 H 167/86 H 95 08/09/19 01:00 118 H 134/86 97 08/09/19 00:25 107 H 165/89 H 95 08/09/19 00:00 101 H 20 174/90 H 95 08/08/19 23:56 37.2 C 08/08/19 23:01 108 H 18 165/83 H 98 08/08/19 22:00 103 H 139/76 95 08/08/19 21:08 112 H 166/98 H 08/08/19 20:04 111 H 08/08/19 19:01 96 08/08/19 19:00 37 C 163/86 H 96 Laboratory Results Laboratory Results - last 24 hr 08/08/19 08/08/19 08/08/19 04:53 04:53 06:59 WBC RBC Hgb Hct MCV MCH MCHC RDW Std Deviation RDW Coeff of Ximena Plt Count MPV Immature Gran % (Auto) Neut % (Auto) Lymph % (Auto) [place] % (Auto) Eos % (Auto) Baso % (Auto) Immature Gran # (Auto) Neut # (Auto) Lymph # (Auto) [place] # (Auto) Eos # (Auto) Baso # (Auto) PT INR APTT PTT Ratio Sodium Potassium Chloride Carbon Dioxide Anion Gap BUN Creatinine Est Cr Clr Drug Dosing Est GFR ( Amer) Est GFR (Non-Af Amer) BUN/Creatinine Ratio Glucose POC Glucose Estimat Average Glucose Hemoglobin A1c Uric Acid Calcium Phosphorus Magnesium Total Bilirubin Direct Bilirubin AST ALT Alkaline Phosphatase Lactate Dehydrogenase Troponin I Cancelled < 0.015 NT-Pro-B Natriuret Pep Total Protein Albumin Lipase Procalcitonin TSH Cancelled 3.360 Urine Color Urine Appearance Urine pH Ur Specific [place] Urine Protein Urine Glucose (UA) Urine Ketones Urine Blood Urine Nitrite Urine Bilirubin Urine Urobilinogen Ur Leukocyte Esterase Nasal Screen MRSA (PCR) Negative 08/08/19 08/08/19 08/08/19 06:59 07:32 07:32 WBC RBC Hgb Hct MCV MCH MCHC RDW Std Deviation RDW Coeff of Ximena Plt Count MPV Immature Gran % (Auto) Neut % (Auto) Lymph % (Auto) [place] % (Auto) Eos % (Auto) Baso % (Auto) Immature Gran # (Auto) Neut # (Auto) Lymph # (Auto) [place] # (Auto) Eos # (Auto) Baso # (Auto) PT INR APTT PTT Ratio Sodium Potassium Chloride Carbon Dioxide Anion Gap BUN Creatinine Est Cr Clr Drug Dosing Est GFR ( Amer) Est GFR (Non-Af Amer) BUN/Creatinine Ratio Glucose POC Glucose Estimat Average Glucose Hemoglobin A1c Uric Acid 6.4 Calcium Phosphorus Magnesium Total Bilirubin Direct Bilirubin AST ALT Alkaline Phosphatase Lactate Dehydrogenase 304 H Troponin I NT-Pro-B Natriuret Pep Total Protein Albumin Lipase Procalcitonin TSH Urine Color Yellow Urine Appearance Clear Urine pH 7.5 Ur Specific [place] 1.014 Urine Protein Negative Urine Glucose (UA) Negative Urine Ketones Negative Urine Blood Negative Urine Nitrite Negative Urine Bilirubin Negative Urine Urobilinogen Negative Ur Leukocyte Esterase Negative Nasal Screen MRSA (PCR) 08/08/19 08/08/19 08/08/19 07:32 07:37 10:15 WBC RBC Hgb Hct MCV MCH MCHC RDW Std Deviation RDW Coeff of Ximena Plt Count MPV Immature Gran % (Auto) Neut % (Auto) Lymph % (Auto) [place] % (Auto) Eos % (Auto) Baso % (Auto) Immature Gran # (Auto) Neut # (Auto) Lymph # (Auto) [place] # (Auto) Eos # (Auto) Baso # (Auto) PT INR APTT PTT Ratio Sodium Potassium Chloride Carbon Dioxide Anion Gap BUN Creatinine Est Cr Clr Drug Dosing Est GFR ( Amer) Est GFR (Non-Af Amer) BUN/Creatinine Ratio Glucose POC Glucose 116 H Estimat Average Glucose Hemoglobin A1c Uric Acid Calcium Phosphorus Magnesium Total Bilirubin Direct Bilirubin AST ALT Alkaline Phosphatase Lactate Dehydrogenase Troponin I NT-Pro-B Natriuret Pep 238 Total Protein Albumin Lipase Procalcitonin 0.21 TSH Urine Color Urine Appearance Urine pH Ur Specific [place] Urine Protein Urine Glucose (UA) Urine Ketones Urine Blood Urine Nitrite Urine Bilirubin Urine Urobilinogen Ur Leukocyte Esterase Nasal Screen MRSA (PCR) 08/08/19 08/09/19 08/09/19 20:47 03:52 03:52 WBC 16.09 H RBC 4.14 L Hgb 12.0 Hct 35.5 L MCV 85.7 MCH 29.0 MCHC 33.8 RDW Std Deviation 47.9 H RDW Coeff of Ximena 15.3 H Plt Count 219 MPV 9.7 Immature Gran % (Auto) 0.4 Neut % (Auto) 76.5 Lymph % (Auto) 15.9 [place] % (Auto) 4.9 Eos % (Auto) 2.1 Baso % (Auto) 0.2 Immature Gran # (Auto) 0.06 H Neut # (Auto) 12.31 H Lymph # (Auto) 2.56 [place] # (Auto) 0.79 H Eos # (Auto) 0.34 Baso # (Auto) 0.03 PT INR APTT PTT Ratio Sodium Potassium Chloride Carbon Dioxide Anion Gap BUN Creatinine Est Cr Clr Drug Dosing Est GFR ( Amer) Est GFR (Non-Af Amer) BUN/Creatinine Ratio Glucose POC Glucose 94 Estimat Average Glucose 111 Hemoglobin A1c 5.5 Uric Acid Calcium Phosphorus Magnesium Total Bilirubin Direct Bilirubin AST ALT Alkaline Phosphatase Lactate Dehydrogenase Troponin I NT-Pro-B Natriuret Pep Total Protein Albumin Lipase Procalcitonin TSH Urine Color Urine Appearance Urine pH Ur Specific [place] Urine Protein Urine Glucose (UA) Urine Ketones Urine Blood Urine Nitrite Urine Bilirubin Urine Urobilinogen Ur Leukocyte Esterase Nasal Screen MRSA (PCR) 08/09/19 08/09/19 08/09/19 03:52 03:52 06:13 WBC RBC Hgb Hct MCV MCH MCHC RDW Std Deviation RDW Coeff of Ximena Plt Count MPV Immature Gran % (Auto) Neut % (Auto) Lymph % (Auto) [place] % (Auto) Eos % (Auto) Baso % (Auto) Immature Gran # (Auto) Neut # (Auto) Lymph # (Auto) [place] # (Auto) Eos # (Auto) Baso # (Auto) PT 9.6 INR 0.9 APTT 28.8 PTT Ratio 1.1 Sodium 138 Potassium 3.8 Chloride 107 Carbon Dioxide 25 Anion Gap 6.0 BUN 11 Creatinine 0.79 Est Cr Clr Drug Dosing 130.6 Est GFR ( Amer) 111.6 Est GFR (Non-Af Amer) 96.3 BUN/Creatinine Ratio 13.8 Glucose 92 POC Glucose 109 H Estimat Average Glucose Hemoglobin A1c Uric Acid Calcium 8.7 Phosphorus 3.5 Magnesium 2.2 Total Bilirubin 0.5 Direct Bilirubin 0.1 AST 22 ALT 14 Alkaline Phosphatase 59 Lactate Dehydrogenase Troponin I NT-Pro-B Natriuret Pep Total Protein 6.1 L Albumin 2.2 L Lipase 72 L Procalcitonin TSH Urine Color Urine Appearance Urine pH Ur Specific [place] Urine Protein Urine Glucose (UA) Urine Ketones Urine Blood Urine Nitrite Urine Bilirubin Urine Urobilinogen Ur Leukocyte Esterase Nasal Screen MRSA (PCR) Diagnostic Findings CXR 08/09/19 1. Near complete resolution of the previously described pulmonary edema. 2. Trace pleural effusions. Medications Administered Acetaminophen (Tylenol) 650 mg PO Q6H PRN PRN Reason: Headache Stop: 09/07/19 14:40 Last Admin: 08/09/19 06:17 Dose: 650 mg Documented by: [id number] Admin: 08/08/19 15:02 Dose: 650 mg Documented by: [id number] Hydralazine HCl (Hydralazine Hcl) 10 mg IV Q2H PRN PRN Reason: Blood Pressure - Low Stop: 09/07/19 07:35 Last Admin: 08/09/19 05:31 Dose: 10 mg Documented by: [id number] Admin: 08/09/19 02:07 Dose: 10 mg Documented by: [id number] Admin: 08/09/19 00:04 Dose: 10 mg Documented by: [id number] Admin: 08/08/19 18:00 Dose: 10 mg Documented by: [id number] Admin: 08/08/19 10:42 Dose: 10 mg Documented by: [id number] Admin: 08/08/19 08:27 Dose: 10 mg Documented by: [id number] Nicardipine HCl 50 mg/ Sodium (Chloride) 250 mls @ 30 mls/hr IV .[id number] JAIDEN; Protocol Stop: 09/07/19 09:14 Last Titration: 08/08/19 09:29 Dose: 0 mg/hr, 0 mls/hr Documented by: [id number] Admin: 08/08/19 09:27 Dose: 6 mg/hr, 30 mls/hr Documented by: [id number] Cosigned by: [id number] Ioversol (Optiray 320 125ml) 125 ml IV ONCE PRN PRN Reason: Interaction Checking Stop: 08/12/19 06:24 Last Admin: 08/08/19 06:25 Dose: 92 ml Documented by: [id number] Labetalol HCl (Normodyne) 200 mg PO BID JAIDEN Stop: 09/07/19 20:59 Last Admin: 08/08/19 20:49 Dose: 200 mg Documented by: [id number] Lisinopril (Zestril) 10 mg PO QAM [facility] Stop: 09/07/19 15:59 Last Admin: 08/08/19 16:04 Dose: 10 mg Documented by: [id number] Magnesium Hydroxide (Milk Of Magnesia) 30 ml PO HS JAIDEN Stop: 09/06/19 20:59 Last Admin: 08/08/19 18:04 Dose: 30 ml Documented by: [id number] Admin: 08/07/19 20:42 Dose: Not Given Documented by: [id number] Ondansetron HCl (Zofran) 4 mg IV Q4H PRN PRN Reason: Nausea And Vomiting Stop: 09/05/19 16:18 Last Admin: 08/06/19 20:56 Dose: 4 mg Documented by: [id number] Oxycodone/Acetaminophen (Percocet 5mg/325mg) 1 - 2 tab PO Q4H PRN PRN Reason: Pain Stop: 08/22/19 08:24 Last Admin: 08/09/19 00:54 Dose: 1 tab Documented by: [id number] Admin: 08/08/19 20:52 Dose: 1 tab Documented by: [id number] Admin: 08/08/19 16:52 Dose: 1 tab Documented by: [id number] Admin: 08/08/19 09:59 Dose: 2 tab Documented by: [id number] Potassium Chloride (Klor-Con M20) 40 meq PO TID JAIDEN Stop: 09/07/19 08:59 Last Admin: 08/08/19 20:49 Dose: 40 meq Documented by: [id number] Admin: 08/08/19 15:02 Dose: 40 meq Documented by: [id number] Admin: 08/08/19 08:27 Dose: Not Given Documented by: [id number] Prenat Multivit/Crane/Iron/Folic Ac ( Vitamin) 1 tab PO DAILY@08 [facility] Stop: 09/06/19 07:59 Last Admin: 08/08/19 08:26 Dose: 1 tab Documented by: [id number] Admin: 08/07/19 08:39 Dose: Not Given Documented by: [id number] Sennosides (Senokot) 17.2 mg PO HS [facility] Stop: 09/06/19 20:59 Last Admin: 08/08/19 20:50 Dose: 17.2 mg Documented by: [id number] Admin: 08/07/19 20:42 Dose: Not Given Documented by: [id number] PG Care Time/CCT Total # of Minutes Spent Total Time Spent with Patient: Total time spent is greater than 50% in coordination of care (as documented) at patient's floor/unit and/or counseling patient: Resident Activity Tracking Resident Involvement: Resident Care Provided Care Provided: Adult Hospital Medicine (ICU)
--- NOTE | 2019-08-09 07:48 | Obstetrical Progress Note ---
Date of Service <Blair Keane DO - Last Filed: 08/09/19 08:04> August 09, 2019 Assessment & Plan <DO Srinivasa Kaufman Last Filed: 08/09/19 08:04> (1) Chronic hypertension with superimposed pre-eclampsia: - POD#3 - secondary to chronic hypertension with superimposed severe preeclampsia - Patient was transferred to ICU secondary to pulmonary edema and for further control of BP the day prior. - Diuresed well in ICU. - Patient was on a Nicardipine drip while in ICU, has since been weened off. - Current Blood pressure control with Labetalol 200mg BID, Lisinopril 10mg QD, and Hydralazine 10mg PRN. - Recommend further follow up for BP control in the outpatient setting with patient's PCP. - Pain well controlled. - Routine post care - Plan for patient to transfer back to the Delivery Floor from ICU later today. - Likely follow up 3-4 days after discharge for blood pressure check. - After discharge will have [address] Adams (2) Maternal admission to intensive care unit: (3) Pulmonary edema: (4) Supervision of high risk , antepartum: (5) Diet controlled gestational diabetes mellitus (GDM), antepartum: Day #:: 3 Subjective <Blair Keane DO Srinivasa Last Filed: 08/09/19 08:04> Diet Tolerance:: regular diet Lochia:: Small Patient seen at the bedside in the ICU this AM with Dr. Turcios. Patient notes that she is feeling significantly better and that her only complaint is a slight headache, but that it comes and goes. She denies any RUQ pain, visual changes, dyspnea, fever, chills. She is requesting a script for a breast pump. Review of Systems All systems reviewed & are unremarkable except as noted in HPI & below Constitutional: no fever and no chills Physical Exam <Blair Osorioarianna Srinivasa Last Filed: 08/09/19 08:04> Constitutional well developed and well nourished; no acute distress Respiratory no respiratory distress, no labored breathing, no retractions and does not use accessory muscles Cardiovascular Rate/Rhythm: + tachycardic (105) Extremities: + edema (+1, vastly improved) Gastrointestinal (Abdomen) Inspection/Auscultation: + abdominal surgical incision (clean, dry, intact) Genitourinary OB Exam Abdomen: + fundal height Fundus: + firm and + relation to umbilicus (at the level of umbilicus); not tender and not boggy Results & Data <Blair Keane DO - Last Filed: 08/09/19 08:04> Vital Signs (Past 12 Hours) Vital Signs Temp Pulse Resp BP Pulse Ox 08/09/19 07:00 105 H 158/86 H 97 08/09/19 06:00 106 H 20 150/85 H 96 08/09/19 05:30 98 H 96 08/09/19 05:14 105 H 169/89 H 95 08/09/19 05:01 104 H 95 08/09/19 05:00 101 H 22 165/89 H 97 08/09/19 04:00 103 H 18 148/83 H 96 08/09/19 03:54 113 H 20 159/79 H 97 08/09/19 03:00 111 H 163/77 H 96 08/09/19 02:28 105 H 151/81 H 96 08/09/19 02:00 103 H 167/86 H 95 08/09/19 01:00 118 H 134/86 97 08/09/19 00:25 107 H 165/89 H 95 08/09/19 00:00 101 H 20 174/90 H 95 08/08/19 23:56 37.2 C 08/08/19 23:01 108 H 18 165/83 H 98 08/08/19 22:00 103 H 139/76 95 08/08/19 21:08 112 H 166/98 H 08/08/19 20:04 111 H <Ty Turcios MD - Last Filed: 08/09/19 08:10> Co-Signing Physician Notes Patient seen and evaluated and agree with the above findings and plan. BPs improved but still elevated. Pulmonary edema improved. ICU recommended return to floor today and will transfer when PP room become available from discharges Resident Activity Tracking <Blair Keane DO - Last Filed: 08/09/19 08:04> Resident Involvement: Resident Care Provided Care Provided: OB Delivery
[2019-08-09] MEDS: POTASSIUM CHLORIDE 20 MEQ TABCR PO SCH (08:19)
[2019-08-09] MEDS: LABETALOL HCL 200 MG TAB PO SCH ×2 (08:19→20:40)
[2019-08-09] MEDS: PRENATAL VITAMIN 1 TAB PO SCH (08:20)
[2019-08-09] MEDS ORDERED: ENALAPRIL MALEATE 5 MG TAB PO SCH (10:00)
--- NOTE | 2019-08-09 10:46 | Hospitalist Progress Note ---
Date of Service August 09, 2019 Assessment & Plan (1) Pulmonary edema: 34-year-old female with past medical history of hypertension, gestational diabetes, and obesity presented with pulmonary edema and elevated BPs post-op day 1. Now doing well in ICU for additional monitoring. Pulmonary edema -Secondary to fluid overload and severe preeclampsia -profound diuresis with IV Lasix 08/08. Didn't require any diuretics/Lasix overnight -08/08 ECHO: Mild concentric LVH. LV is hyperdynamic. RV systolic pressure is normal. No significant valvular heart disease. -08/09 CXR: near resolution of Pulmonary Edema and trace bilateral pleural effusion -08/08 Chest CTA: No evidence of acute pulmonary embolism -subjectively doing better. Sating well on RA Chronic hypertension -as evidenced by LVH seen on ECHO -continue labetalol 200 mg BID. Added Enalapril 5 mg daily. Both safe for use in . Will need to repeat BMP at next OB outpt visit to monitor kidney function -weaned off Cardene gtt -Hydralazine 10mg q2H PRN for systolic >160 -BP's improving, acceptable Diet controlled GDM -A1C 5.5. Can follow-up on her diabetes as an outpatient FEN/GI: OB Diet DVT Prophylaxis: Deferred. Ambulation Full Code Dispo: Stable for downgrade out of ICU today Supervising Physician Co-Signing Physician Notes I personally examined the patient and verified all collier points of history and exam, discussed case, and agree with decision making with Dr Claros. Feeling good overall. Breathing better, no new problems. Not planning on gett ing in the near future, or possibly ever again. Discussed medications. Vitals noted, in general she is awake and alert pleasant no distress. HEENT normocephalic atraumatic mucous members moist. Breathing unlabored no accessory muscle use good effort. Skin shows no rashes no pallor or icterus. Uncontrolled hypertension/severe preeclampsia/pulmonary edemarespiratory status essentially baseline now. Plan as above. Suspect given her borderline LVH with her young age that her blood pressure at home may not be as well controlled as she believes it to be. Discussed extensive ambulatory monitoring and outpatient regimen. Stable for transfer back to OB. Subjective 34 yo F found in bed this AM in NAD distress. Notes feeling much better since arriving in ICU. Profound UOP. No issues with breathing. Denies CP, SOB. Tolerating PO intake. No other acute concerns or complaints. Ok with plan for downgrade out of ICU. Review of Systems Review of Systems: All systems reviewed & are unremarkable except as noted in HPI & below Physical Exam Constitutional: WD/WN, vitals as above Eyes: PERRL, conjunctivae normal, anicteric sclerae ENMT: external ear and nose normal, oropharynx normal Respiratory: normal respiratory effort, lungs clear to auscultation Cardiovascular: RRR, no murmur, no edema Gastrointestinal (Abdomen): normal bowel sounds, soft, nontender, no hepatosplenomegaly Skin: no rashes, warm and dry Psychiatric: A+Ox3, euthymic affect Results & Data Vital Signs (Past 12 Hours) Vital Signs Temp Pulse Resp BP Pulse Ox 08/09/19 08:01 114 H 97 08/09/19 08:00 113 H 156/79 H 96 08/09/19 07:00 105 H 158/86 H 97 08/09/19 06:00 106 H 20 150/85 H 96 08/09/19 05:30 98 H 96 08/09/19 05:14 105 H 169/89 H 95 08/09/19 05:01 104 H 95 08/09/19 05:00 101 H 22 165/89 H 97 08/09/19 04:00 103 H 18 148/83 H 96 08/09/19 03:54 113 H 20 159/79 H 97 08/09/19 03:00 111 H 163/77 H 96 08/09/19 02:28 105 H 151/81 H 96 08/09/19 02:00 103 H 167/86 H 95 08/09/19 01:00 118 H 134/86 97 08/09/19 00:25 107 H 165/89 H 95 08/09/19 00:00 101 H 20 174/90 H 95 08/08/19 23:56 37.2 C 08/08/19 23:01 108 H 18 165/83 H 98 Laboratory Results Laboratory Results - last 24 hr 08/08/19 08/09/19 08/09/19 20:47 03:52 03:52 WBC 16.09 H RBC 4.14 L Hgb 12.0 Hct 35.5 L MCV 85.7 MCH 29.0 MCHC 33.8 RDW Std Deviation 47.9 H RDW Coeff of Ximena 15.3 H Plt Count 219 MPV 9.7 Immature Gran % (Auto) 0.4 Neut % (Auto) 76.5 Lymph % (Auto) 15.9 Hancock % (Auto) 4.9 Eos % (Auto) 2.1 Baso % (Auto) 0.2 Immature Gran # (Auto) 0.06 H Neut # (Auto) 12.31 H Lymph # (Auto) 2.56 Hancock # (Auto) 0.79 H Eos # (Auto) 0.34 Baso # (Auto) 0.03 PT INR APTT PTT Ratio Sodium Potassium Chloride Carbon Dioxide Anion Gap BUN Creatinine Est Cr Clr Drug Dosing Est GFR ( Amer) Est GFR (Non-Af Amer) BUN/Creatinine Ratio Glucose POC Glucose 94 Estimat Average Glucose 111 Hemoglobin A1c 5.5 Calcium Phosphorus Magnesium Total Bilirubin Direct Bilirubin AST ALT Alkaline Phosphatase Total Protein Albumin Lipase 08/09/19 08/09/19 08/09/19 03:52 03:52 06:13 WBC RBC Hgb Hct MCV MCH MCHC RDW Std Deviation RDW Coeff of Ximena Plt Count MPV Immature Gran % (Auto) Neut % (Auto) Lymph % (Auto) Hancock % (Auto) Eos % (Auto) Baso % (Auto) Immature Gran # (Auto) Neut # (Auto) Lymph # (Auto) Hancock # (Auto) Eos # (Auto) Baso # (Auto) PT 9.6 INR 0.9 APTT 28.8 PTT Ratio 1.1 Sodium 138 Potassium 3.8 Chloride 107 Carbon Dioxide 25 Anion Gap 6.0 BUN 11 Creatinine 0.79 Est Cr Clr Drug Dosing 130.6 Est GFR ( Amer) 111.6 Est GFR (Non-Af Amer) 96.3 BUN/Creatinine Ratio 13.8 Glucose 92 POC Glucose 109 H Estimat Average Glucose Hemoglobin A1c Calcium 8.7 Phosphorus 3.5 Magnesium 2.2 Total Bilirubin 0.5 Direct Bilirubin 0.1 AST 22 ALT 14 Alkaline Phosphatase 59 Total Protein 6.1 L Albumin 2.2 L Lipase 72 L Medications Administered Current Inpatient Medications Acetaminophen (Tylenol) 650 mg PO Q6H PRN PRN Reason: Headache Stop: 09/07/19 14:40 Last Admin: 08/09/19 06:17 Dose: 650 mg Documented by: Benzocaine (Dermoplast Pain Relieving Merriam) 1 appln EXT UD PRN PRN Reason: use on skin as needed Stop: 09/05/19 16:18 Cocaine HCl (Supercream 0.870%) 1 gm EXT UD PRN PRN Reason: hemmorrhoidal inflammation Stop: 08/20/19 16:18 Diphenhydramine HCl (Benadryl Capsule) 25 mg PO QID PRN PRN Reason: Itching Stop: 09/06/19 09:14 Diphenhydramine HCl (Benadryl) 25 mg IV QID PRN PRN Reason: Itching Stop: 09/06/19 09:14 Enalapril Maleate (Vasotec) 5 mg PO DAILY [facility] Stop: 09/08/19 09:59 Hydralazine HCl (Hydralazine Hcl) 10 mg IV Q2H PRN PRN Reason: Blood Pressure - Low Stop: 09/07/19 07:35 Last Admin: 08/09/19 05:31 Dose: 10 mg Documented by: Hydrocortisone (Anusol Hc) 25 mg [place] BID PRN PRN Reason: Hemorrhoids Stop: 09/05/19 16:18 Ioversol (Optiray 320 125ml) 125 ml IV ONCE PRN PRN Reason: Interaction Checking Stop: 08/12/19 06:24 Last Admin: 08/08/19 06:25 Dose: 92 ml Documented by: Labetalol HCl (Normodyne) 200 mg PO BID [facility] Stop: 09/07/19 20:59 Last Admin: 08/09/19 08:19 Dose: 200 mg Documented by: Magnesium Hydroxide (Milk Of Magnesia) 30 ml PO HS [facility] Stop: 09/06/19 20:59 Last Admin: 08/08/19 18:04 Dose: 30 ml Documented by: Miscellaneous (Icu Protocol For Hyperglycemia) 1 ea N/A PRN PRN; Protocol PRN Reason: Hyperglycemia Protocol Stop: 08/10/19 06:38 Ondansetron HCl (Zofran) 4 mg IV Q4H PRN PRN Reason: Nausea And Vomiting Stop: 09/05/19 16:18 Last Admin: 08/06/19 20:56 Dose: 4 mg Documented by: Oxycodone/Acetaminophen (Percocet 5mg/325mg) 1 - 2 tab PO Q4H PRN PRN Reason: Pain Stop: 08/22/19 08:24 Last Admin: 08/09/19 00:54 Dose: 1 tab Documented by: Potassium Chloride (Klor-Con M20) 40 meq PO TID JAIDEN Stop: 09/07/19 08:59 Last Admin: 08/09/19 08:19 Dose: 40 meq Documented by: Prenat Multivit/Jasper/Iron/Folic Ac ( Vitamin) 1 tab PO DAILY@08 JAIDEN Stop: 09/06/19 07:59 Last Admin: 08/09/19 08:20 Dose: 1 tab Documented by: Sennosides (Senokot) 17.2 mg PO HS [facility] Stop: 09/06/19 20:59 Last Admin: 08/08/19 20:50 Dose: 17.2 mg Documented by: Resident Activity Tracking Resident Involvement: Resident Care Provided Care Provided: Adult Hospital Medicine
[2019-08-09] MEDS: LISINOPRIL 10 MG TAB PO SCH (10:59)
[2019-08-09] MEDS ORDERED: ENALAPRIL MALEATE 5 MG TAB PO STA (16:41)
--- NOTE | 2019-08-09 17:36 | Billing Data ---
Coding Level of Care Code 61043 Subseq Hosp Care Lvl 2
[2019-08-09] MEDS: SENNA 8.6 MG TAB PO SCH (20:52)
[2019-08-09] MEDS: MAGNESIUM HYDROXIDE SUSP 30 ML UDC PO SCH (20:53)
[2019-08-10] MEDS: HydrALAZINE HCL 20 MG/ML VIAL IV PRN ×5 (00:42→19:43)
[2019-08-10] MEDS: OXYCODONE/ACETAMINOPHEN 5mg/325mg TAB PO PRN ×6 (00:42→20:55)
--- NOTE | 2019-08-10 07:00 | Obstetrical Progress Note ---
Date of Service <Blair BallardDO nuzhat - Last Filed: 08/10/19 07:00> August 10, 2019 Assessment & Plan <Blair OsorioDO arianna - Last Filed: 08/10/19 07:00> (1) Chronic hypertension with superimposed pre-eclampsia: - POD#4 -Blood Type A+ - secondary to chronic hypertension with superimposed severe preeclampsia - Patient was transferred to ICU secondary to pulmonary edema and for further control of BP, diuresed well in ICU. - Returned to floor yesterday evening. - Current Blood pressure control with Labetalol 200mg BID, Enalapril 10mg QD, and Hydralazine 10mg PRN. - Recommend further follow up for BP control in the outpatient setting with patient's PCP. - Will require follow up labs in the outpatient setting secondary to starting ACEi. - Routine post care - Likely follow up 3-4 days after discharge for blood pressure check. - After discharge will have [address] Adams (2) Maternal admission to intensive care unit: (3) Pulmonary edema: (4) Supervision of high risk , antepartum: (5) Diet controlled gestational diabetes mellitus (GDM), antepartum: Day #:: 4 Subjective <Blair BallardDO nuzhat - Last Filed: 08/10/19 07:00> Ambulation: ambulating normally Voiding: no voiding problems Passing Gas:: Yes Diet Tolerance:: regular diet Lochia:: Small Feeding Type:: breast feeding Current Pain Level(1-10): 7 (improves with analgesics) Patient is a 34 POD#4. Patient states that she is feeling much better than she has this morning. Notes that her swelling is improved and that she is having no trouble breathing. She does state that her blood pressure has still been high and understands that this will have to be addressed before she can go home. She has no other complaints at this time. Constitutional: no fever and no chills Respiratory: no cough, no dyspnea and no wheezing Cardiovascular: + edema; no chest pain, no dyspnea, no dyspnea on exertion and no calf pain Breast: no breast pain Gastrointestinal: + abdominal pain (lower quadrants, along incision); no nausea and no vomiting Genitourinary (female): no dysuria Neurologic: no headache(s) Physical Exam <Blair Keane DO - Last Filed: 08/10/19 07:00> Constitutional WD/WN, vitals as above Respiratory normal respiratory effort, lungs clear to auscultation Cardiovascular Rate/Rhythm: regular rate and regular rhythm Heart Sounds: normal S1 and normal S2; no click, no gallop, no murmur and no cardiac rub Extremities: + edema (+1); no calf tenderness Gastrointestinal (Abdomen) Inspection/Auscultation: abdomen normal to inspection, normal bowel sounds and + abdominal surgical incision (Clean and Dry, No Pus noted. ) Percussion/Palpation: + abdomen tender (TTP in lower quadrants, appropriate.) and abdomen soft Neurologic patellar DTR's 2+ bilat, sensation intact Genitourinary OB Exam Abdomen: + fundal height Fundus: + firm and + relation to umbilicus (1cm below); not tender and not boggy Results & Data <DO Srinivasa Kaufman Last Filed: 08/10/19 07:00> Vital Signs (Past 12 Hours) Vital Signs Temp Pulse Pulse Pulse Resp BP Pulse Ox 08/10/19 05:50 94 H 181/83 H 08/10/19 05:05 185/95 H 08/10/19 03:00 36.4 C L 94 H 16 173/78 H 98 08/10/19 00:35 36.9 C 99 H 18 165/82 H 97 08/09/19 21:45 103 H 161/82 H 08/09/19 20:38 102 H 171/96 H 08/09/19 19:35 106 H 176/97 H 08/09/19 19:25 37.0 C 108 H 18 181/94 H 97 <Christiane Banerjee MD, FACOG - Last Filed: 08/10/19 07:55> Co-Signing Physician Notes Resident Physician Supervision Note: I was present with Dr. Keane during the history and exam. I discussed the case with the resident and agree with the findings and plan as documented in the note. Any exceptions or clarifications are listed here: BP still somewhat labile. Will follow with the medical team, does not meet discharge criteria at this time Documented By: Christiane Banerjee MD, FACOG Resident Activity Tracking <DO Srinivasa Kaufman Last Filed: 08/10/19 07:00> Resident Involvement: Resident Care Provided Care Provided: OB Delivery
[2019-08-10 07:12] LABS: Basophils # (auto) 0.02 K/uL (0-0.2); Basophils % (auto) 0.1 %; Eosinophils # (auto) 0.55 K/uL (0-0.5); Hematocrit (blood only) 38.2 % (37-47); Hemoglobin 12.9 g/dL (12.0-16.0); Immature Granulocytes # (auto) 0.06 K/uL (0.00-0.02); Immature Granulocytes % (auto) 0.4 %; Lymphocytes # (auto) 2.29 K/uL (1.2-3.4); Lymphocytes % (auto) 16.5 %; Mean Corpuscular Hemoglobin 29.2 pg (25-34); Mean Corpuscular Hgb Conc 33.8 g/dL (32-36); Mean Corpuscular Volume 86.4 fL (80-100); Mean Platelet Volume 9.5 fL (7.4-10.4); Monocytes # (auto) 0.68 K/uL (0.11-0.59); Monocytes % (auto) 4.9 %; Neutrophils # (auto) 10.31 K/uL (1.4-6.5); Neutrophils % (auto) 74.1 %; Platelet Count 233 K/uL (130-400); RDW Coefficient of Variation 15.4 % (11.5-14.5); RDW Standard Deviation 49.3 fL (36.4-46.3); Red Blood Count 4.42 M/uL (4.2-5.4); White Blood Count 13.91 K/uL (4.8-10.8)
[2019-08-10 07:53] LABS: BUN Creatinine Ratio 19.2 (10-20); Calcium 9.2 mg/dl (8.5-10.1); Creatinine Clr Calc Pharmacy 117.5 ml/min; Est GFR (African American) 103.6; Est GFR (Non-African American) 89.4; Potassium 3.9 mmol/L (3.5-5.1)
[2019-08-10] MEDS: PRENATAL VITAMIN 1 TAB PO SCH (07:53)
[2019-08-10] MEDS ORDERED: ENALAPRIL MALEATE 10 MG TAB PO SCH (09:00)
[2019-08-10] MEDS: LABETALOL HCL 200 MG TAB PO SCH ×2 (09:21→20:49)
[2019-08-10] MEDS: ENALAPRIL MALEATE 10 MG TAB PO SCH (09:22)
--- NOTE | 2019-08-10 18:34 | Hospitalist Progress Note ---
Date of Service August 10, 2019 Assessment & Plan (1) Pulmonary edema: related to severe pre-eclampsia and baseline HTN - now improved. breathing well. no need for further lasix. now getting far enough her risk is reducing significantly. (2) Chronic hypertension with superimposed pre-eclampsia: see above. d/w pt that the further she gets , she is changing from high risk severe preeclampsia with baseline HTN to otherwise healthy 34yo with essential hypertension. with another day or so of reasonable control, would anticipate she'd be safe for discharge. (3) Essential hypertension: still poorly controlled. with a little LVH noted on her echo, i do suspect that she probably has baseline worse control than she realized (unless this was false positive related to overall situation - would repeat echo ~6 months for f/u) -due to poor control - increase labetalol and enalapril. d/w pt yesterday she has no intention of getting again anytime soon if ever, and understands that if she were to get enalapril would increase risk of teratogenicity. d/w pt need for f/u BMP ~1-2wks in office and ambulatory BP monitoring. with better control over next 24hrs hopefully can be medically safe for d/c home tomorrow -current meds appear risk/benefit favorable to be OK for Subjective feeling better breathing well eating Ok moving around better. still quite nervous given BP still running quite high this AM. no chest pain no sob. no blurred vision, headaches (+) but thinks was caffeine related and improving. no confusion. no focal neuro deficits. extensive discussion on outpt f/u and management - she expresses good understanding Review of Systems Review of Systems: All systems reviewed & are unremarkable except as noted in HPI & below Physical Exam Physical Exam: gen pleasant nad heent nc at mmm breathing unlabored no accessory muscles no distress. skin no rashes no pallor or icterus. no focal neuro deficits. Results & Data Vital Signs (Past 12 Hours) Vital Signs Temp Pulse Pulse Resp BP Pulse Ox 08/10/19 15:00 98.1 F 102 H 18 142/79 H 97 08/10/19 11:50 97.7 F 92 H 20 147/78 H 97 08/10/19 10:30 137/78 08/10/19 10:00 147/79 H 11/16/19 09:20 179/95 H 08/10/19 07:45 175/85 H 08/10/19 07:20 97.7 F 16 L 110 H 16 178/84 H 98 PG Care Time/CCT Total # of Minutes Spent Total Time Spent with Patient: Total time spent is greater than 50% in coordination of care (as documented) at patient's floor/unit and/or counseling patient:
[2019-08-10] MEDS: SENNA 8.6 MG TAB PO SCH (20:53)
[2019-08-10] MEDS: MAGNESIUM HYDROXIDE SUSP 30 ML UDC PO SCH (20:55)
[2019-08-11] MEDS: OXYCODONE/ACETAMINOPHEN 5mg/325mg TAB PO PRN ×2 (03:13→09:09)
--- NOTE | 2019-08-11 08:37 | Obstetrical Progress Note ---
Date of Service August 11, 2019 Assessment & Plan (1) Chronic hypertension with superimposed pre-eclampsia: post section recovery has been benign BP has been labile at this time still required hydralazine for BP elevation last night. BP med regimen has been adjusted to 300mg labetalol tid last night. will monitor for now & defer to hospitalist for timing of discharge Subjective Ambulation: ambulating normally Voiding: no voiding problems Passing Gas:: Yes Diet Tolerance:: regular diet Lochia:: Small Feeding Type:: breast feeding No PIH symptoms , feels well, incision pain is minimal with pain meds Review of Systems All systems reviewed & are unremarkable except as noted in HPI & below Physical Exam Constitutional WD/WN, vitals as above Gastrointestinal (Abdomen) Inspection/Auscultation: abdomen normal to inspection and + abdominal surgical incision (intact & dry, no cellulitis) Psychiatric A+Ox3, euthymic affect Genitourinary OB Exam Abdomen: + fundal height Fundus: + firm and + relation to umbilicus (3 below); not tender Results & Data Vital Signs (Past 12 Hours) Vital Signs Temp Pulse Pulse Resp BP Pulse Ox 08/11/19 07:10 97.9 F 92 H 16 164/93 H 97 08/11/19 03:45 97.9 F 89 18 149/82 H 97 08/10/19 23:00 98.2 F 92 H 18 139/81 08/10/19 22:00 142 H 90 142/80 H 08/10/19 20:49 98 H 182/76 H
[2019-08-11] MEDS: PRENATAL VITAMIN 1 TAB PO SCH (09:09)
[2019-08-11] MEDS: ENALAPRIL MALEATE 10 MG TAB PO SCH (09:11)
[2019-08-11] MEDS: LABETALOL HCL 300 MG TAB PO SCH ×2 (09:13→14:39)
--- NOTE | 2019-08-11 11:21 | Discharge Summary ---
Date of Service August 11, 2019 Admission HPI Per Admitting Provider The patient is a 34-year-old 2 para 0 with an EDC of 07 September by dates and first trimester ultrasound, at 35+ weeks gestational age, who presents today from the office for evaluation of elevated blood pressure. The patient carries a diagnosis of chronic hypertension predating the . She has been on labetalol 100 mg twice daily throughout the . Patient was seen today for a scheduled nonstress test. She was noted to have markedly elevated blood pressures in the 200/120 range and was sent to labor and delivery for evaluation. The patient is not complaining of any headache or right upper quadrant pain. She has noticed an increase in the swelling over the last 48 hours but in general she states that she feels well. The patient has been followed with the chronic hypertensive protocol. She has been on baby aspirin since the first trimester. She has had serial ultrasounds for growth which have been reassuring and has had testing which has been reassuring. Patient was also diagnosed with diabetes gestational at 28 weeks gestational age and has been diet controlled. Laboratory values for this show blood type of A+, antibody negative, rubella immune, hepatitis B negative, HIV negative, the patient declined all genetic screening both maternal and , gestational diabetes diagnosed to 28 weeks, no third trimester beta strep culture. Principal Diagnosis htn Discharge Exam Constitutional WD/WN, vitals as above Eyes PERRL, conjunctivae normal, anicteric sclerae ENMT external ear and nose normal, oropharynx normal Respiratory normal respiratory effort, lungs clear to auscultation Cardiovascular RRR, no murmur, no edema Gastrointestinal (Abdomen) normal bowel sounds, soft, nontender, no hepatosplenomegaly Skin no rashes, warm and dry Psychiatric A+Ox3, euthymic affect Discharge Data Allergies Allergy/AdvReac Type Severity Reaction Status Date / Time No Known Drug Allergies Allergy Verified 07/30/19 10:00 Consultations 08/06/19 13:39 Consult Anesthesiology Stat 08/07/19 16:29 Consult Hospitalist Stat 08/08/19 06:39 Consult Case Management - Discharge Planning Routine Consult Rn Endocrinology Routine Procedures Performed Operation Date: 08/06/19 14:30 Actual Procedures p Section in LD(Bilateral) - Guillermo Adams Jr, MD, FACOG Ordered Studies 08/08/19 05:59 CT angio chest PE protocol Stat Hospital Course (1) Pulmonary edema: 34-year-old female with past medical history of hypertension, gestational diabetes, and obesity presented with pulmonary edema and elevated BPs post-op day 1. Now resolved and managing her essential HTN. The following is the medical management during stay here: Pulmonary edema-resolved -Secondary to fluid overload and severe preeclampsia -profound diuresis with IV Lasix 08/08. Didn't require any diuretics/Lasix thereafter -08/08 ECHO: Mild concentric LVH. LV is hyperdynamic. RV systolic pressure is normal. No significant valvular heart disease. -08/09 CXR: near resolution of Pulmonary Edema and trace bilateral pleural effusion -08/08 Chest CTA: No evidence of acute pulmonary embolism -subjectively doing better. Sating well on RA Chronic hypertension -as evidenced by LVH seen on ECHO -on d/c, continue labetalol 400 mg BID. Added Enalapril 20 mg daily. Both safe for use in . Educated that if she were to get enalapril would increase risk of teratogenicity. Will need to repeat BMP at next provider outpt visit to monitor kidney function -Hydralazine 10mg q2H PRN for systolic >160. Weaned off cardizem gtt -BP's improving, acceptable for d/c -encouraged frequent home BP readings to monitor pressures prior to next provider appt Diet controlled GDM -A1C 5.5. Can follow-up on her diabetes as an outpatient At time of d/c, pt had no other acute concerns or complaints. Total Time Total Time Spent Total Time Spent (In Minutes): >30 Discharge Plan Discharge Items Patient Disposition: Home - Self-Care Reason For Visit: BP CHECKS Discharge Diagnosis: severe pre-eclampsia recovery from section Condition on Discharge: Good Activity: Per Instructions section Non-emergency contact: Primary Care Provider and Manager Personnel Selection Call non-emergency contact if: your symptoms worsen, your pain is concerning for you, your temperature is above 101, your wound has increased redness, your wound has increased drainage and your wound pain has increased Follow-up/Referrals: Pepe Valderrama III, CRNP [Primary Care Provider] - 08/15/19 9:15 am (Please, follow up at Pepe Valderrama's office with his associate, Sylvia BAXTER, on August 15 at 9:15 am. *If you need to change this appointment, call the office at [phone].) Diet: Regular OB Addtl Attending Provider Instructions: ACTIVITY RECOMMENDATIONS: * Gradual return to full activity over the next 2-3 weeks. * No lifting - nothing heavier than baby over the next 2-3 weeks. * Do not engage in vigorous exercise, sexual activity or sports until cleared by your physician. * Do not drive or operate any motorized equipment until cleared by your physici an. * You may shower/bathe daily. MEDICATIONS: For discomfort or pain, you may use Acetaminophen (Tylenol), Ibuprofen (Advil), or Naproxen (Aleve) following the package directions. For constipation you may use Colace following the package directions. BREAST CARE: If you are not breast feeding: * Wear a supportive bra 24 hours a day for one to two weeks. * Avoid stimulating your breasts and nipples as much as possible during the first few weeks after delivery. * When taking a shower, have the warm water hit your back, not breasts. * When your breasts feel full, apply ice packs. Usually three to four times a day helps ease the discomfort. * Take a mild pain medication (Tylenol / Motrin) when you are uncomfortable. If breast feeding: * Use breast milk to lubricate nipples. Lansinoh cream may be used for sore nipples. You do not need to remove cream prior to breast feeding. If using a different brand of cream, check the label for directions regarding removal of cream prior to nursing. * Wear a supportive bra. * If having problems with breasts or breast feeding, call a trousseau consultant or your health care provider. SPECIAL CARE INSTRUCTIONS: When you are discharged from the hospital, it is important for you to follow the instructions listed below: * During the first week at home, you should be able to care for yourself and your baby. In addition, the usual light household activities are encouraged. * Limit your activities to the way you feel. Do not try to clean the house or move furniture. Be sensible. * If you actively engage in sports and have done so up until the time of your delivery, you may resume these activities as soon as you feel able. This may take up to one month or even longer. Use good judgment. * Continue to take your vitamins for at least six weeks after the of your baby. * Your diet need not be limited unless you were on a special diet before your delivery. Breast-feeding mothers need around 2500 calories per day and at least 64-80 ounces of fluid per day (8 to 10 glasses). * You should eat foods from the four major food groups. Crash diets or fad diets are to be avoided. Eating lean meats, fresh fruits and vegetables, low-fat dairy products, high fiber foods and a regular exercise program, will help you get back to your pre- weight without putting your health at risk. * Constipation is sometimes a problem after delivery. Take a mild laxative as needed. If breast feeding, Milk of Magnesia is acceptable to use. You may use a suppository or Fleets enema. * A daily shower or tub bath is suggested. Wash incision daily with warm soapy water and pat dry. It doesn't need to be covered unless drainage is present. * A bloody vaginal discharge will usually continue until around four weeks . A small amount of bleeding may continue for as long as six weeks. Vaginal discharge changes from the bright red bleeding after delivery to pink then brownish and finally yellowish-pink before becoming white and disappearing. * Bleeding may increase with activity. Your first period may come in 4-8 weeks. If you are breast feeding, your period may be delayed even longer. * [place] (sex) can begin whenever both you and your partner feel comfortable and do not have any form of genital infection. It is recommended that you wait at least six weeks for internal and external healing to occur. If you have questions, please talk to your health care practitioner. A condom should be used to prevent infection and . * Foreplay, gentle intercourse and lubrication is very important the first several times to prevent pain. A water-based lubricant such as K-Y jelly or Astroglide may be used. * If you have RH negative blood and your baby is RH positive, you will receive RHOGAM by injection prior to discharge. The nurse will give you a card to keep with you that has the date and place that you received RHOGAM after delivery. * During your care, you had a Rubella screen done to check for the presence of rubella antibodies in your blood. If your test was negative, you will receive a Rubella vaccine prior to discharge. This vaccine may cause a fever, soreness at the injection site and flu-like symptoms. If these symptoms persist, notify your health care practitioner. is not advised for one month after a Rubella vaccine. * Verbalizes understanding of car seat law as reviewed with patient nursing. * Car Seat hand-out given and reviewed with patient by nursing. * Shaken baby information reviewed with patient by nursing. Call you doctor if: * Heavy bleeding (saturating several pads an hour) or passing clots the size of your fist. * A fever >101 degrees F (38.3 degrees C) on two occasions four hours apart and/or chills. * Unusual pain in the pelvic or vaginal areas. * Call the doctor for any increased redness, drainage or swelling around the incision and any pain unrelieved by prescribed pain medication. * "Baby Blues" lasting longer than two weeks. If you have any questions or concerns, call your health care practitioner at . FOLLOW UP VISIT: * Please call the office at to schedule a 6 week examination. It is important you keep this appointment. It is important for you to make arrangements for either yearly or twice yearly check-ups thereafter Hypertension: Do spot checks of Blood Pressure at home once discharged and keep a log You will be taking Labetolol 400 mg twice a day and Enalapril 20mg daily Follow up appt as outlined before. Pending Studies at Discharge: No Stand-Alone Forms: [facility] Medications and DC Order Prescriptions: New Breast Pump 1 units XX ONCE Qty: 1 RF: 0 oxycodone-acetaminophen 5-325 mg tablet 1 tab PO Q6H Qty: 20 RF: 0 labetalol 300 mg tablet 300 mg PO TID Qty: 30 RF: 0 enalapril maleate 20 mg tablet 20 mg PO DAILY Qty: 30 RF: 0 labetalol 200 mg tablet 400 mg PO BID Qty: 30 RF: 0 Continued PNV cmb#95-ferrous fumarate-FA [] 28 mg iron- 800 mcg Tablet 1 tab PO DAILY RF: 0 Discontinued aspirin [Adult Low Dose Aspirin] 81 mg tablet,delayed release (DR/EC) 81 mg PO DAILY RF: 0 (DME) Ketone Urine Test strip See Dose Instructions [id number] .MEDSUPPLY Qty: 50 RF: 2 (DME) OneTouch Verio strip See Dose Instructions .ROUTE .MEDSUPPLY Qty: 120 RF: 2 (DME) lancets [OneTouch Delica Plus Lancet] 33 gauge misc See Dose Instructions [id number] .MEDSUPPLY Qty: 120 RF: 2 labetalol 100 mg tablet 100 mg PO Q12 RF: 0 Discharge Orders: Discharge Order (Routine); Ordered 08/11/19 Ordered By: Jon Whitehead/Other Patient Handouts: Hypertension Control, DVT Prevent, Depression , Hypertension Dc, Meds Blood Pressure Dc Admission Data Admit Date/Time: 08/06/19 13:39 Attending Provider: Guillermo Adams Jr Admit Provider: Guillermo Adams Jr Primary Care Provider: Pepe Valderrama III Other Providers: Quincy Pinto ; Jessica Cisneros ; Zeyad Portillo Other Interventions: Discharge Summary Assessment (RN) Last Done: 08/11/19 13:13 DC Date/Time DO NOT enter until pt leaves facility: 08/11/19 17:40 Supervising Physician Co-Signing Physician Notes I personally examined the patient and verified all ocllier points of history and exam, discussed case, and agree with decision making with Dr Claros. feeling better ready to go home. extensive discussions with pt and on BP mangaement, follow up, symptoms to watch for, guidelines for baseline control, etc. vitals noted nad breathing unlabored no pallor or icterus no focal neuro deficits HTN - now essentially just essential hypertension - pre-eclampsia/pulmonary edema now resolved. stable for home. BP management, close and vigilant home monitoring, BMP this week or no later than next since new-start ACEi. close PCP f/u. Resident Activity Tracking Resident Involvement: Resident Care Provided Care Provided: Adult Hospital Medicine
--- NOTE | 2019-08-11 18:43 | Billing Data ---
Coding Level of Care Code D/C Day Management >30 mins
== END 2019-08-11 17:40 | disposition home or self-care (01) | DRG 786 ==
LOC: OPB 12:42 → 4S1 12:43 → 1E 08-08 06:32 → 4S2 08-09 13:30